=== PATIENT | female | born 1955 | race Caucasian/White ===

== ENCOUNTER 2016-03-10 02:53 | Emergency (ER) | payer MEDICARE, MEDICAID ==
[2016-03-10] MEDS ORDERED: Albuterol/Ipratropium NEB.SOL* Albuterol 2.5 MG/Ipratropium 0.5 MG 3 ML INH ONE (03:31)
[2016-03-10 04:52] LABS: Hematocrit 38 % (35-47); Hemoglobin 12.5 g/dl (12.0-16.0); Mean Corpuscular HGB Conc 33 g/dl (31-36); Mean Corpuscular Hemoglobin 31 pg (27-31); Mean Corpuscular Volume 94 fL (80-97); Mean Platelet Volume 8 um3 (7.4-10.4); Red Blood Count 4.02 10^6/ul (4.0-5.4); Red Cell Distribution Width 14 % (10.5-15); White Blood Count 8.3 10^3/ul (3.5-10.8)
[2016-03-10 04:53] LABS: Albumin 3.8 g/dL (3.2-5.2); BUN/Creatinine Ratio 17.1 (8-20); C Reactive Protein 15.17 mg/L (< 5.00); Calcium 9.8 mg/dL (8.6-10.3); EGFR African American 100.2 (>60); EGFR Non-African American 77.9 (>60); Globulin 3.3 g/dL (2-4); Magnesium 2.1 mg/dL (1.9-2.7); Potassium 3.9 mmol/L (3.5-5.0); Total Bilirubin 0.4 mg/dL (0.2-1.0); Total Protein 7.1 g/dL (6.4-8.9)
[2016-03-10 04:56] LABS: Troponin I 0.01 ng/mL (<0.04)
[2016-03-10 05:43] VITALS: BP 138/83
[2016-03-10] MEDS ORDERED: Azithromycin TAB* 250 MG PO ONE (05:44)
--- NOTE | 2016-03-10 05:49 | ED ---
Jim Brower Adam, scribed for Jefferson Avila MD on 03/10/16 at 0323 . Respiratory - HPI Summary HPI Summary: Pt is a 60 year old female brought in from [facility] with low o2 sat. She was given a breathing treatment prior to coming to the ED. She also presents with cough and congestion which have been present for 2 weeks. Negative Hx of COPD and she is not on home o2. PMHx of MS. Positive tobacco Hx. - History of Current Complaint Chief Complaint: EDUpperRespComplaint Stated Complaint: COUGH Hx Obtained From: Patient Onset/Duration: Gradual Onset, Lasting Weeks, Still Present Timing: Constant Initial Severity: Moderate Current Severity: Moderate Character: Cough (Productive), Dyspnea at Rest Sputum Amount: Moderate Aggravating Factor(s): Nothing Alleviating Factor(s): Nothing - Allergy/Home Medications Allergies/Adverse Reactions: Allergies Allergy/AdvReac Type Severity Reaction Status Date / Time Latex Allergy Unknown Verified 07/02/15 15:24 Reaction Details PMH/Surg Hx/FS Hx/Imm Hx Endocrine/Hematology History: Denies: Hx Anticoagulant Therapy, Hx Diabetes, Hx Thyroid Disease Cardiovascular History: Reports: Other Cardiovascular Problems/Disorders - PVD Denies: Hx Congestive Heart Failure, Hx Hypertension, Hx Pacemaker/ICD Respiratory History: Reports: Hx Chronic Obstructive Pulmonary Disease (COPD) Denies: Hx Asthma, Other Respiratory Problems/Disorders GI History: Reports: Hx Gastroesophageal Reflux Disease, Other GI Disorders - chronic constipation History: Reports: Other Problems/Disorders - frequent UTI Denies: Hx Dialysis, Hx Renal Disease Musculoskeletal History: Reports: Other Musculoskeletal History - chronic right leg pain, contractures d/t MS Comment Only: Hx Arthritis - OSTEO Sensory History: Reports: Hx Cataracts, Hx Contacts or Glasses Denies: Hx Hearing Aid Opthamlomology History: Reports: Hx Cataracts, Hx Contacts or Glasses Neurological History: Reports: Other Neuro Impairments/Disorders - ADVANCED MS, QUADRAPALEGIC Denies: Hx Dementia, Hx Seizures Psychiatric History: Reports: Hx Anxiety, Hx Depression, Hx Substance Abuse, Other Psychiatric Issues/Disorders - insomnia Denies: Hx Panic Disorder - Surgical History Surgery Procedure, Year, and Place: 3 skin grafts on right arm; URETERAL STENT, [facility] 2009, [facility], RIGHT ILIAC ARTERY; cataract repair Hx Anesthesia Reactions: No Infectious Disease History: No Infectious Disease History: Denies: Hx Hepatitis, Hx Human Immunodeficiency Virus (HIV), Traveled Outside the [place] in Last 30 Days - Family History Known Family History: Positive: Other - Negative malignant hyperthermia, negative anesthesia reaction - Social History Occupation: Disabled Lives: [employer] Alcohol Use: None Hx Substance Use: No Substance Use Type: Reports: None Hx Tobacco Use: Yes Smoking Status (MU): Former Smoker Review of Systems Positive: Other - Congestion Positive: Shortness Of Breath, Cough All Other Systems Reviewed And Are Negative: Yes Physical Exam Triage Information Reviewed: Yes Vital Signs On Initial Exam: Initial Vitals Temp Pulse Resp BP Pulse Ox 96.4 F 84 16 170/84 96 03/10/16 02:56 03/10/16 02:56 03/10/16 02:56 03/10/16 02:56 03/10/16 02:56 Vital Signs Reviewed: Yes Appearance: Positive: Well-Appearing, No Pain Distress Skin: Positive: Warm, Skin Color Reflects Adequate Perfusion, Dry Head/Face: Positive: Normal Head/Face Inspection Eyes: Positive: EOMI, EMILY ENT: Positive: Normal ENT inspection Neck: Positive: Supple, Nontender Respiratory/Lung Sounds: Positive: Rhonchi - Bilaterally Cardiovascular: Positive: RRR Abdomen Description: Positive: Nontender, Soft Bowel Sounds: Positive: Present Musculoskeletal: Positive: Other - Not moving upper or lower extremities. Neurological: Positive: Normal, Sensory/Motor Intact, Alert, Oriented to Person Place, Time Psychiatric: Positive: Affect/Mood Appropriate Diagnostics - Vital Signs Vital Signs Temp Pulse Resp BP Pulse Ox 03/10/16 02:56 96.4 F 84 16 170/84 96 - Laboratory Lab Results: Lab Results 03/10/16 03/10/16 03/10/16 Range/Units 04:00 04:00 04:00 WBC 8.3 (3.5-10.8) 10^3/ul RBC 4.02 (4.0-5.4) 10^6/ul Hgb 12.5 (12.0-16.0) g/dl Hct 38 (35-47) % MCV 94 (80-97) fL MCH 31 (27-31) pg MCHC 33 (31-36) g/dl RDW 14 (10.5-15) % Plt Count 309 (150-450) 10^3/ul MPV 8 (7.4-10.4) um3 Neut % (Auto) 78.3 (38-83) % Lymph % (Auto) 15.2 L (25-47) % Concho % (Auto) 3.9 (1-9) % Eos % (Auto) 1.5 (0-6) % Baso % (Auto) 1.1 (0-2) % Absolute Neuts (auto) 6.5 (1.5-7.7) 10^3/ul Absolute Lymphs (auto) 1.3 (1.0-4.8) 10^3/ul Absolute Monos (auto) 0.3 (0-0.8) 10^3/ul Absolute Eos (auto) 0.1 (0-0.6) 10^3/ul Absolute Basos (auto) 0.1 (0-0.2) 10^3/ul Absolute Nucleated RBC 0 10^3/ul Nucleated RBC % 0 INR (Anticoag Therapy) 0.92 (0.89-1.11) APTT 28.3 (26.0-36.3) seconds Sodium 137 (133-145) mmol/L Potassium 3.9 (3.5-5.0) mmol/L Chloride 100 L (101-111) mmol/L Carbon Dioxide 30 (22-32) mmol/L Anion Gap 7 (2-11) mmol/L BUN 13 (6-24) mg/dL Creatinine 0.76 (0.51-0.95) mg/dL Est GFR ( Amer) 100.2 (>60) Est GFR (Non-Af Amer) 77.9 (>60) BUN/Creatinine Ratio 17.1 (8-20) Glucose 116 H (70-100) mg/dL Lactic Acid (0.5-2.0) mmol/L Calcium 9.8 (8.6-10.3) mg/dL Magnesium 2.1 (1.9-2.7) mg/dL Total Bilirubin 0.40 (0.2-1.0) mg/dL AST 16 (13-39) U/L ALT 12 (7-52) U/L Alkaline Phosphatase 130 H (34-104) U/L Total Creatine Kinase 23 (10-223) U/L CK-MB (CK-2) 1.0 (0.6-6.3) ng/mL Troponin I 0.01 (<0.04) ng/mL C-Reactive Protein 15.17 H (< 5.00) mg/L B-Natriuretic Peptide ( - 100) pg/mL Total Protein 7.1 (6.4-8.9) g/dL Albumin 3.8 (3.2-5.2) g/dL Globulin 3.3 (2-4) g/dL Albumin/Globulin Ratio 1.2 (1-3) Lipase 50 (11.0-82.0) U/L 03/10/16 03/10/16 Range/Units 04:00 04:00 WBC (3.5-10.8) 10^3/ul RBC (4.0-5.4) 10^6/ul Hgb (12.0-16.0) g/dl Hct (35-47) % MCV (80-97) fL MCH (27-31) pg MCHC (31-36) g/dl RDW (10.5-15) % Plt Count (150-450) 10^3/ul MPV (7.4-10.4) um3 Neut % (Auto) (38-83) % Lymph % (Auto) (25-47) % Concho % (Auto) (1-9) % Eos % (Auto) (0-6) % Baso % (Auto) (0-2) % Absolute Neuts (auto) (1.5-7.7) 10^3/ul Absolute Lymphs (auto) (1.0-4.8) 10^3/ul Absolute Monos (auto) (0-0.8) 10^3/ul Absolute Eos (auto) (0-0.6) 10^3/ul Absolute Basos (auto) (0-0.2) 10^3/ul Absolute Nucleated RBC 10^3/ul Nucleated RBC % INR (Anticoag Therapy) (0.89-1.11) APTT (26.0-36.3) seconds Sodium (133-145) mmol/L Potassium (3.5-5.0) mmol/L Chloride (101-111) mmol/L Carbon Dioxide (22-32) mmol/L Anion Gap (2-11) mmol/L BUN (6-24) mg/dL Creatinine (0.51-0.95) mg/dL Est GFR ( Amer) (>60) Est GFR (Non-Af Amer) (>60) BUN/Creatinine Ratio (8-20) Glucose (70-100) mg/dL Lactic Acid 1.0 (0.5-2.0) mmol/L Calcium (8.6-10.3) mg/dL Magnesium (1.9-2.7) mg/dL Total Bilirubin (0.2-1.0) mg/dL AST (13-39) U/L ALT (7-52) U/L Alkaline Phosphatase (34-104) U/L Total Creatine Kinase (10-223) U/L CK-MB (CK-2) (0.6-6.3) ng/mL Troponin I (<0.04) ng/mL C-Reactive Protein (< 5.00) mg/L B-Natriuretic Peptide 39 ( - 100) pg/mL Total Protein (6.4-8.9) g/dL Albumin (3.2-5.2) g/dL Globulin (2-4) g/dL Albumin/Globulin Ratio (1-3) Lipase (11.0-82.0) U/L Result Diagrams: 03/10/16 04:00 03/10/16 04:00 Lab Statement: Any lab studies that have been ordered have been reviewed, and results considered in the medical decision making process. - Additional Comments Diagnostic Additional Comments: Troponin I - 0.01 Disposition - Course Assessment/Plan: PATIENT HAS RHONCHI. IMPROVED AFTER DUONEB. O2 SATS HAVE STAYED IN 90S ON RA IN ED. DISCHARGE HOME STABLE ON ZPAC AND DUONEBS Q 6 HOURS PRN. - Diagnoses Provider Diagnoses: Bronchitis Discharge - Discharge Plan Condition: Stable Disposition: HOME Patient Education Materials: Acute Bronchitis (ED) Referrals: Jael, [Primary Care Provider] - Additional Instructions: FOLLOW UP WITH YOUR DOCTOR. USE YOUR NEBULIZER EVERY 6 HOURS NEEDED. TAKE AZITHROMYCIN 250MG ONCE A DAY FOR 4 DAYS, STARTING IN THE AM OF 03/11/16. RETURN TO THE EMERGENCY DEPARTMENT FOR ANY WORSENING OF YOUR CONDITION OR QUESTIONS OR CONCERNS. The documentation as recorded by the Jim hung Adam accurately reflects the service I personally performed and the decisions made by me, Jefferson Avila MD.
--- NOTE | 2016-03-10 08:35 | RAD ---
INDICATION: Cough and shortness of breath. COMPARISON: Comparison is made with a prior study from June 26, 2015. TECHNIQUE: A portable view of the chest was obtained. FINDINGS: Cardiac and mediastinal contours appear to be within normal limits. The lungs are underinflated with more focal elevation of the right hemidiaphragm which is unchanged. There are small linear densities at the left lung base most consistent with subsegmental atelectasis. The lungs are otherwise clear. No pleural effusion is seen. IMPRESSION: EXPIRATORY EXAM, NO EVIDENCE FOR ACUTE FINDING.
== END 2016-03-10 06:15 | disposition home or self-care (01) ==
LOC: ED 02:53
DX: J40 Bronchitis, not specified as acute or chronic (principal); R06.02 Shortness of breath; R09.02 Hypoxemia; R05 Cough; Z87.891 Personal history of nicotine dependence
CPT/HCPCS: 36415; 71010; 80053; 82550; 82553; 83605; 83690; 83735; 83880; 84484; 85025; 85610; 85730; 86140; 87040; 99284; A9270-GY

== ENCOUNTER 2016-07-26 09:45 | Inpatient (IN) | payer MEDICARE, MEDICAID ==
[2016-07-26] MEDS ORDERED: NS 0.9% 1000 ML* 1,000 ML IV ONE (10:17)
--- NOTE | 2016-07-26 10:57 | RAD ---
INDICATION: Short of breath COMPARISON: March 10, 2016 TECHNIQUE: PA and lateral views were obtained. FINDINGS: Bones/Soft Tissues: There are no acute bony findings. Cardiomediastinal: The heart is normal in size. Lungs: There is interstitial and early alveolar edema with early alveolar change. Pleura: Small bilateral pleural effusions. There is fluid in the fissures. Other: None IMPRESSION: MODERATE VASCULAR CONGESTIVE FINDINGS. SUGGEST FOLLOW-UP.
[2016-07-26 11:37] LABS: Hematocrit 37 % (35-47); Hemoglobin 11.8 g/dl (12.0-16.0); Mean Corpuscular HGB Conc 32 g/dl (31-36); Mean Corpuscular Hemoglobin 29 pg (27-31); Mean Corpuscular Volume 90 fL (80-97); Mean Platelet Volume 8 um3 (7.4-10.4); Red Blood Count 4.14 10^6/ul (4.0-5.4); Red Cell Distribution Width 15 % (10.5-15)
[2016-07-26 11:58] LABS: Albumin 3.4 g/dL (3.2-5.2); C Reactive Protein 17.63 mg/L (< 5.00); Calcium 9.3 mg/dL (8.6-10.3); EGFR African American 183.4 (>60); EGFR Non-African American 142.6 (>60); Globulin 3.4 g/dL (2-4); Potassium 4.1 mmol/L (3.5-5.0); Total Bilirubin 0.4 mg/dL (0.2-1.0); Total Protein 6.8 g/dL (6.4-8.9)
[2016-07-26 11:59] LABS: Troponin I 0.01 ng/mL (<0.04)
[2016-07-26 13:06] LABS: FIO2 5
[2016-07-26 13:20] LABS: PCO2 Arterial 60 mmHg (35-45)
[2016-07-26] MEDS ORDERED: Furosemide IV* 10 MG/ML 2 ML VIAL (20 MG) IV SLOW PU ONE (13:35)
[2016-07-26] MEDS ORDERED: Nitroglycerin 2% OINT* 1 GM PAK ONE (13:37)
[2016-07-26] MEDS ORDERED: Furosemide IV* 10 MG/ML VIAL (40 MG) ONE (13:37)
--- NOTE | 2016-07-26 13:39 | ED ---
Denilson Brower SooYoung, scribed for Shree Jacobsen MD on 07/26/16 at 1012 . Shortness of Breath - HPI Summary HPI Summary: A 60 y/o F BIBA presents to ED with c/o worsening SOB onset [employer]. Pert PMHx: MS, dx: PNA three days ago. Pt states she was taking a shower, and when she turned back toward her caregiver, the caregiver stated that the pt's face was purple. Associated sx: chest tightness, cough. Denies fever and other sx. MS. Pt uses a wheelchair. - History of Current Complaint Chief Complaint: EDShortnessOfBreath Time Seen by Provider: 07/26/16 10:06 Hx Obtained From: Patient Onset/Duration: Sudden Onset, Still Present Timing: Constant Dyspnea At: Rest - Allergy/Home Medications Allergies/Adverse Reactions: Allergies Allergy/AdvReac Type Severity Reaction Status Date / Time Latex Allergy Unknown Verified 07/02/15 15:24 Reaction Details PMH/Surg Hx/FS Hx/Imm Hx Previously Healthy: No Endocrine/Hematology History: Denies: Hx Anticoagulant Therapy, Hx Diabetes, Hx Thyroid Disease Cardiovascular History: Reports: Other Cardiovascular Problems/Disorders - PVD Denies: Hx Congestive Heart Failure, Hx Hypertension, Hx Pacemaker/ICD Respiratory History: Reports: Hx Chronic Obstructive Pulmonary Disease (COPD) Denies: Hx Asthma, Other Respiratory Problems/Disorders GI History: Reports: Hx Gastroesophageal Reflux Disease, Other GI Disorders - chronic constipation History: Reports: Other Problems/Disorders - frequent UTI Denies: Hx Dialysis, Hx Renal Disease Musculoskeletal History: Reports: Other Musculoskeletal History - chronic right leg pain, contractures d/t MS Comment Only: Hx Arthritis - OSTEO Sensory History: Reports: Hx Cataracts, Hx Contacts or Glasses Denies: Hx Hearing Aid Opthamlomology History: Reports: Hx Cataracts, Hx Contacts or Glasses Neurological History: Reports: Other Neuro Impairments/Disorders - ADVANCED MS, QUADRAPALEGIC Denies: Hx Dementia, Hx Seizures Psychiatric History: Reports: Hx Anxiety, Hx Depression, Hx Substance Abuse, Other Psychiatric Issues/Disorders - insomnia Denies: Hx Panic Disorder - Surgical History Surgery Procedure, Year, and Place: 3 skin grafts on right arm; URETERAL STENT, [facility] 2009, [facility], RIGHT ILIAC ARTERY; cataract repair Hx Anesthesia Reactions: No - Immunization History Date of Tetanus Vaccine: unknown Date of Influenza Vaccine: UTD Infectious Disease History: No Infectious Disease History: Denies: Hx Hepatitis, Hx Human Immunodeficiency Virus (HIV), Traveled Outside the [place] in Last 30 Days - Family History Known Family History: Positive: Other - Negative malignant hyperthermia, negative anesthesia reaction - Social History Occupation: Disabled Lives: Assisted Living Alcohol Use: None Hx Substance Use: No Substance Use Type: Reports: None Hx Tobacco Use: Yes Smoking Status (MU): Former Smoker Review of Systems Negative: Fever Positive: Other - pos: chest tightness Positive: Shortness Of Breath, Cough All Other Systems Reviewed And Are Negative: Yes Physical Exam - Summary Physical Exam Summary: VITAL SIGNS: Reviewed. GENERAL: Patient is a well developed and nourished female who is lying comfortable in the stretcher. Patient is not in any acute respiratory distress. HEAD AND FACE: No signs of trauma. No ecchymosis, hematomas or skull depressions. EYES: PERRLA, EOMI x 2, No injected conjunctiva, no nystagmus. EARS: Hearing grossly intact. Ear canals and tympanic membranes are within normal limits. MOUTH: Oropharynx within normal limits. Patient is a face mask. NECK: Supple, trachea is midline, no adenopathy, no JVD, no carotid bruit, no c- spine tenderness, neck with full ROM. CHEST: Symmetric, no tenderness at palpation LUNGS: Positive crackles in both bases of the lungs. CVS: Regular rate and rhythm, S1 and S2 present, no murmurs or gallops appreciated. ABDOMEN: Soft, non-tender. No signs of distention. No rebound no guarding, and no masses palpated. Bowel sounds are normal. EXTREMITIES: Positive atrophy of upper and lower extremities. No edema noted. NEURO: Alert and oriented x 3. SKIN: Dry and warm Triage Information Reviewed: Yes Vital Signs On Initial Exam: Initial Vitals Temp Pulse Resp BP Pulse Ox 98.3 F 78 20 177/74 91 07/26/16 09:53 07/26/16 09:53 07/26/16 09:53 07/26/16 09:53 07/26/16 09:53 Vital Signs Reviewed: Yes - Randolph Coma Scale Coma Scale Total: 15 Diagnostics - Vital Signs Vital Signs Temp Pulse Resp BP Pulse Ox 07/26/16 09:53 98.3 F 78 20 177/74 91 - Laboratory Result Diagrams: 07/26/16 11:10 07/26/16 11:10 Lab Statement: Any lab studies that have been ordered have been reviewed, and results considered in the medical decision making process. - Radiology CXR Xray Interpretation: Positive (See Comments) - IMPRESSION: MODERATE VASCULAR CONGESTIVE FINDINGS. SUGGEST FOLLOW-UP. Radiology Interpretation Completed By: Radiologist - EKG 1 Cardiac Rate: NL - 77bpm EKG Rhythm: Sinus Rhythm ST Segment: Normal Re-Evaluation - Re-Evaluation 1 Re-Evaluation Time: 12:49 Change: Unchanged Comment: Pt is still having SOB, will consult with hospitalist. Course/Dx - Course Assessment/Plan: A 60 y/o F BIBA presents to ED with c/o worsening SOB onset [employer]. Pert PMHx: MS, dx: PNA three days ago. Pt states she was taking a shower, and when she turned back toward her caregiver, the caregiver stated that the pt' s face was purple. Associated sx: chest tightness, cough. Denies fever and other sx. MS. Pt uses a wheelchair. Blood work shows. EKG: NSR at 77 bpm. CXR : Positive for congestion. No infiltrates. In the ED course she is in O2 mask. CXR shows a lot of congestion and even though the BNP is not elevated I think she is in failure. She will be given Lasix. I this time I discussed the case with Dr. Wolfe who accepted the patient for admission. She is hemodynamically stable and A+O x 3. - Diagnoses Differential Diagnosis/HQI/PQRI: Positive: CHF, COPD Exacerbation, Pneumonia, Pulmonary Edema Provider Diagnoses: CHF (congestive heart failure), Hypoxia - Physician Notifications Discussed Care of Patient With: Mary Wolfe - hospitalist Time Discussed With Above Provider: 13:03 Instructed by Provider To: Admit As Inpatient Discharge - Discharge Plan Condition: Stable Disposition: ADMITTED TO [facility] Referrals: Jael, [Primary Care Provider] - The documentation as recorded by the Denilson hung SooYoung accurately reflects the service I personally performed and the decisions made by me, Shree Jacobsen MD.
[2016-07-26] MEDS: Nitroglycerin 2% OINT* 1 GM PAK TOPICAL SCH ×2 (13:40→22:12)
[2016-07-26] MEDS ORDERED: Acetaminophen TAB* 325 MG PO PRN (13:43)
[2016-07-26] MEDS ORDERED: Furosemide IV* 10 MG/ML VIAL (40 MG) IV SLOW PU ONE (13:43)
[2016-07-26 14:09] LABS: Urine Bacteria 3+ (Absent); Urine Bilirubin Negative (Negative); Urine Glucose Negative (Negative); Urine Nitrite Positive (Negative)
[2016-07-26 15:50] LABS: Urine Bacteria 1+ (Absent); Urine Bilirubin Negative (Negative); Urine Glucose Negative (Negative); Urine Nitrite Negative (Negative)
[2016-07-26] MEDS: Heparin VIAL(*) 5000 UNITS/ML VIAL (FIVE THOUSAND) SUBCUT SCH ×2 (16:05→22:12)
--- NOTE | 2016-07-26 16:33 | HP ---
ATTENDING PHYSICIAN ADDENDUM NOW INCLUDED ON THIS REPORT HISTORY AND PHYSICAL: DATE OF ADMISSION: 07/26/16 PRIMARY CARE PROVIDER: Kelly Dugan NP, [facility]. ATTENDING PHYSICIAN WHILE IN THE HOSPITAL: Mary Wolfe MD *( report dictated by Quan Moore NP). CHIEF COMPLAINT: 1. Shortness of breath. 2. Hypoxia. HISTORY OF PRESENT ILLNESS: Ms. Anglin is a 60-year-old female patient who comes in to the ER today stating that she has had progressive worsening shortness of breath over the last several days. She states she was recently diagnosed with pneumonia and put on antibiotics, but despite this, there is no improvement. She states she does like to eat potato chips on almost a daily basis. She has a history of peripheral vascular disease, GERD, MS, and history of sacral ulcers. She was sent in today because the [facility] staff apparently was turning the patient and it was noted that she became hypoxic, her face became blue and she immediately required oxygen which was new for her, so they brought her into the ER. The patient states that she has not had any fever to her knowledge. She has a weak cough, it has been nonproductive and she has a hard time with the cough and she states that she has noticed though that her pants are tighter. She has also noticed that when she takes the ARLEEN stockings off that she has what she calls a divot in her legs from the stockings and she has also noticed that when she lies flat she is more short of breath. She was requiring 5 L of oxygen to maintain her O2 saturations and she denied having any abdominal pain or any nausea, vomiting. No dysuria, frequency. There was no seizure, no loss of consciousness. The patient was brought into the hospital , she was evaluated and there was concern for possible CHF because chest x- ray did show a moderate amount of fluid on the lungs. In addition to this, it was noted that her blood pressures were significantly elevated and systolics near 200, so the hospitalist service was asked to evaluate for this. PAST MEDICAL HISTORY: Significant for: 1. PVD. 2. Sacral ulcer. 3. GERD. 4. MS. PAST SURGICAL HISTORY: 1. The patient has had skin grafting to the right upper extremity. 2. She has had a right lower extremity stenting for peripheral vascular disease. 3. She had tubal ligation. HOME MEDICATIONS: According to the list; 1. Zanaflex 2 mg p.o. daily as needed 2. Oxycodone 5 mg p.o. t.i.d. 3. Zanaflex 6 mg in the morning, 6 mg at bedtime. 4. Spiriva 1 capsule inhaled daily. 5. Flomax 0.4 mg p.o. daily. 6. Zocor 40 mg daily. 7. MiraLAX 17 g p.o. daily. 8. Multivitamin 1 tablet daily. 9. Methotrexate 5 mg weekly. 10. Folic acid 800 mcg p.o. daily. 11. Colace 200 mg at bedtime. 12. Baclofen 10 mg at 1 o'clock. 13. Baclofen 30 mg p.o. b.i.d. 14. Bupropion 300 mg daily. 15. Calcium and vitamin D 1 tablet p.o. b.i.d. 16. Artificial tears 1 to 2 drops p.o. both eyes 4 times a day as needed. 17. Tylenol 325 mg p.o. every 6 hours as needed. ALLERGIES: To medications include KETOCONAZOLE and LATEX. FAMILY HISTORY: Mother had lupus. Father's history is unknown. SOCIAL HISTORY: The patient is a former smoker. She is also a former alcoholic. She lives at [facility]. Surrogate decision maker is her daughter. REVIEW OF SYSTEMS: There is no documented fever. She is unaware of weight change, although she does think she is gaining weight because her pants are tighter. There has been no double vision. No ear discharge. Denies having any rhinorrhea. No sore throat. No thyroid enlargement. Denied having any chest pain. There was orthopnea. There is dyspnea on exertion. No abdominal pain. No nausea. No vomiting. No dysuria. No frequency. There is no loss of consciousness. No pruritus and no skin ulcerations. Review of 14 systems completed, all others negative. PHYSICAL EXAMINATION GENERAL: At this time, Ms. Anglin is a 60-year-old female patient. She is chronically ill appearing. She is sitting in the ER stretcher. She does not appear to be in any acute distress. VITAL SIGNS: Blood pressure 199/83, pulse 85, respirations 20, O2 sat 92% on 5 L, temperature 98.3. HEENT: Head is atraumatic and normocephalic. Eyes: EOMs are intact. Sclerae anicteric and not pale. Throat: Oral mucosa appears to be moist. No oropharyngeal erythema. NECK: Supple. LUNGS: She had crackles bilaterally. She had equal diaphragmatic expansion. HEART: Sounds S1, S2. Regular rate and rhythm. No murmurs, rubs or gallops. ABDOMEN: Soft, flat, nontender. Bowel sounds were present. EXTREMITIES: She has no range of motion of any extremities. She has no strength. There is significant weakness to all 4 extremities. She did have some +2 pitting edema bilaterally. NEUROLOGIC: She is awake, alert, oriented x3. She had no gross obvious focal deficits. SKIN: Intact except that she has a stage 3 pressure ulcer to her sacrum. LABORATORY DATA: Today revealed WBC 7.0, RBC of 4.14, hemoglobin 11.8, hematocrit 37, platelet count of 290,000. D-dimer less than 200. Blood gas showed a pH of 7.34, pCO2 of 60, pO2 of 60, bicarb of 28. Chemistry reveals sodium 137, potassium 4.1, chloride 101, bicarb of 30, BUN 9, creatinine 0.45, glucose 84, lactate 0.6, calcium 9.3, total bilirubin 0.4, AST 16, ALT 11, alk phos 149. CK-MB 1.6. Troponin 0.01. CRP 17. BNP 117. Albumin 3.4, procalcitonin 0.1. IMAGING: She had a chest x-ray, under my review today, to me it looks like she has a significant amount of pulmonary vascular congestion. Radiology read it as moderate vascular congestion. Suggest followup. She did have an EKG obtained today as well, which revealed a normal sinus rhythm with a rate of 77. No ST elevations or T-wave inversions. This was reviewed to the previous EKG , appears to be similar. Old medical records were reviewed. ASSESSMENT AND PLAN: Ms. Anglin is a 60-year-old female patient coming into the ER today with complaints of shortness of breath and hypoxia. On evaluation , there is concern for possible congestive heart failure. She will be admitted under inpatient status for: 1. Shortness of breath. I suspect the etiology of this is probably congestive heart failure. She has elevated blood pressure. Procalcitonin is normal. X- ray is concerning. It could be from uncontrolled high blood pressure. My plan is to go ahead and put a nitro patch on her chest 1 inch every 8 hours, daily weights, telemetry, cycle her troponins, get an echo, give her 40 of Lasix, and check her I's and O's and follow her and diurese her as needed and see if this helps her. I do not think she is actively infected. If she spikes a fever, then I would put her on antibiotics, and pulmonary embolism is less likely as her D-dimer is less than 200, so I think this is congestive heart failure. She certainly has a diet high in salts, states she does like potato chips which could all certainly lead to uncontrolled blood pressure, thus leading to some heart failure, so I think we will diurese her and continue to follow. 2. Peripheral vascular disease. Continue with her current medical regimen. 3. History of multiple sclerosis. Again, we will continue with her current meds. 4. Gastroesophageal reflux disease, continue PPI therapy. 5. Sacral ulcer, I did order Mepilex. 6. DVT prophylaxis, she is high risk and will be placed on heparin subcu. 7. Code status: She is DNR. TIME SPENT: Time spent on the admission was approximately 60 minutes; greater than half the time was spent [id number] with the patient obtaining my history and physical, the other half the time was spent going over the plan of care with the patient and implementing the plan of care. I discussed the plan of care with my attending, Dr. Wolfe, she is in agreement. QUAN MOORE NP ADDENDUM: DATE OF ADMISSION: 07/26/16 Ms. Anglin is a 60-year-old female who has a history of multiple sclerosis and is a [facility] patient. The patient had been treated for pneumonia as outpatient. She presents with worsening of shortness of breath. Her chest x- ray shows vascular congestion. Her systolic blood pressures are in the 180s. She is going to be admitted with a working diagnosis of acute diastolic CHF. For further details of the patient's presentation and plan, please see history and physical dictated by Quan Moore NP, on 07/26/16 with which I agree. MARY WOLFE MD CC: Kelly Dugan NP, [facility]* [id number]/CPS #: [id number] #: [id number] [facility]
--- NOTE | 2016-07-26 16:59 | HP ---
HISTORY AND PHYSICAL:* ADDENDUM: DATE OF ADMISSION: 07/26/16 Ms. Anglin is a 60-year-old female who has a history of multiple sclerosis and is a residential patient. The patient had been treated for pneumonia as outpatient. She presents with worsening of shortness of breath. Her chest x- ray shows vascular congestion. Her systolic blood pressures are in the 180s. She is going to be admitted with a working diagnosis of acute diastolic CHF. For further details of the patient's presentation and plan, please see history and physical dictated by Quan Moore NP, on 07/26/16 with which I agree. [id number]/CPS #: [id number] MTDD
[2016-07-26] MEDS ORDERED: Docusate CAP* 100 MG PO SCH (21:00)
[2016-07-26] MEDS: Potassium Chlor TAB* 20 MEQ TAB.ER PO SCH (22:11)
[2016-07-26] MEDS: Mirtazapine TAB* 15 MG PO SCH (22:11)
[2016-07-26] MEDS: Baclofen TAB* 20 MG PO SCH (22:11)
[2016-07-26] MEDS: Senna TAB PO SCH (22:11)
[2016-07-26] MEDS: Tamsulosin CAP* 0.4 MG PO SCH (22:12)
[2016-07-27] MEDS: Heparin VIAL(*) 5000 UNITS/ML VIAL (FIVE THOUSAND) SUBCUT SCH ×2 (05:35→13:03)
[2016-07-27] MEDS: Nitroglycerin 2% OINT* 1 GM PAK TOPICAL SCH ×2 (05:36→13:04)
[2016-07-27 06:06] LABS: Hematocrit 34 % (35-47); Mean Corpuscular HGB Conc 32 g/dl (31-36); Mean Corpuscular Hemoglobin 29 pg (27-31); Mean Corpuscular Volume 89 fL (80-97); Mean Platelet Volume 8 um3 (7.4-10.4); Red Blood Count 3.85 10^6/ul (4.0-5.4); Red Cell Distribution Width 15 % (10.5-15); White Blood Count 5.2 10^3/ul (3.5-10.8)
[2016-07-27 06:21] LABS: BUN/Creatinine Ratio 23.9 (8-20); Calcium 8.8 mg/dL (8.6-10.3); EGFR African American 178.8 (>60); Potassium 3.8 mmol/L (3.5-5.0)
--- NOTE | 2016-07-27 08:26 | ECHO ---
Patient: TIMOTHY AVINA [facility] Rec#: [id number] : 1955 Date: 07/26/2016 Age: 60y Height: 157.48 cm / 62.0 in Weight: 58.97 kg / 130.0 lbs Sex: F BSA: 1.59 Room#: 446 Admit Date#: 07/26/2016 Type: Inpatient Referring: Quan Moore NP Reading: Joshua Cooper MD Emergency Room Specialist: Nikki Smyth RDCS,RDMS Transthoracic Echocardiogram Indication: CHF BP: 199/83 HR: 71 Rhythm: NSR Findings History: MS, PVD, former smoker and ETOH. Technical Comments: The study quality is fair. Completed 1610 Left Ventricle: The left ventricular chamber size is normal. Mild to moderate concentric left ventricular hypertrophy is observed. Global left ventricular wall motion and contractility are within normal limits. Left ventricular systolic function is at the lower limits of normal. The estimated ejection fraction is 50-55%. Abnormal left ventricular diastolic filling is observed, consistent with impaired relaxation. Left Atrium: The left atrial chamber size is normal. Right Ventricle: The right ventricular chamber size and systolic function are within normal limits. The right ventricle wall thickness is mildly increased. Right Atrium: The right atrial cavity size is normal. Aortic Valve: The aortic valve is trileaflet. There is aortic annular calcification. There is a trace of aortic regurgitation. There is no evidence of aortic stenosis. Mitral Valve: The mitral valve leaflets are mildly thickened. There is a trace of mitral regurgitation. There is no evidence of mitral stenosis. Tricuspid Valve: The tricuspid valve leaflets are normal. There is mild tricuspid regurgitation. There is evidence of mild to moderate pulmonary hypertension. Pulmonic Valve: The pulmonic valve appears normal. There is a trace pulmonic regurgitation. Pericardium: There is no significant pericardial effusion. A left pleural effusion is present. Aorta: The aortic root appears normal. There is no dilatation of the aortic arch. There is plaque visualized in the transverse aorta. Pulmonary Artery: The main pulmonary artery appears normal. Venous: The inferior vena cava appears normal in size. There is a greater than 50% respiratory change in the inferior vena cava dimension. Summary: There are no significant changes when compared to the previous study done on 11/12/2008 Conclusions Mild to moderate concentric left ventricular hypertrophy is observed. Left ventricular systolic function is at the lower limits of normal. The estimated ejection fraction is 50-55%. The right ventricular chamber size and systolic function are within normal limits. There is a trace of aortic regurgitation. There is no evidence of aortic stenosis. There is a trace of mitral regurgitation. There is mild tricuspid regurgitation. There is evidence of mild to moderate pulmonary hypertension. There is no significant pericardial effusion. Measurements Name Value Normal Range RVIDd (AP) 2D 2.4 cm (0.9 - 2.6) RVDdMajor (2D) 3.3 cm (2.2 - 4.4) RAd ISD 4CH 4.1 cm (3.4 - 4.9) RA (A4C)W 3.1 cm (2.9 - 4.6) IVSd (2D) 1.3 cm (0.6 - 1) LVPWd (2D) 1.4 cm (0.6 - 1) LVIDd (2D) 4.1 cm (3.6 - 5.4) LVIDs (2D) 3.1 cm - LV FS (2D) 24 % (25 - 45) Aortic Annulus 2.2 cm (1.4 - 2.6) Ao root diameter (2D) 3.1 cm (2.1 - 3.5) Ascending Ao 3.3 cm (2.1 - 3.4) Aortic arch 3.1 cm (1.8 - 3.4) LA dimension (AP) 2D 3.3 cm (2.3 - 3.8) LAd ISD 4CH 4.9 cm (2.9 - 5.3) LA ISD 4CH W 4.1 cm (2.5 - 4.5) Name Value Normal Range LA ESV SP 4CH (A/L) 47.27 ml - LA ESV SP 2CH (A/L) 34.52 ml - LA ESV BP (A/L) 42.52 ml - LA ESV BP (A/L) index 27 ml/m2 - LA ESV SP 4CH (MOD) 44.22 ml - LA ESV SP 2CH (MOD) 31.3 ml - Name Value Normal Range MV E-wave Vmax 0.5 m/sec - MV deceleration time 191 msec - MV A-wave Vmax 0.6 m/sec - MV E:A ratio 0.7 ratio - LV septal e' Vmax 0.05 m/sec - LV lateral e' Vmax 0.05 m/sec - LV E:e' septal ratio 10 ratio - LV E:e' lateral ratio 10 ratio - Name Value Normal Range AV Vmax 1.2 m/sec - AV VTI 21.7 cm - AV peak gradient 6 mmHg - AV mean gradient 2.9 mmHg - LVOT Vmax 0.9 m/sec - LVOT VTI 17.5 cm - LVOT peak gradient 3.2 mmHg - LVOT mean gradient 1.8 mmHg - LEONIDES Vmax 0.7 m/sec - Name Value Normal Range TR Vmax 3.1 m/sec - TR peak gradient 38 mmHg - RAP 3 mmHg - RVSP 42 mmHg - IVC diameter 1.4 cm - Name Value Normal Range PV Vmax 0.8 m/sec - PV peak gradient 2.8 mmHg -
[2016-07-27] MEDS ORDERED: Saline NASAL SPRAY 0.65%* BTL BOTH NARES PRN (09:53)
[2016-07-27] MEDS: Polyethylene Glycol 3350* 17 GM PACKET PO SCH (10:01)
[2016-07-27] MEDS: Potassium Chlor TAB* 20 MEQ TAB.ER PO SCH ×2 (10:02→21:48)
[2016-07-27] MEDS: Docusate CAP* 100 MG PO SCH ×2 (10:02→21:48)
[2016-07-27] MEDS: Cetirizine* 10 MG TAB PO SCH (10:02)
[2016-07-27] MEDS: Furosemide TAB* 40 MG PO SCH (10:02)
[2016-07-27] MEDS: Senna TAB PO SCH ×2 (10:02→21:48)
[2016-07-27] MEDS: Baclofen TAB* 20 MG PO SCH ×2 (10:02→21:48)
[2016-07-27] MEDS: BuPROPion XL* 150 MG TAB.XL PO SCH (10:02)
[2016-07-27] MEDS ORDERED: ceFAZolin VIAL(*) 1 GM in NS 0.9% 50 ML* 50 ML IVPB SCH (12:00)
[2016-07-27] MEDS: Folic Acid TAB* 1 MG PO SCH (13:03)
[2016-07-27] MEDS ORDERED: Furosemide IV* 10 MG/ML VIAL (40 MG) IV SLOW PU ONE (13:55)
--- NOTE | 2016-07-27 14:02 | PN ---
Subjective Date of Service: 07/27/16 Interval History: This is a 60 yo female with MS, GERD, PVD who presented with acute SOB. Patient had increasing dyspnea over the last week or so. She was treated for a PNA with Levaquin without improvement. She noted LE edema and increased tightness in her pants with a non-productive cough. She was severely hypertensive when she reached the ER and diuressed with IV Lasix with nitro ointment placed for BP control. This am she reports persistent CP that is midsternal and still having some dyspnea. She had significant output yesterday that has since slowed. Still has a slight cough. Objective Active Medications: Acetaminophen (Tylenol Tab*) 650 mg PO Q4H PRN PRN Reason: FEVER/PAIN Hydrocodone Bitart/Acetaminophen ([place] 5-325 Tab*) 1 tab PO Q4H PRN PRN Reason: PAIN - UNRELIEVED Amlodipine Besylate (Norvasc Tab*) 10 mg PO DAILY [facility] Baclofen (Lioresal Tab*) 20 mg PO BID [facility] Last Admin: 07/27/16 10:02 Dose: 20 mg Bupropion HCl (Wellbutrin Xl *) 150 mg PO QAM [facility] PRN Reason: Protocol Last Admin: 07/27/16 10:02 Dose: 150 mg Cetirizine HCl (Zyrtec*) 10 mg PO DAILY [facility] Last Admin: 07/27/16 10:02 Dose: 10 mg Docusate Sodium (Colace Cap*) 100 mg PO BID [facility] Last Admin: 07/27/16 10:02 Dose: 100 mg Folic Acid (Folvite Tab*) 1 mg PO WEFR [facility] Folic Acid (Folvite Tab*) 1 mg PO SUTUTHSA [facility] Last Admin: 07/27/16 13:03 Dose: 1 mg Furosemide (Lasix Tab*) 40 mg PO DAILY [facility] Last Admin: 07/27/16 10:02 Dose: 40 mg Furosemide (Lasix Iv*) 40 mg IV SLOW PU ONCE ONE Stop: 07/27/16 13:56 Heparin Sodium (Porcine) (Heparin Vial(*)) 5,000 units SUBCUT Q8HR [facility] Last Admin: 07/27/16 13:03 Dose: 5,000 units Cefazolin Sodium 1 gm/ Sodium (Chloride) 50 mls @ 200 mls/hr IVPB Q8H [facility] Last Admin: 07/27/16 13:03 Dose: 200 mls/hr Lisinopril (Prinivil Tab*) 5 mg PO DAILY [facility] Mirtazapine (Remeron Tab*) 15 mg PO BEDTIME [facility] Last Admin: 07/26/16 22:11 Dose: 15 mg Ondansetron HCl (Zofran Inj*) 4 mg IV Q6H PRN PRN Reason: NAUSEA Polyethylene Glycol/Electrolytes (Miralax*) 17 gm PO DAILY [facility] Last Admin: 07/27/16 10:01 Dose: 17 gm Potassium Chloride (Klor Con Er Tab*) 20 meq PO BID [facility] Last Admin: 07/27/16 10:02 Dose: 20 meq Senna (Senokot Tab*) 2 tab PO BID [facility] Last Admin: 07/27/16 10:02 Dose: 2 tab Sodium Chloride (Sodium Chloride 0.65% Nasal [place]*) 1 spray BOTH NARES Q2H PRN PRN Reason: CONGESTION Tamsulosin HCl (Flomax Cap*) 0.4 mg PO BEDTIME [facility] Last Admin: 07/26/16 22:12 Dose: 0.4 mg Vital Signs: Temp Pulse Resp BP Pulse Ox 97.5 F 78 16 145/71 87 07/27/16 11:18 07/27/16 11:18 07/27/16 11:18 07/27/16 11:18 07/27/16 11:18 Oxygen Devices in Use Now: Simple Face Mask Appearance: Middle aged female that appears older than stated age. Accompanied by her son and daughter. In NAD Respiratory: Symmetrical Chest Expansion and Respiratory Effort, - - few rhonchi /crackles at lung bases Cardiovascular: NL Sounds; No Murmurs; No JVD, RRR Extremities: No Edema Skin: No Rash or Ulcers Neurological: Alert and Oriented x 3, - - contracted extremities Result Diagrams: 07/27/16 05:35 07/27/16 05:35 Microbiology and Other Data: Microbiology 07/26/16 15:20 Nasal Screen MRSA (PCR)(JAGUAR) - Final Nasal Mrsa Negative Diagnostic Imaging: Echo - LVEF 50-55%, nl RV, no sig valvular dz, mild-mod LVH CXR - moderate vascular congestion Assess/Plan/Problems-Billing Assessment: This is a 60 yo female with MS, restricted to motorized wheelchair who presented with c/o SOB. Admitted with suspected CHF exacerbation. - Patient Problems (1) CHF exacerbation Comment: More likely to be diastolic with LVH noted on echo and near normal LVEF Cont diuresis Start lisinopril/amlodipine for BP control (2) Bacteremia Comment: 02/24 blood culture bottles growing gram + cocci, neg for MSSA/MRSA Started cefazolin empirically ? source, perhaps contaminant UA was abnl, cx pending ? PNA Plan to repeat CXR tomorrow (3) HTN (hypertension) Comment: Improved control Start lisinopril/amlodipine (4) Multiple sclerosis (5) PVD (peripheral vascular disease) (6) GERD (gastroesophageal reflux disease) (7) Sacral ulcer (8) Full code status (9) DVT prophylaxis Status and Disposition: Inpatient. Anticipate dc in ~ 2 days
--- NOTE | 2016-07-27 14:51 | RAD ---
HISTORY: CHF COMPARISONS: July 26, 2016 VIEWS:1: Single frontal portable view of the chest at 2:30 PM. The patient is obliqued to the right FINDINGS: LINES AND TUBES: None. CARDIOMEDIASTINAL SILHOUETTE: The cardiomediastinal silhouette is obscured. PLEURA: There is a large left pleural effusion, increased from the previous examination. LUNG PARENCHYMA: There is confluent alveolar opacification of the left bending lower lung cobos ABDOMEN: The upper abdomen is clear. There is no subphrenic gas. BONES AND SOFT TISSUES: No bone or soft tissue abnormalities are noted. IMPRESSION: LARGE LEFT PLEURAL EFFUSION WITH LEFT LUNG ATELECTASIS VERSUS CONSOLIDATION.
[2016-07-27] MEDS: amLODIPine TAB* 5 MG PO SCH (15:02)
[2016-07-27] MEDS: Lisinopril TAB* 5 MG PO SCH (15:03)
--- NOTE | 2016-07-27 17:18 | PN ---
Hospitalist Progress Note Repeat CXR demonstrated white out of L lung, appears to be large effusion. Patient is tolerating well. Discussed thoracentesis with IR who requested US of the chest to confirm that it is effusion and not consolidation. US pending. Plan for thoracentesis tomorrow, hold Heparin
--- NOTE | 2016-07-27 18:10 | RAD ---
INDICATION: Evaluate for pleural effusion. COMPARISON: Correlation is made with a prior chest x-ray study of the same date. TECHNIQUE: Multiple real-time images of the chest were obtained on the left side FINDINGS: There is increased echogenicity within the left lung most consistent with constellation. There appears to be a trace left pleural effusion. IMPRESSION: LEFT LUNG CONSOLIDATION AND TRACE LEFT PLEURAL EFFUSION.
[2016-07-27] MEDS: Azithromycin IV(*) 250 MG in NS 0.9% 250 ML* 250 ML IVPB SCH (18:21)
[2016-07-27] MEDS ORDERED: cefTRIAXone VIAL(*) 1,000 MG in NS 0.9% 50 ML* 50 ML IVPB SCH (19:00)
[2016-07-27] MEDS: Ondansetron INJ* 2 MG/ML VIAL IV PRN (19:20)
[2016-07-27] MEDS: Mirtazapine TAB* 15 MG PO SCH (21:48)
[2016-07-27] MEDS: Tamsulosin CAP* 0.4 MG PO SCH (21:48)
[2016-07-28 06:08] LABS: C Reactive Protein 15.88 mg/L (< 5.00); Calcium 9.3 mg/dL (8.6-10.3); EGFR African American 84.6 (>60); EGFR Non-African American 65.8 (>60); Potassium 4.7 mmol/L (3.5-5.0)
--- NOTE | 2016-07-28 08:36 | RAD ---
HISTORY: New left lung consolidation COMPARISONS: November 07, 2009 TECHNIQUE: Multiple contiguous axial CT scans of the chest were obtained without intravenous contrast. Coronal and sagittal multiplanar reformations are also submitted for review. FINDINGS: The study is limited by the lack of intravenous contrast. This limits evaluation of the solid organs and vasculature. NECK AND THYROID: The lower neck and thyroid are unremarkable. CHEST WALL: There is no lower cervical, axillary, or supraclavicular lymphadenopathy by size criteria. HEART AND PERICARDIUM: Coronary and valvular cardiac calcifications are noted. AORTA AND PULMONARY VASCULATURE: The aorta and pulmonary vasculature are normal. MEDIASTINUM: There is no mediastinal lymphadenopathy by size criteria. The mediastinum is shifted to the left. ANGELA: There is no hilar lymphadenopathy by size criteria. AIRWAY AND ESOPHAGUS: The airway is unremarkable, without endobronchial filling defect. The esophagus is grossly normal. LUNG PARENCHYMA: There is atelectasis and consolidation of the left lower lobe and segments of the left upper lobe. There is segmental consolidation of the medial basal segment of the right lower lobe. PLEURA: There are small bilateral pleural effusions. There is elevation of the right hemidiaphragm UPPER ABDOMEN: The upper abdomen is unremarkable. BONES AND SOFT TISSUES: There is a scoliotic curvature of the spine. Degenerative changes are noted. OTHER: None. IMPRESSION: 1. MIXED ATELECTASIS AND CONSOLIDATION OF THE LEFT UPPER AND LOWER LOBES. 2. SEGMENTAL CONSOLIDATION OF THE RIGHT LUNG BASE. 3. SMALL BILATERAL PLEURAL EFFUSIONS. 4. ELEVATION OF THE RIGHT HEMIDIAPHRAGM
[2016-07-28] MEDS: Potassium Chlor TAB* 20 MEQ TAB.ER PO SCH ×2 (08:48→21:13)
[2016-07-28] MEDS: Polyethylene Glycol 3350* 17 GM PACKET PO SCH (08:48)
[2016-07-28] MEDS: Baclofen TAB* 20 MG PO SCH ×2 (08:48→21:13)
[2016-07-28] MEDS: Senna TAB PO SCH ×2 (08:48→21:13)
[2016-07-28] MEDS: Cetirizine* 10 MG TAB PO SCH (08:48)
[2016-07-28] MEDS: Lisinopril TAB* 5 MG PO SCH (08:48)
[2016-07-28] MEDS: BuPROPion XL* 150 MG TAB.XL PO SCH (08:48)
[2016-07-28] MEDS: Docusate CAP* 100 MG PO SCH ×2 (08:48→21:13)
[2016-07-28] MEDS: Furosemide TAB* 40 MG PO SCH (08:48)
[2016-07-28] MEDS: amLODIPine TAB* 5 MG PO SCH (08:49)
--- NOTE | 2016-07-28 10:57 | PN ---
Subjective Date of Service: 07/28/16 Interval History: Patient reports no change in her respiratory complaints. Still some CP and dyspnea, but not worse than yesterday. US from last night demonstrated consolidation rather than effusion. No abd pain, n/v. Objective Active Medications: Acetaminophen (Tylenol Tab*) 650 mg PO Q4H PRN PRN Reason: FEVER/PAIN Hydrocodone Bitart/Acetaminophen (Roy 5-325 Tab*) 1 tab PO Q4H PRN PRN Reason: PAIN - UNRELIEVED Amlodipine Besylate (Norvasc Tab*) [address] [facility] Last Admin: 07/28/16 08:49 Dose: 10 mg Baclofen (Lioresal Tab*) [address] [facility] Last Admin: 07/28/16 08:48 Dose: 20 mg Bupropion HCl (Wellbutrin Xl *) [address] [facility] PRN Reason: Protocol Last Admin: 07/28/16 08:48 Dose: 150 mg Cetirizine HCl (Zyrtec*) [address] [facility] Last Admin: 07/28/16 08:48 Dose: 10 mg Docusate Sodium (Colace Cap*) [address] [facility] Last Admin: 07/28/16 08:48 Dose: 100 mg Folic Acid (Folvite Tab*) [address] [facility] Folic Acid (Folvite Tab*) [address] [facility] Last Admin: 07/27/16 13:03 Dose: 1 mg Furosemide (Lasix Tab*) [address] [facility] Last Admin: 07/28/16 08:48 Dose: 40 mg Heparin Sodium (Porcine) (Heparin Vial(*)) 5,[address] [facility] Ceftriaxone Sodium 1,000 mg/ (Sodium Chloride) 50 mls @ 200 mls/hr IVPB Q24H [facility] Last Admin: 07/27/16 21:44 Dose: 200 mls/hr Azithromycin 250 mg/ Sodium (Chloride) 250 mls @ 250 mls/hr IVPB Q24H [facility] Last Admin: 07/27/16 18:21 Dose: 250 mls/hr Lisinopril (Prinivil Tab*) [address] [facility] Last Admin: 07/28/16 08:48 Dose: 5 mg Mirtazapine (Remeron Tab*) [address] [facility] Last Admin: 07/27/16 21:48 Dose: 15 mg Ondansetron HCl (Zofran Inj*) 4 mg IV Q6H PRN PRN Reason: NAUSEA Last Admin: 07/27/16 19:20 Dose: 4 mg Polyethylene Glycol/Electrolytes (Miralax*) [address] [facility] Last Admin: 07/28/16 08:48 Dose: 17 gm Potassium Chloride (Klor Con Er Tab*) [address] [facility] Last Admin: 07/28/16 08:48 Dose: 20 meq Senna (Senokot Tab*) [address] [facility] Last Admin: 07/28/16 08:48 Dose: 2 tab Sodium Chloride (Sodium Chloride 0.65% Nasal [place]*) 1 spray BOTH NARES Q2H PRN PRN Reason: CONGESTION Tamsulosin HCl (Flomax Cap*) 0.[address] [facility] Last Admin: 07/27/16 21:48 Dose: 0.4 mg Vital Signs: Temp Pulse Resp BP Pulse Ox 98.1 F 77 18 104/47 94 07/28/16 04:16 07/28/16 07:49 07/28/16 04:16 07/28/16 07:49 07/28/16 07:49 Oxygen Devices in Use Now: Nasal Cannula Appearance: Middle aged female, sleeping upon entering the room. Respiratory: Symmetrical Chest Expansion and Respiratory Effort, - - poor cough effort, nl WOB, little lung sounds in LLL, faint crackles, few crackles but better air exchange than the L side Extremities: No Edema Neurological: Alert and Oriented x 3 Result Diagrams: 07/27/16 05:35 07/28/16 05:25 Microbiology and Other Data: Microbiology 07/26/16 15:20 Nasal Screen MRSA (PCR)(JAGUAR) - Final Nasal Mrsa Negative Microbiology 07/26/16 11:22 Aerobic Blood Culture - Preliminary Blood Venous No Growth Day 1 Anaerobic Blood Culture - Preliminary Staphylococcus Epidermidis Blood Culture - Final Blood MRSA/MSSA (PCR) - Final Mrsa Negative S.aureus Negative 07/26/16 11:10 Aerobic Blood Culture - Preliminary Blood Venous Staphylococcus Epidermidis Anaerobic Blood Culture - Preliminary No Growth Day 1 Blood MRSA/MSSA (PCR) - Final Mrsa Negative S.aureus Negative 07/26/16 13:59 Urine Culture - Final Urine Esbl Escherichia Coli Normal [facility]: Echo - LVEF 50-55%, nl RV, no sig valvular dz, mild-mod LVH CXR - moderate vascular congestion Chest US - L sided consolidation, slight effusion CT Chest - Severe L lung consolidation with small bilateral effusions Assess/Plan/Problems-Billing Assessment: This is a 60 yo female with MS, restricted to motorized wheelchair who presented with c/o SOB. Admitted with suspected CHF exacerbation. - Patient Problems (1) PNA (pneumonia) Comment: Dense consolidation in the L lung Limited cough mechanism related to her MS Ordered flutter valve, may be a good candidate for chest percussion Requested pulmonology consultation Treating with Ceftriaxone/Azithromycin (2) CHF exacerbation Comment: More likely to be diastolic with LVH noted on echo and near normal LVEF Complicated by PNA Cont diuresis now with oral Lasix Start lisinopril/amlodipine for BP control (3) Bacteremia Comment: No signs of sepsis 2/4 blood culture bottles now growing Staph epi Evidence of dense PNA on chest CT Treating for PNA with Ceftriaxone and azithro Repeating blood cultures today (4) HTN (hypertension) Comment: Improved control Cont lisinopril/amlodipine (5) Multiple sclerosis Comment: Functional quadriplegia, limited to motorized wheelchair (6) PVD (peripheral vascular disease) (7) GERD (gastroesophageal reflux disease) (8) Sacral ulcer (9) Full code status (10) DVT prophylaxis Status and Disposition: Inpatient. Unsure of discharge timing at this time
[2016-07-28] MEDS: Folic Acid TAB* 1 MG PO SCH (13:30)
[2016-07-28] MEDS ORDERED: Zosyn per Pharmacy* NOTE FOLLOW UP SCH (14:00)
[2016-07-28] MEDS: Albuterol/Ipratropium NEB.SOL* Albuterol 2.5 MG/Ipratropium 0.5 MG 3 ML INH SCH ×2 (14:47→19:31)
--- NOTE | 2016-07-28 14:47 | CONS ---
PULMONARY CONSULTATION REPORT: DATE OF CONSULTATION: 07/28/16 CONSULTATION REQUESTED BY: FARA Wagoner. HISTORY OF PRESENT ILLNESS: The patient is a 60-year-old unfortunate female with a history of multiple sclerosis, kyphoscoliosis, bedbound, who resides in a facility, brought into emergency room for evaluation of progressively worsening shortness of breath to a point that she became hypoxemic while in the facility. The patient was recently diagnosed with pneumonia and was being treated with outpatient antibiotics. The patient was found to be hypoxemic and cyanotic by [facility] staff when she was being moved in her bed, and was brought into the ER. The patient denied having fevers, headaches, chills. She has weak cough due to multiple sclerosis and weakness of her muscles. The patient reports inability to expectorate secretions. The patient was noted to be hypoxemic in the emergency room and was started on O2 supplementation. She is requiring O2 supplementation at 5 L to maintain her O2 sats on admission, currently needing 3 L. She is being treated for possible aspiration pneumonia with antibiotics. The patient also has a history of CHF. I have personally reviewed chest x-ray and CT scan of the chest and chest ultrasound. The patient 's CT chest revealed evidence of dense consolidation in the left lower lobe and part of left upper lobe. The patient also noted to have consolidation medially in the right lung base. The patient also with small bilateral pleural effusions and elevated right hemidiaphragm. I have also personally reviewed her current CT chest in comparison with her CT that was performed in 2009. The patient did have evidence of aspiration at that time and was treated for aspiration pneumonia. The patient denied episodes of choking or cough prior to the episode. The patient was eating at the time of my evaluation and she did not choke during that time. The patient might have had pooling of secretions and mucus plugging as a possibility for the dense consolidation in the left lung. The patient is currently being treated with Rocephin and Zithromax. She is also on diuretics for possible fluid overload. Her O2 saturations are improving slowly. She did not have a white count on admission or a left shift. Her blood gas analysis on admission did show evidence of respiratory acidosis. She is hemodynamically stable at this time. PAST MEDICAL HISTORY: 1. Multiple sclerosis with permanent disability and weakness of upper extremities and lower extremities. 2. Peripheral vascular disease. 3. Sacral ulcer from being bed bound. 4. GERD. PAST SURGICAL HISTORY: Skin graft in the right upper extremity, right lower extremity stenting for the peripheral vascular disease, tubal ligation. MEDICATIONS: 1. Zanaflex. 2. Oxycodone. 3. Spiriva. 4. Flomax. 5. Zocor. 6. MiraLAX. 7. Multivitamin. 8. Methotrexate. 9. Folic acid. 10. Colace. 11. Baclofen. 12. Bupropion. 13. Calcium. 14. Tylenol. ALLERGIES: KETOCONAZOLE and LATEX. FAMILY HISTORY: Mother has lupus. SOCIAL HISTORY: Former smoker and alcoholic. She lives at [facility] currently. REVIEW OF SYSTEMS: All 14 systems were reviewed and as per HPI. PHYSICAL EXAMINATION: The patient lying in bed, in no apparent distress. Vital Signs: Temperature 98.1, heart rate 84 beats per minute, respiratory rate 18 per minute, O2 sat 94% on 3 L, blood pressure 95/46. HEENT: Pupils are equal and reactive to light. Mucous membranes are moist. Neck: Supple. No JVD. Lungs: Crackles bilaterally. Good air entry bilaterally. Diminished breath sounds at bases. Cardiovascular: S1, S2 present, regular. No murmurs or rubs. Abdomen: Obese. Bowel sounds are present. Extremities: Normal range of motion, 2+ edema bilaterally. Neurologic: Alert, awake, oriented x3. No focal deficits. The patient with significant deformities of upper extremities and muscle wasting. Skin: Stage 3 ulcer in the sacrum. DIAGNOSTIC STUDIES/LAB DATA: WBC count 5.2, hemoglobin 11, hematocrit 34, platelet count 279. ABG showed pH of 7.34, pCO2 of 60 and pO2 of 60, with O2 sat 93% on 5 L. Sodium 139, potassium 4.7, chloride 99, bicarb 36, BUN 22, creatinine of 0.8. CRP 15.88. Troponins within normal limits. Chest x-ray and CT scan as described above in HPI. IMPRESSION AND RECOMMENDATIONS: 60-year-old female with multiple sclerosis, bedbound, weak cough reflex due to neuromuscular weakness, admitted with worsening shortness of breath, with CT scan evidence of left lower lung collapse likely secondary to mucus plug or aspiration pneumonia. Given her condition, would recommend conservative management. Would recommend chest physical therapy, bronchodilators, Mucomyst. She would benefit from chest percussion therapy, aspiration precautions. If she does not improve with conservative measures, will schedule her for a bronchoscopy on Tuesday for airway clearance. Thank you for allowing me to participate in care of your patient. Will follow up with you. [id number]/[facility] #: [id number] JOSE LUIS
[2016-07-28] MEDS: Azithromycin IV(*) 250 MG in NS 0.9% 250 ML* 250 ML IVPB SCH (17:42)
[2016-07-28] MEDS: Heparin VIAL(*) 5000 UNITS/ML VIAL (FIVE THOUSAND) SUBCUT SCH ×2 (17:50→21:19)
[2016-07-28] MEDS: Acetylcysteine INHALATION SOL* 200 MG/ML NEB.SOLN 10 ML INH PRN (19:31)
[2016-07-28] MEDS: Tamsulosin CAP* 0.4 MG PO SCH (21:13)
[2016-07-28] MEDS: Mirtazapine TAB* 15 MG PO SCH (21:13)
[2016-07-29] MEDS: Albuterol/Ipratropium NEB.SOL* Albuterol 2.5 MG/Ipratropium 0.5 MG 3 ML INH SCH ×5 (01:00→23:37)
[2016-07-29] MEDS: Heparin VIAL(*) 5000 UNITS/ML VIAL (FIVE THOUSAND) SUBCUT SCH ×3 (06:39→22:14)
[2016-07-29] MEDS: Acetylcysteine INHALATION SOL* 200 MG/ML NEB.SOLN 10 ML INH PRN (07:51)
[2016-07-29] MEDS: Polyethylene Glycol 3350* 17 GM PACKET PO SCH (09:19)
[2016-07-29] MEDS: Baclofen TAB* 20 MG PO SCH ×2 (09:20→22:14)
[2016-07-29] MEDS: BuPROPion XL* 150 MG TAB.XL PO SCH (09:20)
[2016-07-29] MEDS: Lisinopril TAB* 5 MG PO SCH (09:20)
[2016-07-29] MEDS: Senna TAB PO SCH ×2 (09:20→22:03)
[2016-07-29] MEDS: Potassium Chlor TAB* 20 MEQ TAB.ER PO SCH ×2 (09:21→22:03)
[2016-07-29] MEDS: Docusate CAP* 100 MG PO SCH ×2 (09:21→22:03)
[2016-07-29] MEDS: amLODIPine TAB* 5 MG PO SCH (09:21)
[2016-07-29] MEDS: Furosemide TAB* 40 MG PO SCH (09:21)
[2016-07-29] MEDS: Cetirizine* 10 MG TAB PO SCH (09:21)
[2016-07-29 09:35] LABS: Hematocrit 37 % (35-47); Hemoglobin 11.5 g/dl (12.0-16.0); Mean Corpuscular HGB Conc 31 g/dl (31-36); Mean Corpuscular Hemoglobin 28 pg (27-31); Mean Corpuscular Volume 90 fL (80-97); Mean Platelet Volume 8 um3 (7.4-10.4); Red Blood Count 4.08 10^6/ul (4.0-5.4); Red Cell Distribution Width 15 % (10.5-15); White Blood Count 9.5 10^3/ul (3.5-10.8)
[2016-07-29 09:38] LABS: PCO2 Arterial 69 mmHg (35-45)
--- NOTE | 2016-07-29 09:59 | PN ---
Subjective Date of Service: 07/29/16 Interval History: Patient had struggled with a mucus plug yesterday evening, she was placed on an oxymask at 15L which was maintained overnight and moved closer to the nurses station. Patient reports that she is feeling a little confused this morning. She is having some trouble with time orientation. Denies CP or SOB. No abd pain, n/v. Objective Active Medications: Acetaminophen (Tylenol Tab*) 650 mg PO Q4H PRN PRN Reason: FEVER/PAIN Hydrocodone Bitart/Acetaminophen ([place] 5-325 Tab*) 1 tab PO Q4H PRN PRN Reason: PAIN - UNRELIEVED Acetylcysteine (Mucomyst Inhalation [place]*) 400 mg INH [id number] AWAKE [facility] Albuterol/Ipratropium (Duoneb (Albuterol 2.5 Mg/Ipratropium 0.5 Mg)) 1 neb INH [id number] AWAKE [facility] Last Admin: 07/29/16 07:51 Dose: 1 neb Amlodipine Besylate (Norvasc Tab*) 5 mg PO DAILY [facility] Last Admin: 07/29/16 09:21 Dose: 5 mg Baclofen (Lioresal Tab*) 20 mg PO BID [facility] Last Admin: 07/29/16 09:20 Dose: 20 mg Bupropion HCl (Wellbutrin Xl *) 150 mg PO QAM [facility] PRN Reason: Protocol Last Admin: 07/29/16 09:20 Dose: 150 mg Cetirizine HCl (Zyrtec*) 10 mg PO DAILY [facility] Last Admin: 07/29/16 09:21 Dose: 10 mg Docusate Sodium (Colace Cap*) 100 mg PO BID [facility] Last Admin: 07/29/16 09:21 Dose: 100 mg Folic Acid (Folvite Tab*) 1 mg PO WEFR [facility] Last Admin: 07/28/16 13:30 Dose: 1 mg Folic Acid (Folvite Tab*) 1 mg PO SUTUTHSA [facility] Last Admin: 07/27/16 13:03 Dose: 1 mg Furosemide (Lasix Tab*) 20 mg PO DAILY [facility] Last Admin: 07/29/16 09:21 Dose: 20 mg Heparin Sodium (Porcine) (Heparin Vial(*)) 5,000 units SUBCUT Q8HR [facility] Last Admin: 07/29/16 06:39 Dose: 5,000 units Azithromycin 250 mg/ Sodium (Chloride) 250 mls @ 250 mls/hr IVPB Q24H [facility] Last Admin: 07/28/16 17:42 Dose: 250 mls/hr Lisinopril (Prinivil Tab*) 5 mg PO DAILY [facility] Last Admin: 07/29/16 09:20 Dose: 5 mg Mirtazapine (Remeron Tab*) 15 mg PO BEDTIME [facility] Last Admin: 07/28/16 21:13 Dose: 15 mg Ondansetron HCl (Zofran Inj*) 4 mg IV Q6H PRN PRN Reason: NAUSEA Last Admin: 07/27/16 19:20 Dose: 4 mg Pharmacy Consult (Zosyn Per Pharmacy*) 1 note FOLLOW UP .ZOSYN PER PHARMACY [facility] Polyethylene Glycol/Electrolytes (Miralax*) 17 gm PO DAILY [facility] Last Admin: 07/29/16 09:19 Dose: 17 gm Potassium Chloride (Klor Con Er Tab*) 20 meq PO BID [facility] Last Admin: 07/29/16 09:21 Dose: 20 meq Senna (Senokot Tab*) 2 tab PO BID [facility] Last Admin: 07/29/16 09:20 Dose: 2 tab Sodium Chloride (Sodium Chloride 0.65% Nasal [place]*) 1 spray BOTH NARES Q2H PRN PRN Reason: CONGESTION Tamsulosin HCl (Flomax Cap*) 0.4 mg PO BEDTIME [facility] Last Admin: 07/28/16 21:13 Dose: 0.4 mg Vital Signs: Temp Pulse Resp BP Pulse Ox 98.6 F 81 22 134/64 95 07/29/16 04:46 07/29/16 08:04 07/29/16 08:04 07/29/16 08:04 07/29/16 08:04 Oxygen Devices in Use Now: Nasal Cannula Appearance: Middle aged female who appears fatigued but alert and conversant. NAD Respiratory: Symmetrical Chest Expansion and Respiratory Effort, - - diminished lung sounds in L lung field but no crackles, R lung cobos sound clear Cardiovascular: RRR Extremities: No Edema Neurological: - - alert, appropriate in conversation, some confusion with orientation to time Result Diagrams: 07/29/16 09:18 07/28/16 05:25 Additional Lab and Data: Laboratory Tests 07/29/16 09:30 ABG pH 7.34 L ABG pCO2 69 H ABG pO2 104 H ABG HCO3 32.1 H Microbiology and Other Data: Microbiology 07/26/16 15:20 Nasal Screen MRSA (PCR)(JAGUAR) - Final Nasal Mrsa Negative Microbiology 07/26/16 11:22 Aerobic Blood Culture - Preliminary Blood Venous No Growth Day 1 Anaerobic Blood Culture - Preliminary Staphylococcus Epidermidis Blood Culture - Final Blood MRSA/MSSA (PCR) - Final Mrsa Negative S.aureus Negative 07/26/16 11:10 Aerobic Blood Culture - Preliminary Blood Venous Staphylococcus Epidermidis Anaerobic Blood Culture - Preliminary No Growth Day 1 Blood MRSA/MSSA (PCR) - Final Mrsa Negative S.aureus Negative 07/26/16 13:59 Urine Culture - Final Urine Esbl Escherichia Coli Normal [facility]: Echo - LVEF 50-55%, nl RV, no sig valvular dz, mild-mod LVH CXR - moderate vascular congestion Chest US - L sided consolidation, slight effusion CT Chest - Severe L lung consolidation with small bilateral effusions Assess/Plan/Problems-Billing Assessment: This is a 60 yo female with MS, restricted to motorized wheelchair who presented with c/o SOB. Admitted with suspected CHF exacerbation now with what appears to be an aspiration PNA - Patient Problems (1) PNA (pneumonia) Comment: Dense consolidation in the L lung Limited cough mechanism related to her MS Appreciate pulmonology consult Started chest percussion with scheduled DuoNebs an Mucomyst Acute event with mucus plugging last night which as since resolved Improved breath sounds on exam today Confused this am with noted hypercarbia on ABG Will titrate down her supp O2 and repeat ABG this afternoon, may require transfer to ICU for BiPAP therapy Repeat CXR pending for this afternoon, possible bronchoscopy for tomorrow with Dr Conroy if no improvement (2) CHF exacerbation Comment: More likely to be diastolic with LVH noted on echo and near normal LVEF Complicated by PNA Cont diuresis now with oral Lasix Cont lisinopril/amlodipine for BP control (3) Bacteremia Comment: No signs of sepsis 2/4 blood culture bottles growing Staph epi Evidence of dense PNA on chest CT Treating for PNA with Zosyn and azithro Repeated blood cultures yesterday, pending at this time (4) HTN (hypertension) Comment: Improved control Cont lisinopril/amlodipine (5) Multiple sclerosis Comment: Functionally quadriplegic, limited to motorized wheelchair (6) PVD (peripheral vascular disease) (7) GERD (gastroesophageal reflux disease) (8) Sacral ulcer (9) Full code status (10) DVT prophylaxis Comment: SQ heparin Status and Disposition: Inpatient. Unsure of discharge timing at this time
[2016-07-29 10:20] LABS: BUN/Creatinine Ratio 29.4 (8-20); Calcium 9.1 mg/dL (8.6-10.3); EGFR African American 113.9 (>60); EGFR Non-African American 88.6 (>60); Potassium 4.6 mmol/L (3.5-5.0)
[2016-07-29] MEDS ORDERED: Acetylcysteine INHALATION SOL* 200 MG/ML NEB.SOLN 10 ML INH SCH (12:00)
[2016-07-29 13:39] LABS: FIO2 7
[2016-07-29 13:43] LABS: PCO2 Arterial 67 mmHg (35-45)
[2016-07-29] MEDS ORDERED: Furosemide IV* 10 MG/ML VIAL (40 MG) IV SLOW PU ONE (14:05)
[2016-07-29] MEDS ORDERED: Morphine INJ* 4 MG/ML 1 ML SYRINGE IV ONE (14:15)
--- NOTE | 2016-07-29 14:20 | PN ---
Hospitalist Progress Note Patient developed hypoxia and increased confusion this afternoon. Initial O2 sat measured in the 70s while on 7L via NC. Unable to get saturation about 80% with mask in place. DuoNeb administered without significant improvement. Patient remained alert and conversant with some tachypnea. Repeat CXR obtained that demonstrated improved aeration of the previously atelectatic L lung but what appears to be a new R sided effusion. Patient tranferred to ICU for Vapotherm. Orders given for Lasix and morphine. Mildly hypotensive so nitro avoided. Supervising physician, Dr Silvio Sharpe, notified of patient's status change and requested wine maker consult from Dr Mckeon. Patient's son and daughter notified of her status change and they will be coming to the hospital shortly. She is tentatively a DNI, but will confirm after family discussion following arrival.
--- NOTE | 2016-07-29 14:35 | RAD ---
HISTORY: Follow-up left lung consolidation. COMPARISONS: July 27, 2016 VIEWS:1: Single frontal portable view of the chest at 1:54 PM. The patient is obliqued to the left FINDINGS: LINES AND TUBES: None. CARDIOMEDIASTINAL SILHOUETTE: The cardiomediastinal silhouette is normal for portable technique. PLEURA: There are bilateral small pleural effusions. There is elevation of the right hemidiaphragm LUNG PARENCHYMA: There is improved aeration of left lung. There is persistent alveolar opacification of the lung bases bilaterally, somewhat progressed on the right.. ABDOMEN: The upper abdomen is clear. There is no subphrenic gas. BONES AND SOFT TISSUES: No bone or soft tissue abnormalities are noted. IMPRESSION: 1. IMPROVED AERATION OF THE LEFT LUNG. 2. BIBASILAR CONSOLIDATION, PROGRESSED ON THE RIGHT. 3. SMALL BILATERAL PLEURAL EFFUSIONS
--- NOTE | 2016-07-29 15:40 | PN ---
Progress Note - Progress Note Note: CRITICAL CARE MEDICINE DATE: 07/29/16 TIME: 1500 REFERRING PROVIDER: Annemarie REASON/CHIEF COMPLAINT: acute hypoxic resp failure HISTORY OF PRESENT ILLNESS: 60 F with multiple chronic co-morbidites presenting to ICU with acute hypoxic res failure with RLL atelectasis and aspiration - acute on chronic events. Rescued with HFO2 and metaneb. Daughter present. REVIEW OF SYSTEMS: Reviewed with pt. feels the sob and weakness but no fever, chills. PAST MEDICAL HISTORY: As per HPI. MS, scoliosis, PVD. MEDICATIONS: Reviewed. ALLERGIES: Reviewed. SOCIAL HISTORY: Reviewed. bedbound. daugter proxy FAMILY HISTORY: Noncontributory at present. PHYSICAL EXAM: appears older then age. disabled. Vital Signs: Reviewed. Neurologic: communicating HEENT: anciteric. Cardiovascular: mild inc HR, distant Respiratory: dec bs bl with audible tracheal and upper rhonchi Abdomen: soft Extremities: deconditioned LABS: Reviewed. IMAGING: Reviewed. CT, cxrs reviewed. MEDICATIONS: Reviewed. ASSESSMENT: 60 F with multiple chronic co-morbidites with acute hypoxic resp failure with RLL atelectasis and aspiration. PLAN: rescuing with HFO2 and metaneb. Explained the dynamics to the pt and her daughter and they expressed understanding. HFO2 for rescue and then wean O2. Wean flow after. [id number] while awake today. Advance to flutter and avoid aspirations tomorrow. Fluid status ok and not main ailment. ventilation is, and is now improved. Would try to treat ESBL uti more aggressive with meropenum course given her overall weakness and acute state (orders adjusted). Supportive and preventative care as ordered. Care per hospitalists. Disposition: ICU today, likely floor tomorrow Code Status: d/w pt and her daughter. DNR/DNI, trial niv if provider agrees (as is the present). molst reflective. Critical Care Time: 35min Stuart Mckeon DO
[2016-07-29] MEDS: Folic Acid TAB* 1 MG PO SCH (16:37)
[2016-07-29] MEDS: Meropenem 1 GM PREMIX(*) 1 GM/50 ML BAG IV SCH (16:51)
[2016-07-29 18:08] LABS: FIO2 100
[2016-07-29 18:11] LABS: PCO2 Arterial 64 mmHg (35-45)
[2016-07-29] MEDS: Acetylcysteine INHALATION SOL* 200 MG/ML NEB.SOLN 10 ML INH SCH ×2 (19:39→23:38)
[2016-07-29] MEDS: Tamsulosin CAP* 0.4 MG PO SCH (22:03)
[2016-07-29] MEDS: Mirtazapine TAB* 15 MG PO SCH (22:03)
[2016-07-30] MEDS: Meropenem 1 GM PREMIX(*) 1 GM/50 ML BAG IV SCH ×4 (00:38→23:31)
[2016-07-30] MEDS: Acetylcysteine INHALATION SOL* 200 MG/ML NEB.SOLN 10 ML INH SCH ×6 (02:53→23:14)
[2016-07-30] MEDS: Albuterol/Ipratropium NEB.SOL* Albuterol 2.5 MG/Ipratropium 0.5 MG 3 ML INH SCH ×6 (02:54→23:15)
[2016-07-30] MEDS: Heparin VIAL(*) 5000 UNITS/ML VIAL (FIVE THOUSAND) SUBCUT SCH ×3 (05:49→20:56)
[2016-07-30 06:23] LABS: Hematocrit 32 % (35-47); Hemoglobin 10.1 g/dl (12.0-16.0); Mean Corpuscular HGB Conc 31 g/dl (31-36); Mean Corpuscular Hemoglobin 28 pg (27-31); Mean Corpuscular Volume 90 fL (80-97); Mean Platelet Volume 8 um3 (7.4-10.4); Red Cell Distribution Width 15 % (10.5-15); White Blood Count 6.8 10^3/ul (3.5-10.8)
[2016-07-30 06:37] LABS: BUN/Creatinine Ratio 27.5 (8-20); Calcium 8.9 mg/dL (8.6-10.3); EGFR African American 94.4 (>60); EGFR Non-African American 73.4 (>60); Potassium 4.7 mmol/L (3.5-5.0)
--- NOTE | 2016-07-30 07:58 | RAD ---
HISTORY: CHF COMPARISONS: July 29, 2016 VIEWS:1: Single frontal portable view of the chest at 7:20 AM FINDINGS: LINES AND TUBES: None. CARDIOMEDIASTINAL SILHOUETTE: The cardiomediastinal silhouette is normal for portable technique. PLEURA: The costophrenic angles are sharp. No pleural abnormalities are noted. LUNG PARENCHYMA: The lung volumes are low. There is improved aeration of the lung bases bilaterally with minimal linear opacification lung bases bilaterally. ABDOMEN: The upper abdomen is clear. There is no subphrenic gas. BONES AND SOFT TISSUES: No bone or soft tissue abnormalities are noted. IMPRESSION: 1. LOW LUNG VOLUMES. 2. IMPROVED AERATION OF THE LUNG BASES BILATERALLY WITH MINIMAL LINEAR ATELECTASIS OF THE LUNG BASES BILATERALLY.
--- NOTE | 2016-07-30 08:27 | PN ---
Subjective Date of Service: 07/30/16 Interval History: Patient transferred to ICU yesterday afternoon. Treated with Vapotherm and Metanebs. Some confusion yesterday evening that seems to have resolved this am. Patient denies CP or SOB. Swallow eval pending for today. Objective Active Medications: Acetaminophen (Tylenol Tab*) 650 mg PO Q4H PRN PRN Reason: FEVER/PAIN Last Admin: 07/29/16 18:08 Dose: 650 mg Hydrocodone Bitart/Acetaminophen ([place] 5-325 Tab*) 1 tab PO Q4H PRN PRN Reason: PAIN - UNRELIEVED Acetylcysteine (Mucomyst Inhalation [place]*) 400 mg INH [id number] AWAKE [facility] Last Admin: 07/30/16 07:48 Dose: 400 mg Albuterol/Ipratropium (Duoneb (Albuterol 2.5 Mg/Ipratropium 0.5 Mg)) 1 neb INH [id number] AWAKE [facility] Last Admin: 07/30/16 07:48 Dose: 1 neb Amlodipine Besylate (Norvasc Tab*) 5 mg PO DAILY [facility] Last Admin: 07/29/16 09:21 Dose: 5 mg Baclofen (Lioresal Tab*) 20 mg PO BID [facility] Last Admin: 07/29/16 22:14 Dose: 20 mg Bupropion HCl (Wellbutrin Xl *) 150 mg PO QAM [facility] PRN Reason: Protocol Last Admin: 07/29/16 09:20 Dose: 150 mg Cetirizine HCl (Zyrtec*) 10 mg PO DAILY [facility] Last Admin: 07/29/16 09:21 Dose: 10 mg Docusate Sodium (Colace Cap*) 100 mg PO BID [facility] Last Admin: 07/29/16 22:03 Dose: 100 mg Folic Acid (Folvite Tab*) 1 mg PO WEFR [facility] Last Admin: 07/28/16 13:30 Dose: 1 mg Folic Acid (Folvite Tab*) 1 mg PO SUTUTHSA [facility] Last Admin: 07/29/16 16:37 Dose: Not Given Furosemide (Lasix Tab*) 20 mg PO DAILY [facility] Last Admin: 07/29/16 09:21 Dose: 20 mg Heparin Sodium (Porcine) (Heparin Vial(*)) 5,000 units SUBCUT Q8HR [facility] Last Admin: 07/30/16 05:49 Dose: 5,000 units Meropenem (Merrem 1 Gm Premix(*)) 1 gm in 50 mls @ 100 mls/hr IV Q8H [facility] Stop: 08/05/16 14:59 Last Admin: 07/30/16 07:39 Dose: 100 mls/hr Lisinopril (Prinivil Tab*) 5 mg PO DAILY [facility] Last Admin: 07/29/16 09:20 Dose: 5 mg Mirtazapine (Remeron Tab*) 15 mg PO BEDTIME [facility] Last Admin: 07/29/16 22:03 Dose: 15 mg Ondansetron HCl (Zofran Inj*) 4 mg IV Q6H PRN PRN Reason: NAUSEA Last Admin: 07/27/16 19:20 Dose: 4 mg Polyethylene Glycol/Electrolytes (Miralax*) 17 gm PO DAILY [facility] Last Admin: 07/29/16 09:19 Dose: 17 gm Potassium Chloride (Klor Con Er Tab*) 20 meq PO BID [facility] Last Admin: 07/29/16 22:03 Dose: 20 meq Senna (Senokot Tab*) 2 tab PO BID [facility] Last Admin: 07/29/16 22:03 Dose: 2 tab Sodium Chloride (Sodium Chloride 0.65% Nasal [place]*) 1 spray BOTH NARES Q2H PRN PRN Reason: CONGESTION Tamsulosin HCl (Flomax Cap*) 0.4 mg PO BEDTIME [facility] Last Admin: 07/29/16 22:03 Dose: 0.4 mg Vital Signs: Temp Pulse Resp BP Pulse Ox 97.3 F 72 22 114/59 100 07/30/16 07:41 07/30/16 07:50 07/30/16 07:50 07/30/16 07:04 07/30/16 07:50 Oxygen Devices in Use Now: High Flow Nasal Cannula Appearance: Alert, interactive, well appearing in NAD Respiratory: Symmetrical Chest Expansion and Respiratory Effort, - - improved aeration, few rhonchi with crackles R lung base, overall improved Cardiovascular: RRR Skin: No Rash or Ulcers Neurological: Alert and Oriented x 3 Result Diagrams: 07/30/16 05:45 07/30/16 05:45 Additional Lab and Data: Laboratory Tests 07/29/16 09:30 ABG pH 7.34 L ABG pCO2 69 H ABG pO2 104 H ABG HCO3 32.1 H Microbiology and Other Data: Microbiology 07/26/16 15:20 Nasal Screen MRSA (PCR)(JAGUAR) - Final Nasal Mrsa Negative Microbiology 07/26/16 11:22 Aerobic Blood Culture - Preliminary Blood Venous No Growth Day 1 Anaerobic Blood Culture - Preliminary Staphylococcus Epidermidis Blood Culture - Final Blood MRSA/MSSA (PCR) - Final Mrsa Negative S.aureus Negative 07/26/16 11:10 Aerobic Blood Culture - Preliminary Blood Venous Staphylococcus Epidermidis Anaerobic Blood Culture - Preliminary No Growth Day 1 Blood MRSA/MSSA (PCR) - Final Mrsa Negative S.aureus Negative 07/26/16 13:59 Urine Culture - Final Urine Esbl Escherichia Coli Normal [facility]: Echo - LVEF 50-55%, nl RV, no sig valvular dz, mild-mod LVH CXR - moderate vascular congestion Chest US - L sided consolidation, slight effusion CT Chest - Severe L lung consolidation with small bilateral effusions CXR 07/29 - L sided consolidation resolved, new R consolidation with bilateral effusions CXR 07/30 - Improved aeration bilaterally, near complete resolution of R sided consolidation Assess/Plan/Problems-Billing Assessment: This is a 60 yo female with MS, restricted to motorized wheelchair who presented with c/o SOB. Admitted with suspected CHF exacerbation now with what appears to be an aspiration PNA - Patient Problems (1) PNA (pneumonia) Comment: Dense consolidation in the L lung with mucus plugging, now resolved with R sided consolidation that evolved yesterday which appears mostly resolved on repeat CXR today Limited cough mechanism related to her MS Appreciate pulmonology and blueprint machine operator consult Now improving with Vapotherm, metanebs with DuoNeb/mucomyst Plan to cont metanebs, titrate down Vapotherm Swallow eval pending, maintain aspiration precautions Cont Meropenem (2) CHF exacerbation Comment: More likely to be diastolic with LVH noted on echo and near normal LVEF Complicated by PNA Cont diuresis now with oral Lasix Cont lisinopril/amlodipine for BP control (3) UTI (urinary tract infection) Comment: 50-75K ESBL positive EColi Unsure how much this is contributing to acute picture Treating with Meropenem to cover respiratory and urinary pathogens (4) Bacteremia Comment: No signs of sepsis 2/4 blood culture bottles grew Staph epi, ESBL Ecoli growing from urine Repeat blood cultures negative at 24 hours ?contaminant (5) HTN (hypertension) Comment: Improved control Cont lisinopril/amlodipine (6) Multiple sclerosis Comment: Functionally quadriplegic, limited to motorized wheelchair (7) PVD (peripheral vascular disease) (8) GERD (gastroesophageal reflux disease) (9) Sacral ulcer (10) Full code status (11) DVT prophylaxis Comment: SQ heparin Status and Disposition: Inpatient. Cont ICU level care, possible transfer back to medical floor tomorrow
[2016-07-30] MEDS: Furosemide TAB* 40 MG PO SCH (09:38)
[2016-07-30] MEDS: Cetirizine* 10 MG TAB PO SCH (09:38)
[2016-07-30] MEDS: Senna TAB PO SCH ×2 (09:38→20:56)
[2016-07-30] MEDS: amLODIPine TAB* 5 MG PO SCH (09:38)
[2016-07-30] MEDS: BuPROPion XL* 150 MG TAB.XL PO SCH (09:38)
[2016-07-30] MEDS: Lisinopril TAB* 5 MG PO SCH (09:38)
[2016-07-30] MEDS: Polyethylene Glycol 3350* 17 GM PACKET PO SCH (09:38)
[2016-07-30] MEDS: Potassium Chlor TAB* 20 MEQ TAB.ER PO SCH ×2 (09:39→20:56)
[2016-07-30] MEDS: Baclofen TAB* 20 MG PO SCH ×2 (09:40→20:56)
[2016-07-30] MEDS: Docusate CAP* 100 MG PO SCH ×2 (09:40→20:55)
--- NOTE | 2016-07-30 10:46 | PN ---
Progress Note - Progress Note Note: CRITICAL CARE MEDICINE DATE: 07/30/16 TIME: 900 SUBJECTIVE: Pt seen and examined. feels better. PHYSICAL EXAM: Vital Signs: Reviewed. Neurologic: communicating HEENT: anciteric. Cardiovascular: Reg Respiratory: dec bs bl with audibl upper rhonchi but clears better with stronger cough Abdomen: soft Extremities: chronic deconditioned LABS: Reviewed. IMAGING: Reviewed. MEDICATIONS: Reviewed. ASSESSMENT: 60 F with multiple chronic co-morbidites with acute hypoxic resp failure with RLL atelectasis and aspiration. PLAN: better post rescue. wean off HFO2, but continued metaneb today until able to transition securely to flutter use. mobilize. advance care. may need ICU today and then push care forward from there later today or tomorrow oou. Supportive and preventative care as ordered. Care per hospitalists. Disposition: ICU will sign off. Code Status: DNR/DNI Critical Care Time: 20min Stuart Mckeon DO
--- NOTE | 2016-07-30 15:14 | PN ---
Progress Note - Progress Note Note: Pulm consult f/u note 07/30/16 Pt seen and examined at bedside. Pt was transferred to ICU yesterday for worsening resp failure and AMS. Seems better this am, communicative, O2 requirements improving Active Medications Generic Name Dose Route Start Last Admin Trade Name Freq PRN Reason Stop Dose Admin Acetaminophen 650 mg 07/26/16 13:43 07/29/16 18:08 Tylenol Tab* PO 650 mg Q4H PRN Administration FEVER/PAIN Hydrocodone Bitart/Acetaminophen 1 tab 07/26/16 13:56 [place] 5-325 Tab* PO Q4H PRN PAIN - UNRELIEVED Acetylcysteine 400 mg 07/29/16 19:00 07/30/16 11:42 Mucomyst Inhalation Hawa* INH 400 mg [id number] AWAKE [facility] Administration Albuterol/Ipratropium 1 neb 07/29/16 19:00 07/30/16 11:41 Duoneb (Albuterol 2.5 Mg/Ipratropium 0.5 Mg) INH 1 neb [id number] AWAKE [facility] Administration Amlodipine Besylate 5 mg 07/29/16 09:00 07/30/16 09:38 Norvasc Tab* PO 5 mg DAILY [facility] Administration Baclofen 20 mg 07/26/16 21:00 07/30/16 09:40 Lioresal Tab* PO 20 mg BID [facility] Administration Bupropion HCl 150 mg 07/27/16 09:00 07/30/16 09:38 Wellbutrin Xl * PO 150 mg QAM [facility] Administration Protocol Cetirizine HCl 10 mg 07/27/16 09:00 07/30/16 09:38 Zyrtec* PO 10 mg DAILY [facility] Administration Docusate Sodium 100 mg 07/26/16 21:29 07/30/16 09:40 Colace Cap* PO 100 mg BID [facility] Administration Folic Acid 1 mg 07/28/16 13:56 07/28/16 13:30 Folvite Tab* PO 1 mg WEFR [facility] Administration Folic Acid 1 mg 07/27/16 13:56 07/29/16 16:37 Folvite Tab* PO Not Given SUTUTHSA [facility] Furosemide 20 mg 07/29/16 09:00 07/30/16 09:38 Lasix Tab* PO 20 mg DAILY [facility] Administration Heparin Sodium (Porcine) 5,000 units 07/28/16 18:00 07/30/16 13:51 Heparin Vial(*) SUBCUT 5,000 units Q8HR [facility] Administration Meropenem 1 gm in 50 mls @ 100 mls/hr 07/29/16 15:00 07/30/16 07:39 Merrem 1 Gm Premix(*) IV 08/05/16 14:59 100 mls/hr Q8H [facility] Administration Lisinopril 5 mg 07/27/16 14:00 07/30/16 09:38 Prinivil Tab* PO 5 mg DAILY [facility] Administration Mirtazapine 15 mg 07/26/16 21:00 07/29/16 22:03 Remeron Tab* PO 15 mg BEDTIME [facility] Administration Ondansetron HCl 4 mg 07/26/16 13:43 07/27/16 19:20 Zofran Inj* IV 4 mg Q6H PRN Administration NAUSEA Polyethylene Glycol/Electrolytes 17 gm 07/27/16 09:00 07/30/16 09:38 Miralax* PO 17 gm DAILY [facility] Administration Potassium Chloride 20 meq 07/26/16 21:00 07/30/16 09:39 Klor Con Er Tab* PO 20 meq BID [facility] Administration Senna 2 tab 07/26/16 21:00 07/30/16 09:38 Senokot Tab* PO 2 tab BID [facility] Administration Sodium Chloride 1 spray 07/27/16 09:53 Sodium Chloride 0.65% Nasal [place]* BOTH NARES Q2H PRN CONGESTION Tamsulosin HCl 0.4 mg 07/26/16 21:00 07/29/16 22:03 Flomax Cap* PO 0.4 mg BEDTIME [facility] Administration Vital Signs Temp Pulse Resp BP Pulse Ox 97.3 F 83 25 112/68 100 07/30/16 11:31 07/30/16 14:00 07/30/16 14:00 07/30/16 14:00 07/30/16 14:00 Gen: Alert, interactive in NAD HEENT: Mucus membranes moist, neck supple Respiratory: Symmetrical Chest Expansion and Respiratory Effort,few rhonchi with crackles R lung base Cardiovascular: RRR, S1, S2+ Abd: Soft, BS+ Skin: No Rash or Ulcers Neurological: Alert and Oriented x 3 Laboratory Results - last 24 hr 07/29/16 07/30/16 07/30/16 18:02 05:45 05:45 WBC 6.8 RBC 3.60 L Hgb 10.1 L Hct 32 L MCV 90 MCH 28 MCHC 31 RDW 15 Plt Count 241 MPV 8 Neut % (Auto) 76.4 Lymph % (Auto) 12.3 L [place] % (Auto) 9.0 Eos % (Auto) 1.6 Baso % (Auto) 0.7 Absolute Neuts (auto) 5.2 Absolute Lymphs (auto) 0.8 L Absolute Monos (auto) 0.6 Absolute Eos (auto) 0.1 Absolute Basos (auto) 0.1 Absolute Nucleated RBC 0.01 Nucleated RBC % 0.1 Patient Temperature Not Reportable ABG pH 7.38 ABG pCO2 64 H ABG pO2 201 H ABG HCO3 33.3 H ABG O2 Saturation 99.2 H ABG Base Excess 10.7 H Respiration Rate Not Reportable O2 Delivery Device vapotherm Ventilator Type Not Reportable Vent Mode Not Reportable FiO2 100 Inspiratory Time Not Reportable PEEP Not Reportable Pressure Support Not Reportable Pressure Control Not Reportable EPAP Not Reportable IPAP Not Reportable BiPAP Not Reportable Sodium 133 Potassium 4.7 Chloride 95 L Carbon Dioxide 34 H Anion Gap 4 BUN 22 Creatinine 0.80 Est GFR ( Amer) 94.4 Est GFR (Non-Af Amer) 73.4 BUN/Creatinine Ratio 27.5 H Glucose 92 Calcium 8.9 Additional Lab and Data: Laboratory Tests 07/29/16 09:30 ABG pH 7.34 L ABG pCO2 69 H ABG pO2 104 H ABG HCO3 32.1 H Microbiology and Other Data: Microbiology 07/26/16 15:20 Nasal Screen MRSA (PCR)(JAGUAR) - Final Nasal Mrsa Negative Microbiology 07/26/16 11:22 Aerobic Blood Culture - Preliminary Blood Venous No Growth Day 1 Anaerobic Blood Culture - Preliminary Staphylococcus Epidermidis Blood Culture - Final Blood MRSA/MSSA (PCR) - Final Mrsa Negative S.aureus Negative 07/26/16 11:10 Aerobic Blood Culture - Preliminary Blood Venous Staphylococcus Epidermidis Anaerobic Blood Culture - Preliminary No Growth Day 1 Blood MRSA/MSSA (PCR) - Final Mrsa Negative S.aureus Negative 07/26/16 13:59 Urine Culture - Final Urine Esbl Escherichia Coli Normal [facility]: CT Chest - Left lower lobe consolidation with small bilateral effusions CXR 6/9 - Improved aeration bilaterally, near complete resolution of R sided consolidation I/R: 60 yo female with MS, wheelchair bound with hypoxia, SOB CT chest with evidence of aspiration PNA Pt has difficulty expectorating secretions due to underlying muscular weakness due to MS Poor cough reflex related to her MS Improved with metanebs and high flow c/w DuoNeb/mucomyst Plan to cont metanebs, titrate down Vapotherm today Swallow eval pending, maintain aspiration precautions Cont Meropenem Pt will need cough assist upon d/c D/w Heath Mercado NP
[2016-07-30] MEDS: Folic Acid TAB* 1 MG PO SCH (15:25)
[2016-07-30] MEDS: Tamsulosin CAP* 0.4 MG PO SCH (20:55)
[2016-07-30] MEDS: Mirtazapine TAB* 15 MG PO SCH (20:56)
[2016-07-31] MEDS: Acetylcysteine INHALATION SOL* 200 MG/ML NEB.SOLN 10 ML INH SCH ×4 (03:26→17:44)
[2016-07-31] MEDS: Albuterol/Ipratropium NEB.SOL* Albuterol 2.5 MG/Ipratropium 0.5 MG 3 ML INH SCH ×4 (03:26→17:44)
[2016-07-31 06:12] LABS: Hematocrit 34 % (35-47); Hemoglobin 10.9 g/dl (12.0-16.0); Mean Corpuscular HGB Conc 32 g/dl (31-36); Mean Corpuscular Hemoglobin 29 pg (27-31); Mean Corpuscular Volume 90 fL (80-97); Mean Platelet Volume 8 um3 (7.4-10.4); Red Blood Count 3.78 10^6/ul (4.0-5.4); Red Cell Distribution Width 15 % (10.5-15); White Blood Count 6.8 10^3/ul (3.5-10.8)
[2016-07-31] MEDS: Meropenem 1 GM PREMIX(*) 1 GM/50 ML BAG IV SCH ×3 (06:22→23:26)
[2016-07-31] MEDS: Heparin VIAL(*) 5000 UNITS/ML VIAL (FIVE THOUSAND) SUBCUT SCH ×3 (06:22→21:05)
[2016-07-31 06:26] LABS: BUN/Creatinine Ratio 33.8 (8-20); C Reactive Protein 47.54 mg/L (< 5.00); Calcium 9.1 mg/dL (8.6-10.3); EGFR Non-African American 93.3 (>60); Potassium 5.1 mmol/L (3.5-5.0)
--- NOTE | 2016-07-31 08:03 | RAD ---
HISTORY: CHF, reevaluation COMPARISONS: July 30, 2016 VIEWS:1: Single frontal portable view of the chest at 6:40 AM. The patient is obliqued to the left FINDINGS: LINES AND TUBES: None. CARDIOMEDIASTINAL SILHOUETTE: The cardiomediastinal silhouette is normal for portable technique. PLEURA: The costophrenic angles are sharp. No pleural abnormalities are noted. LUNG PARENCHYMA: The lung volumes are low. There is patchy alveolar opacification of the left lung base. ABDOMEN: The upper abdomen is clear. There is no subphrenic gas. BONES AND SOFT TISSUES: No bone or soft tissue abnormalities are noted. IMPRESSION: LOW LUNG VOLUMES WITH PATCHY ATELECTASIS VERSUS CONSOLIDATION OF LEFT LUNG BASE
--- NOTE | 2016-07-31 08:33 | PN ---
Subjective Date of Service: 07/31/16 Interval History: Patient seen and examined at bedside. She does not endorse any complaints, denying SOB and CP, nods when asked if her breathing feels better. No acute nursing concerns at this time. Patient has been weaned off Vapotherm. Family History: Unchanged from Admission Social History: Unchanged from Admission Past Medical History: Unchanged from Admission Objective Active Medications: Acetaminophen (Tylenol Tab*) 650 mg PO Q4H PRN PRN Reason: FEVER/PAIN Last Admin: 07/29/16 18:08 Dose: 650 mg Hydrocodone Bitart/Acetaminophen ([place] 5-325 Tab*) 1 tab PO Q4H PRN PRN Reason: PAIN - UNRELIEVED Acetylcysteine (Mucomyst Inhalation Hawa*) 400 mg INH [id number] AWAKE [facility] Last Admin: 07/31/16 03:26 Dose: 400 mg Albuterol/Ipratropium (Duoneb (Albuterol 2.5 Mg/Ipratropium 0.5 Mg)) 1 neb INH [id number] AWAKE [facility] Last Admin: 07/31/16 03:26 Dose: 1 neb Amlodipine Besylate (Norvasc Tab*) 5 mg PO DAILY [facility] Last Admin: 07/30/16 09:38 Dose: 5 mg Baclofen (Lioresal Tab*) 20 mg PO BID [facility] Last Admin: 07/30/16 20:56 Dose: 20 mg Bupropion HCl (Wellbutrin Xl *) 150 mg PO QAM [facility] PRN Reason: Protocol Last Admin: 07/30/16 09:38 Dose: 150 mg Cetirizine HCl (Zyrtec*) 10 mg PO DAILY [facility] Last Admin: 07/30/16 09:38 Dose: 10 mg Docusate Sodium (Colace Cap*) 100 mg PO BID [facility] Last Admin: 07/30/16 20:55 Dose: 100 mg Folic Acid (Folvite Tab*) 1 mg PO WEFR [facility] Last Admin: 07/30/16 15:25 Dose: 1 mg Folic Acid (Folvite Tab*) 1 mg PO SUTUTHSA [facility] Last Admin: 07/29/16 16:37 Dose: Not Given Furosemide (Lasix Tab*) 20 mg PO DAILY [facility] Last Admin: 07/30/16 09:38 Dose: 20 mg Heparin Sodium (Porcine) (Heparin Vial(*)) 5,000 units SUBCUT Q8HR [facility] Last Admin: 07/31/16 06:22 Dose: 5,000 units Meropenem (Merrem 1 Gm Premix(*)) 1 gm in 50 mls @ 100 mls/hr IV Q8H [facility] Stop: 08/05/16 14:59 Last Admin: 07/31/16 06:22 Dose: 100 mls/hr Lisinopril (Prinivil Tab*) 5 mg PO DAILY [facility] Last Admin: 07/30/16 09:38 Dose: 5 mg Mirtazapine (Remeron Tab*) 15 mg PO BEDTIME [facility] Last Admin: 07/30/16 20:56 Dose: 15 mg Ondansetron HCl (Zofran Inj*) 4 mg IV Q6H PRN PRN Reason: NAUSEA Last Admin: 07/27/16 19:20 Dose: 4 mg Polyethylene Glycol/Electrolytes (Miralax*) 17 gm PO DAILY [facility] Last Admin: 07/30/16 09:38 Dose: 17 gm Senna (Senokot Tab*) 2 tab PO BID [facility] Last Admin: 07/30/16 20:56 Dose: 2 tab Sodium Chloride (Sodium Chloride 0.65% Nasal [place]*) 1 spray BOTH NARES Q2H PRN PRN Reason: CONGESTION Tamsulosin HCl (Flomax Cap*) 0.4 mg PO BEDTIME [facility] Last Admin: 07/30/16 20:55 Dose: 0.4 mg Vital Signs 07/30/16 07/30/16 07/30/16 09:00 10:00 10:07 Temperature Pulse Rate 86 89 80 Respiratory 19 16 23 Rate Blood Pressure 132/67 73/23 119/66 (mmHg) O2 Sat by Pulse 100 100 100 Oximetry 07/30/16 07/30/16 07/30/16 11:00 11:31 11:40 Temperature 97.3 F Pulse Rate 84 80 Respiratory 19 17 Rate Blood Pressure 114/60 (mmHg) O2 Sat by Pulse 98 96 Oximetry 07/30/16 07/30/16 07/30/16 12:00 13:00 14:00 Temperature Pulse Rate 79 82 83 Respiratory 24 21 25 Rate Blood Pressure 129/69 129/61 112/68 (mmHg) O2 Sat by Pulse 100 100 100 Oximetry 07/30/16 07/30/16 07/30/16 15:00 15:50 16:00 Temperature Pulse Rate 86 80 79 Respiratory 27 20 21 Rate Blood Pressure 102/52 113/54 (mmHg) O2 Sat by Pulse 99 92 99 Oximetry 07/30/16 07/30/16 07/30/16 16:22 17:00 17:52 Temperature 96.9 F Pulse Rate 83 Respiratory 25 Rate Blood Pressure 112/57 (mmHg) O2 Sat by Pulse 96 92 Oximetry 07/30/16 07/30/16 07/30/16 18:00 19:00 19:36 Temperature 97.2 F Pulse Rate 88 85 Respiratory 26 27 Rate Blood Pressure 115/61 93/50 (mmHg) O2 Sat by Pulse 98 100 Oximetry 07/30/16 07/30/16 07/30/16 19:52 20:00 20:44 Temperature Pulse Rate 81 80 Respiratory 24 27 28 Rate Blood Pressure (mmHg) O2 Sat by Pulse 100 99 Oximetry 07/30/16 07/30/16 07/30/16 21:00 22:00 22:02 Temperature Pulse Rate 80 79 77 Respiratory 24 24 24 Rate Blood Pressure 113/59 84/50 87/48 (mmHg) O2 Sat by Pulse 95 92 93 Oximetry 07/30/16 07/30/16 07/31/16 22:21 23:00 00:00 Temperature Pulse Rate 82 77 76 Respiratory 25 23 24 Rate Blood Pressure 98/44 (mmHg) O2 Sat by Pulse 95 99 99 Oximetry 07/31/16 07/31/16 07/31/16 00:01 00:05 00:18 Temperature 97.0 F Pulse Rate 76 Respiratory 24 Rate Blood Pressure 105/54 (mmHg) O2 Sat by Pulse 99 99 Oximetry 07/31/16 07/31/16 07/31/16 00:52 01:00 02:00 Temperature Pulse Rate 84 83 Respiratory 25 23 23 Rate Blood Pressure 122/57 114/58 (mmHg) O2 Sat by Pulse 100 94 Oximetry 07/31/16 07/31/16 07/31/16 03:00 03:46 04:00 Temperature Pulse Rate 75 71 74 Respiratory 20 20 18 Rate Blood Pressure 113/45 109/53 (mmHg) O2 Sat by Pulse 97 100 100 Oximetry 07/31/16 07/31/16 07/31/16 04:13 04:47 05:00 Temperature 97.5 F Pulse Rate 84 Respiratory 25 23 Rate Blood Pressure 129/57 (mmHg) O2 Sat by Pulse 100 Oximetry 07/31/16 07/31/16 07/31/16 05:57 06:00 07:00 Temperature Pulse Rate 80 71 Respiratory 23 22 18 Rate Blood Pressure 108/58 113/51 (mmHg) O2 Sat by Pulse 91 96 Oximetry Oxygen Devices in Use Now: Nasal Cannula Appearance: Female patient, lying in bed, NAD Neck: NL Appearance and Movements; NL JVP Respiratory: Symmetrical Chest Expansion and Respiratory Effort, - - coarse lung sounds, scattered rhonchi Cardiovascular: RRR Extremities: - - contractures to bilateral hands and bilateral foot drop Neurological: Alert and Oriented x 3 Lines/Tubes/Other Access: Clean, Dry and Intact Peripheral IV Nutrition: Taking PO's Result Diagrams: 07/31/16 05:55 07/31/16 05:55 Additional Lab and Data: Laboratory Tests 07/29/16 09:30 ABG pH 7.34 L ABG pCO2 69 H ABG pO2 104 H ABG HCO3 32.1 H Microbiology and Other Data: Microbiology 07/26/16 15:20 Nasal Screen MRSA (PCR)(JAGUAR) - Final Nasal Mrsa Negative Microbiology 07/26/16 11:22 Aerobic Blood Culture - Preliminary Blood Venous No Growth Day 1 Anaerobic Blood Culture - Preliminary Staphylococcus Epidermidis Blood Culture - Final Blood MRSA/MSSA (PCR) - Final Mrsa Negative S.aureus Negative 07/26/16 11:10 Aerobic Blood Culture - Preliminary Blood Venous Staphylococcus Epidermidis Anaerobic Blood Culture - Preliminary No Growth Day 1 Blood MRSA/MSSA (PCR) - Final Mrsa Negative S.aureus Negative 07/26/16 13:59 Urine Culture - Final Urine Esbl Escherichia Coli Normal [facility]: Echo - LVEF 50-55%, nl RV, no sig valvular dz, mild-mod LVH CXR - moderate vascular congestion Chest US - L sided consolidation, slight effusion CT Chest - Severe L lung consolidation with small bilateral effusions CXR 07/29 - L sided consolidation resolved, new R consolidation with bilateral effusions CXR 07/30 - Improved aeration bilaterally, near complete resolution of R sided consolidation Assess/Plan/Problems-Billing Assessment: This is a 60 yo female with MS, restricted to motorized wheelchair who presented with c/o SOB. Admitted with suspected CHF exacerbation now with what appears to be an aspiration PNA - Patient Problems (1) PNA (pneumonia) Code(s): J18.9 - PNEUMONIA, UNSPECIFIED ORGANISM Comment: Dense consolidation in the L lung with mucus plugging, still seen on today's XR. Patchy atelectasis noted. Limited cough mechanism related to her MS Appreciate pulmonology and piecer consults Improved, weaned from Vapotherm Patient passed swallow eval, maintain aspiration precautions Cont Meropenem Transfer to med/tele floor (2) CHF exacerbation Code(s): I50.9 - HEART FAILURE, UNSPECIFIED Comment: More likely to be diastolic with LVH noted on echo and near normal LVEF Complicated by PNA Cont diuresis now with oral Lasix Cont lisinopril/amlodipine for BP control (3) UTI (urinary tract infection) Comment: 50-75K ESBL positive EColi Unsure how much this is contributing to acute picture Treating with Meropenem to cover respiratory and urinary pathogens (4) Bacteremia Code(s): R78.81 - BACTEREMIA Comment: No signs of sepsis 2/4 blood culture bottles grew Staph epi, ESBL Ecoli growing from urine Repeat blood cultures negative at 48 hours ?contaminant (5) HTN (hypertension) Code(s): I10 - ESSENTIAL (PRIMARY) HYPERTENSION Comment: Improved control Cont lisinopril/amlodipine (6) Multiple sclerosis Code(s): G35 - MULTIPLE SCLEROSIS Comment: Functionally quadriplegic, limited to motorized wheelchair (7) PVD (peripheral vascular disease) Code(s): I73.9 - PERIPHERAL VASCULAR DISEASE, UNSPECIFIED Comment: Continue outpatient follow-up (8) GERD (gastroesophageal reflux disease) Code(s): K21.9 - GASTRO-ESOPHAGEAL REFLUX DISEASE WITHOUT ESOPHAGITIS Comment : Stable Not on medication (9) Sacral ulcer Code(s): L98.429 - NON-PRESSURE CHRONIC ULCER OF BACK WITH UNSPECIFIED SEVERITY (10) DVT prophylaxis Code(s): PNK8629 - Comment: SQ heparin (11) Full code status Code(s): Z78.9 - OTHER SPECIFIED HEALTH STATUS Status and Disposition: Inpatient. Transfer to medical floor.
[2016-07-31] MEDS: Polyethylene Glycol 3350* 17 GM PACKET PO SCH (09:32)
[2016-07-31] MEDS: Baclofen TAB* 20 MG PO SCH ×2 (09:33→23:26)
[2016-07-31] MEDS: Docusate CAP* 100 MG PO SCH ×2 (09:33→21:05)
[2016-07-31] MEDS: amLODIPine TAB* 5 MG PO SCH (09:33)
[2016-07-31] MEDS: BuPROPion XL* 150 MG TAB.XL PO SCH (09:33)
[2016-07-31] MEDS: Furosemide TAB* 40 MG PO SCH (09:34)
[2016-07-31] MEDS: Senna TAB PO SCH ×2 (09:34→21:05)
[2016-07-31] MEDS: Lisinopril TAB* 5 MG PO SCH (09:34)
[2016-07-31] MEDS: Cetirizine* 10 MG TAB PO SCH (09:34)
[2016-07-31] MEDS: Folic Acid TAB* 1 MG PO SCH (14:56)
[2016-07-31] MEDS: Tamsulosin CAP* 0.4 MG PO SCH (21:05)
[2016-07-31] MEDS: Mirtazapine TAB* 15 MG PO SCH (21:05)
[2016-08-01] MEDS: Heparin VIAL(*) 5000 UNITS/ML VIAL (FIVE THOUSAND) SUBCUT SCH ×3 (05:34→21:25)
[2016-08-01] MEDS: Meropenem 1 GM PREMIX(*) 1 GM/50 ML BAG IV SCH ×3 (06:06→23:02)
[2016-08-01 07:17] LABS: BUN/Creatinine Ratio 38.6 (8-20); Calcium 9.1 mg/dL (8.6-10.3); EGFR African American 139.6 (>60); EGFR Non-African American 108.6 (>60); Potassium 4.6 mmol/L (3.5-5.0)
[2016-08-01] MEDS: Tiotropium CAP.INH* CAP.INH/18 MCG INH SCH (07:46)
[2016-08-01] MEDS ORDERED: Spiriva Inhaler DEVICE* 1 EACH DEVICE ONE (09:00)
[2016-08-01] MEDS: Polyethylene Glycol 3350* 17 GM PACKET PO SCH (10:27)
[2016-08-01] MEDS: amLODIPine TAB* 5 MG PO SCH (10:28)
[2016-08-01] MEDS: Baclofen TAB* 20 MG PO SCH ×2 (10:28→21:25)
[2016-08-01] MEDS: BuPROPion XL* 150 MG TAB.XL PO SCH (10:28)
[2016-08-01] MEDS: Cetirizine* 10 MG TAB PO SCH (10:28)
[2016-08-01] MEDS: Docusate CAP* 100 MG PO SCH ×2 (10:28→19:52)
[2016-08-01] MEDS: Furosemide TAB* 40 MG PO SCH (10:29)
[2016-08-01] MEDS: Folic Acid TAB* 1 MG PO SCH ×2 (10:29→12:47)
[2016-08-01] MEDS: Senna TAB PO SCH ×2 (10:29→19:52)
[2016-08-01] MEDS: Lisinopril TAB* 5 MG PO SCH (10:29)
--- NOTE | 2016-08-01 10:43 | PN ---
Progress Note - Progress Note Note: Pulm consult f/u note 08/01/16 Pt seen and examined at bedside. Pt improved signficantly, FiO2 requirements improved Active Medications Generic Name Dose Route Start Last Admin Trade Name Freq PRN Reason Stop Dose Admin Acetaminophen 650 mg 07/26/16 13:43 07/29/16 18:08 Tylenol Tab* PO 650 mg Q4H PRN Administration FEVER/PAIN Hydrocodone Bitart/Acetaminophen 1 tab 07/26/16 13:56 [place] 5-325 Tab* PO Q4H PRN PAIN - UNRELIEVED Amlodipine Besylate 5 mg 07/29/16 09:00 08/01/16 10:28 Norvasc Tab* PO 5 mg DAILY YANNICK Administration Baclofen 20 mg 07/26/16 21:00 08/01/16 10:28 Lioresal Tab* PO 20 mg BID YANNICK Administration Bupropion HCl 150 mg 07/27/16 09:00 08/01/16 10:28 Wellbutrin Xl * PO 150 mg QAM YANNICK Administration Protocol Cetirizine HCl 10 mg 07/27/16 09:00 08/01/16 10:28 Zyrtec* PO 10 mg DAILY YANNICK Administration Docusate Sodium 100 mg 07/26/16 21:29 08/01/16 10:28 Colace Cap* PO 100 mg BID YANNICK Administration Folic Acid 1 mg 07/28/16 13:56 07/30/16 15:25 Folvite Tab* PO 1 mg WEFR YANNICK Administration Folic Acid 1 mg 07/27/16 13:56 08/01/16 10:29 Folvite Tab* PO 1 mg SUTUTHSA YANNICK Administration Furosemide 20 mg 07/29/16 09:00 08/01/16 10:29 Lasix Tab* PO 20 mg DAILY YANNICK Administration Heparin Sodium (Porcine) 5,000 units 07/28/16 18:00 08/01/16 05:34 Heparin Vial(*) SUBCUT 5,000 units Q8HR YANNICK Administration Meropenem 1 gm in 50 mls @ 100 mls/hr 07/29/16 15:00 08/01/16 06:06 Merrem 1 Gm Premix(*) IV 08/05/16 14:59 100 mls/hr Q8H YANNICK Administration Lisinopril 5 mg 07/27/16 14:00 08/01/16 10:29 Prinivil Tab* PO 5 mg DAILY YANNICK Administration Mirtazapine 15 mg 07/26/16 21:00 07/31/16 21:05 Remeron Tab* PO 15 mg BEDTIME YANNICK Administration Ondansetron HCl 4 mg 07/26/16 13:43 07/27/16 19:20 Zofran Inj* IV 4 mg Q6H PRN Administration NAUSEA Polyethylene Glycol/Electrolytes 17 gm 07/27/16 09:00 08/01/16 10:27 Miralax* PO 17 gm DAILY YANNICK Administration Senna 2 tab 07/26/16 21:00 08/01/16 10:29 Senokot Tab* PO 2 tab BID YANNICK Administration Sodium Chloride 1 spray 07/27/16 09:53 Sodium Chloride 0.65% Nasal [place]* BOTH NARES Q2H PRN CONGESTION Tamsulosin HCl 0.4 mg 07/26/16 21:00 07/31/16 21:05 Flomax Cap* PO 0.4 mg BEDTIME YANNICK Administration Tiotropium [place] 1 cap 08/01/16 09:00 08/01/16 07:46 Spiriva Cap.Inh* INH 1 cap DAILY YANNICK Administration Vital Signs Temp Pulse Resp BP Pulse Ox 98.2 F 19 87 111/56 96 08/01/16 04:50 08/01/16 07:49 08/01/16 07:49 08/01/16 04:50 08/01/16 07:49 Gen: Alert, interactive in NAD HEENT: Mucus membranes moist, neck supple Respiratory: Symmetrical Chest Expansion and Respiratory Effort,few rhonchi with crackles R lung base Cardiovascular: RRR, S1, S2+ Abd: Soft, BS+ Skin: No Rash or Ulcers Neurological: Alert and Oriented x 3 Laboratory Last Values WBC 6.8 10^3/ul (3.5-10.8) 07/31/16 05:55 RBC 3.78 10^6/ul (4.0-5.4) L 07/31/16 05:55 Hgb 10.9 g/dl (12.0-16.0) L 07/31/16 05:55 Hct 34 % (35-47) L 07/31/16 05:55 MCV 90 fL (80-97) 07/31/16 05:55 MCH 29 pg (27-31) 07/31/16 05:55 MCHC 32 g/dl (31-36) 07/31/16 05:55 RDW 15 % (10.5-15) 07/31/16 05:55 Plt Count 242 10^3/ul (150-450) 07/31/16 05:55 MPV 8 um3 (7.4-10.4) 07/31/16 05:55 Neut % (Auto) 79.8 % (38-83) 07/31/16 05:55 Lymph % (Auto) 9.1 % (25-47) L 07/31/16 05:55 [place] % (Auto) 8.3 % (1-9) 07/31/16 05:55 Eos % (Auto) 2.2 % (0-6) 07/31/16 05:55 Baso % (Auto) 0.6 % (0-2) 07/31/16 05:55 Absolute Neuts (auto) 5.4 10^3/ul (1.5-7.7) 07/31/16 05:55 Absolute Lymphs (auto) 0.6 10^3/ul (1.0-4.8) L 07/31/16 05:55 Absolute Monos (auto) 0.6 10^3/ul (0-0.8) 07/31/16 05:55 Absolute Eos (auto) 0.2 10^3/ul (0-0.6) 07/31/16 05:55 Absolute Basos (auto) 0 10^3/ul (0-0.2) 07/31/16 05:55 Absolute Nucleated RBC 0.01 10^3/ul 07/31/16 05:55 Nucleated RBC % 0.1 07/31/16 05:55 INR (Anticoag Therapy) 0.94 (0.89-1.11) 07/27/16 05:35 D-Dimer, Quantitative < 200 ng/mL (Less Than 230) 07/26/16 11:10 Patient Temperature Not Reportable 07/29/16 18:02 ABG pH 7.38 (7.35-7.45) 07/29/16 18:02 ABG pCO2 64 mmHg (35-45) H 07/29/16 18:02 ABG pO2 201 mmHg (80-100) H 07/29/16 18:02 ABG HCO3 33.3 mmol/L (19-31) H 07/29/16 18:02 ABG O2 Saturation 99.2 % (95-98) H 07/29/16 18:02 ABG Base Excess 10.7 (-2.0-2.0) H 07/29/16 18:02 Respiration Rate Not Reportable 07/29/16 18:02 O2 Delivery Device vapotherm 07/29/16 18:02 Ventilator Type Not Reportable 07/29/16 18:02 Vent Mode Not Reportable 07/29/16 18:02 FiO2 100 07/29/16 18:02 Inspiratory Time Not Reportable 07/29/16 18:02 PEEP Not Reportable 07/29/16 18:02 Pressure Support Not Reportable 07/29/16 18:02 Pressure Control Not Reportable 07/29/16 18:02 EPAP Not Reportable 07/29/16 18:02 IPAP Not Reportable 07/29/16 18:02 BiPAP Not Reportable 07/29/16 18:02 Sodium 133 mmol/L (133-145) 08/01/16 06:45 Potassium 4.6 mmol/L (3.5-5.0) 08/01/16 06:45 Chloride 95 mmol/L (101-111) L 08/01/16 06:45 Carbon Dioxide 33 mmol/L (22-32) H 08/01/16 06:45 Anion Gap 5 mmol/L (2-11) 08/01/16 06:45 BUN 22 mg/dL (6-24) 08/01/16 06:45 Creatinine 0.57 mg/dL (0.51-0.95) 08/01/16 06:45 Est GFR ( Amer) 139.6 (>60) 08/01/16 06:45 Est GFR (Non-Af Amer) 108.6 (>60) 08/01/16 06:45 BUN/Creatinine Ratio 38.6 (8-20) H 08/01/16 06:45 Glucose 95 mg/dL (70-100) 08/01/16 06:45 Lactic Acid 0.6 mmol/L (0.5-2.0) 07/26/16 11:10 Calcium 9.1 mg/dL (8.6-10.3) 08/01/16 06:45 Total Bilirubin 0.40 mg/dL (0.2-1.0) 07/26/16 11:10 AST 16 U/L (13-39) 07/26/16 11:10 ALT 11 U/L (7-52) 07/26/16 11:10 Alkaline Phosphatase 149 U/L (34-104) H 07/26/16 11:10 CK-MB (CK-2) 1.6 ng/mL (0.6-6.3) 07/26/16 11:10 Troponin I 0.01 ng/mL (<0.04) 07/26/16 20:02 C-Reactive Protein 47.54 mg/L (< 5.00) H 07/31/16 05:55 B-Natriuretic Peptide 117 pg/mL (-100) H 07/26/16 11:10 Total Protein 6.8 g/dL (6.4-8.9) 07/26/16 11:10 Albumin 3.4 g/dL (3.2-5.2) 07/26/16 11:10 Globulin 3.4 g/dL (2-4) 07/26/16 11:10 Albumin/Globulin Ratio 1.0 (1-3) 07/26/16 11:10 Procalcitonin 0.1 ng/mL (<0.6) 07/26/16 11:10 Urine Color Straw 07/26/16 15:30 Urine Appearance Clear 07/26/16 15:30 Urine pH 7.0 (5-9) 07/26/16 15:30 Ur Specific [place] 1.004 (1.010-1.030) L 07/26/16 15:30 Urine Protein Negative (Negative) 07/26/16 15:30 Urine Ketones Negative (Negative) 07/26/16 15:30 Urine Blood 1+ (Negative) H 07/26/16 15:30 Urine Nitrate Negative (Negative) 07/26/16 15:30 Urine Bilirubin Negative (Negative) 07/26/16 15:30 Urine Urobilinogen Negative (Negative) 07/26/16 15:30 Ur Leukocyte Esterase 3+ (Negative) H 07/26/16 15:30 Urine WBC (Auto) 3+(>20/hpf) (Absent) H 07/26/16 15:30 Urine RBC (Auto) Trace(0-2/hpf) (Absent) 07/26/16 15:30 Ur Squamous Epith Cells Present (Absent) H 07/26/16 15:30 Urine Bacteria 1+ (Absent) H 07/26/16 15:30 Urine Glucose Negative (Negative) 07/26/16 15:30 Microbiology and Other Data: Microbiology 07/26/16 15:20 Nasal Screen MRSA (PCR)(JAGUAR) - Final Nasal Mrsa Negative Microbiology 07/26/16 11:22 Aerobic Blood Culture - Preliminary Blood Venous No Growth Day 1 Anaerobic Blood Culture - Preliminary Staphylococcus Epidermidis Blood Culture - Final Blood MRSA/MSSA (PCR) - Final Mrsa Negative S.aureus Negative 07/26/16 11:10 Aerobic Blood Culture - Preliminary Blood Venous Staphylococcus Epidermidis Anaerobic Blood Culture - Preliminary No Growth Day 1 Blood MRSA/MSSA (PCR) - Final Mrsa Negative S.aureus Negative 07/26/16 13:59 Urine Culture - Final Urine Esbl Escherichia Coli Normal [facility]: CT Chest - Left lower lobe consolidation with small bilateral effusions CXR 07/30 - Improved aeration bilaterally, near complete resolution of R sided consolidation I/R: 60 yo female with MS, wheelchair bound with hypoxia, SOB CT chest with evidence of aspiration PNA Pt has difficulty expectorating secretions due to underlying muscular weakness due to MS Poor cough reflex related to her MS Improved with metanebs and high flow c/w DuoNeb/mucomyst No visible aspiration episodes Cont with Meropenem Pt will need cough assist upon d/c D/w Heath Mercado NP
--- NOTE | 2016-08-01 16:45 | PN ---
Subjective Date of Service: 08/01/16 Interval History: Patient seen and examined at bedside. Patient more alert and talkative today. Denies fever, CP, SOB, abd pain, n/v. Requesting lu to be removed. No acute concerns. Family History: Unchanged from Admission Social History: Unchanged from Admission Past Medical History: Unchanged from Admission Objective Active Medications: Acetaminophen (Tylenol Tab*) 650 mg PO Q4H PRN PRN Reason: FEVER/PAIN Last Admin: 07/29/16 18:08 Dose: 650 mg Hydrocodone Bitart/Acetaminophen ([place] 5-325 Tab*) 1 tab PO Q4H PRN PRN Reason: PAIN - UNRELIEVED Amlodipine Besylate (Norvasc Tab*) 5 mg PO DAILY [facility] Last Admin: 08/01/16 10:28 Dose: 5 mg Baclofen (Lioresal Tab*) 20 mg PO BID [facility] Last Admin: 08/01/16 10:28 Dose: 20 mg Bupropion HCl (Wellbutrin Xl *) 150 mg PO QAM [facility] PRN Reason: Protocol Last Admin: 08/01/16 10:28 Dose: 150 mg Cetirizine HCl (Zyrtec*) 10 mg PO DAILY [facility] Last Admin: 08/01/16 10:28 Dose: 10 mg Docusate Sodium (Colace Cap*) 100 mg PO BID [facility] Last Admin: 08/01/16 10:28 Dose: 100 mg Folic Acid (Folvite Tab*) 1 mg PO WEFR [facility] Last Admin: 07/30/16 15:25 Dose: 1 mg Folic Acid (Folvite Tab*) 1 mg PO SUTUTHSA [facility] Last Admin: 08/01/16 12:47 Dose: Not Given Furosemide (Lasix Tab*) 20 mg PO DAILY [facility] Last Admin: 08/01/16 10:29 Dose: 20 mg Heparin Sodium (Porcine) (Heparin Vial(*)) 5,000 units SUBCUT Q8HR [facility] Last Admin: 08/01/16 15:13 Dose: 5,000 units Meropenem (Merrem 1 Gm Premix(*)) 1 gm in 50 mls @ 100 mls/hr IV Q8H [facility] Stop: 08/05/16 14:59 Last Admin: 08/01/16 15:13 Dose: 100 mls/hr Lisinopril (Prinivil Tab*) 5 mg PO DAILY [facility] Last Admin: 08/01/16 10:29 Dose: 5 mg Mirtazapine (Remeron Tab*) 15 mg PO BEDTIME [facility] Last Admin: 07/31/16 21:05 Dose: 15 mg Ondansetron HCl (Zofran Inj*) 4 mg IV Q6H PRN PRN Reason: NAUSEA Last Admin: 07/27/16 19:20 Dose: 4 mg Polyethylene Glycol/Electrolytes (Miralax*) 17 gm PO DAILY [facility] Last Admin: 08/01/16 10:27 Dose: 17 gm Senna (Senokot Tab*) 2 tab PO BID [facility] Last Admin: 08/01/16 10:29 Dose: 2 tab Sodium Chloride (Sodium Chloride 0.65% Nasal [place]*) 1 spray BOTH NARES Q2H PRN PRN Reason: CONGESTION Tamsulosin HCl (Flomax Cap*) 0.4 mg PO BEDTIME [facility] Last Admin: 07/31/16 21:05 Dose: 0.4 mg Tiotropium [place] (Spiriva Cap.Inh*) 1 cap INH DAILY [facility] Last Admin: 08/01/16 07:46 Dose: 1 cap Vital Signs 07/31/16 07/31/16 07/31/16 20:00 20:08 20:15 Temperature 98.4 F Pulse Rate 82 81 Respiratory 22 28 Rate Blood Pressure 72/22 102/56 (mmHg) O2 Sat by Pulse 98 Oximetry 08/01/16 08/01/16 08/01/16 00:41 03:40 04:50 Temperature 98.3 F 98.2 F Pulse Rate 88 83 Respiratory 16 16 Rate Blood Pressure 106/56 111/56 (mmHg) O2 Sat by Pulse 94 94 96 Oximetry 08/01/16 08/01/16 08/01/16 07:48 07:49 08:00 Temperature Pulse Rate 85 19 Respiratory 18 87 20 Rate Blood Pressure (mmHg) O2 Sat by Pulse 96 96 Oximetry 08/01/16 08/01/16 08:12 11:52 Temperature Pulse Rate 81 85 Respiratory 20 Rate Blood Pressure 114/62 116/61 (mmHg) O2 Sat by Pulse 96 98 Oximetry Oxygen Devices in Use Now: Nasal Cannula Appearance: Female patient, alert, sitting up in bed, NAD Ears/Nose/Mouth/Throat: Mucous Membranes Moist Neck: NL Appearance and Movements; NL JVP Respiratory: Symmetrical Chest Expansion and Respiratory Effort, - - scattered rhonchi, right basilar crackles Cardiovascular: RRR Extremities: - - upper extremity contractures, bilateral foot drop Neurological: Alert and Oriented x 3 Lines/Tubes/Other Access: Clean, Dry and Intact Peripheral IV Nutrition: Taking PO's Result Diagrams: 07/31/16 05:55 08/01/16 06:45 Additional Lab and Data: Laboratory Tests 07/29/16 09:30 ABG pH 7.34 L ABG pCO2 69 H ABG pO2 104 H ABG HCO3 32.1 H Microbiology and Other Data: Microbiology 07/26/16 15:20 Nasal Screen MRSA (PCR)(JAGUAR) - Final Nasal Mrsa Negative Microbiology 07/26/16 11:22 Aerobic Blood Culture - Preliminary Blood Venous No Growth Day 1 Anaerobic Blood Culture - Preliminary Staphylococcus Epidermidis Blood Culture - Final Blood MRSA/MSSA (PCR) - Final Mrsa Negative S.aureus Negative 07/26/16 11:10 Aerobic Blood Culture - Preliminary Blood Venous Staphylococcus Epidermidis Anaerobic Blood Culture - Preliminary No Growth Day 1 Blood MRSA/MSSA (PCR) - Final Mrsa Negative S.aureus Negative 07/26/16 13:59 Urine Culture - Final Urine Esbl Escherichia Coli Normal [facility]: Echo - LVEF 50-55%, nl RV, no sig valvular dz, mild-mod LVH CXR - moderate vascular congestion Chest US - L sided consolidation, slight effusion CT Chest - Severe L lung consolidation with small bilateral effusions CXR 07/29 - L sided consolidation resolved, new R consolidation with bilateral effusions CXR 07/30 - Improved aeration bilaterally, near complete resolution of R sided consolidation Assess/Plan/Problems-Billing Assessment: This is a 60 yo female with MS, restricted to motorized wheelchair who presented with c/o SOB. Admitted with suspected CHF exacerbation now with what appears to be an aspiration PNA - Patient Problems (1) PNA (pneumonia) Code(s): J18.9 - PNEUMONIA, UNSPECIFIED ORGANISM Comment: Dense consolidation in the L lung with mucus plugging, still seen on today's XR. Patchy atelectasis noted. Limited cough mechanism related to her MS Appreciate pulmonology and cancer registrar consults Improved, weaned from Vapotherm Patient passed swallow eval, maintain aspiration precautions Cont Meropenem (2) CHF exacerbation Code(s): I50.9 - HEART FAILURE, UNSPECIFIED Comment: More likely to be diastolic with LVH noted on echo and near normal LVEF Complicated by PNA Cont diuresis now with oral Lasix Cont lisinopril/amlodipine for BP control (3) UTI (urinary tract infection) Comment: 50-75K ESBL positive EColi Unsure how much this is contributing to acute picture Treating with Meropenem to cover respiratory and urinary pathogens (4) Bacteremia Code(s): R78.81 - BACTEREMIA Comment: No signs of sepsis 2/4 blood culture bottles grew Staph epi, ESBL Ecoli growing from urine Repeat blood cultures negative at 48 hours ?contaminant (5) HTN (hypertension) Code(s): I10 - ESSENTIAL (PRIMARY) HYPERTENSION Comment: Improved control Cont lisinopril/amlodipine (6) Multiple sclerosis Code(s): G35 - MULTIPLE SCLEROSIS Comment: Functionally quadriplegic, limited to motorized wheelchair (7) PVD (peripheral vascular disease) Code(s): I73.9 - PERIPHERAL VASCULAR DISEASE, UNSPECIFIED Comment: Continue outpatient follow-up (8) GERD (gastroesophageal reflux disease) Code(s): K21.9 - GASTRO-ESOPHAGEAL REFLUX DISEASE WITHOUT ESOPHAGITIS Comment : Stable Not on medication (9) Sacral ulcer Code(s): L98.429 - NON-PRESSURE CHRONIC ULCER OF BACK WITH UNSPECIFIED SEVERITY (10) DVT prophylaxis Code(s): [id number] - Comment: SQ heparin (11) Full code status Code(s): Z78.9 - OTHER SPECIFIED HEALTH STATUS Status and Disposition: Inpatient. Anticipate d/c in ~2-3 days
[2016-08-01] MEDS: Mirtazapine TAB* 15 MG PO SCH (21:25)
[2016-08-01] MEDS: Tamsulosin CAP* 0.4 MG PO SCH (21:25)
[2016-08-02] MEDS: Heparin VIAL(*) 5000 UNITS/ML VIAL (FIVE THOUSAND) SUBCUT SCH ×3 (05:23→20:36)
[2016-08-02] MEDS: Meropenem 1 GM PREMIX(*) 1 GM/50 ML BAG IV SCH (05:59)
[2016-08-02] MEDS: Senna TAB PO SCH ×2 (07:18→20:35)
[2016-08-02] MEDS: Polyethylene Glycol 3350* 17 GM PACKET PO SCH (07:18)
[2016-08-02] MEDS: Docusate CAP* 100 MG PO SCH ×2 (07:18→20:35)
[2016-08-02] MEDS: Tiotropium CAP.INH* CAP.INH/18 MCG INH SCH (08:40)
[2016-08-02] MEDS: Furosemide TAB* 40 MG PO SCH (09:25)
[2016-08-02] MEDS: amLODIPine TAB* 5 MG PO SCH (09:25)
[2016-08-02] MEDS: Lisinopril TAB* 5 MG PO SCH (09:25)
[2016-08-02] MEDS: BuPROPion XL* 150 MG TAB.XL PO SCH (09:25)
[2016-08-02] MEDS: Cetirizine* 10 MG TAB PO SCH (09:25)
[2016-08-02] MEDS: Baclofen TAB* 20 MG PO SCH ×2 (09:25→20:36)
[2016-08-02] MEDS ORDERED: Zosyn per Pharmacy* NOTE FOLLOW UP SCH (13:00)
--- NOTE | 2016-08-02 13:23 | PN ---
Subjective Date of Service: 08/02/16 Interval History: Patient seen and examined at bedside. She denies fever/chills, CP, SOB, abd pain, n/v, dysuria. She c/o not sleeping well here and is eager for discharge back to [facility]. Patient understands that she is receiving IV abx to treat dual infection and ultimately would rather stay for full treatment then put herself at risk. Family History: Unchanged from Admission Social History: Unchanged from Admission Past Medical History: Unchanged from Admission Objective Active Medications: Acetaminophen (Tylenol Tab*) 650 mg PO Q4H PRN PRN Reason: FEVER/PAIN Last Admin: 07/29/16 18:08 Dose: 650 mg Hydrocodone Bitart/Acetaminophen ([place] 5-325 Tab*) 1 tab PO Q4H PRN PRN Reason: PAIN - UNRELIEVED Amlodipine Besylate (Norvasc Tab*) 5 mg PO DAILY [facility] Last Admin: 08/02/16 09:25 Dose: 5 mg Baclofen (Lioresal Tab*) 20 mg PO BID [facility] Last Admin: 08/02/16 09:25 Dose: 20 mg Bupropion HCl (Wellbutrin Xl *) 150 mg PO QAM [facility] PRN Reason: Protocol Last Admin: 08/02/16 09:25 Dose: 150 mg Cetirizine HCl (Zyrtec*) 10 mg PO DAILY [facility] Last Admin: 08/02/16 09:25 Dose: 10 mg Docusate Sodium (Colace Cap*) 100 mg PO BID [facility] Last Admin: 08/02/16 07:18 Dose: Not Given Folic Acid (Folvite Tab*) 1 mg PO WEFR [facility] Last Admin: 07/30/16 15:25 Dose: 1 mg Folic Acid (Folvite Tab*) 1 mg PO SUTUTHSA [facility] Last Admin: 08/01/16 12:47 Dose: Not Given Furosemide (Lasix Tab*) 20 mg PO DAILY [facility] Last Admin: 08/02/16 09:25 Dose: 20 mg Heparin Sodium (Porcine) (Heparin Vial(*)) 5,000 units SUBCUT Q8HR [facility] Last Admin: 08/02/16 05:23 Dose: 5,000 units Piperacillin Sod/Tazobactam (Sod 3.375 gm/ Sodium Chloride) 100 mls @ 66.667 mls/hr IVPB ONCE ONE Stop: 08/02/16 13:39 Lisinopril (Prinivil Tab*) 5 mg PO DAILY [facility] Last Admin: 08/02/16 09:25 Dose: 5 mg Mirtazapine (Remeron Tab*) 15 mg PO BEDTIME [facility] Last Admin: 08/01/16 21:25 Dose: 15 mg Ondansetron HCl (Zofran Inj*) 4 mg IV Q6H PRN PRN Reason: NAUSEA Last Admin: 07/27/16 19:20 Dose: 4 mg Pharmacy Consult (Zosyn Per Pharmacy*) 1 note FOLLOW UP .ZOSYN PER PHARMACY [facility] Polyethylene Glycol/Electrolytes (Miralax*) 17 gm PO DAILY [facility] Last Admin: 08/02/16 07:18 Dose: Not Given Senna (Senokot Tab*) 2 tab PO BID [facility] Last Admin: 08/02/16 07:18 Dose: Not Given Sodium Chloride (Sodium Chloride 0.65% Nasal [place]*) 1 spray BOTH NARES Q2H PRN PRN Reason: CONGESTION Tamsulosin HCl (Flomax Cap*) 0.4 mg PO BEDTIME [facility] Last Admin: 08/01/16 21:25 Dose: 0.4 mg Tiotropium [place] (Spiriva Cap.Inh*) 1 cap INH DAILY [facility] Last Admin: 08/02/16 08:40 Dose: 1 cap Vital Signs 08/01/16 08/01/16 08/02/16 15:08 19:25 00:26 Temperature 98.3 F 98.0 F Pulse Rate 89 87 Respiratory 20 22 20 Rate Blood Pressure 101/53 121/52 (mmHg) O2 Sat by Pulse 96 91 Oximetry 08/02/16 08/02/16 08/02/16 01:23 07:50 08:00 Temperature 98.0 F Pulse Rate 78 Respiratory 24 20 Rate Blood Pressure 121/71 (mmHg) O2 Sat by Pulse 96 91 Oximetry 08/02/16 08/02/16 08:40 12:10 Temperature 98.4 F Pulse Rate 88 86 Respiratory 22 Rate Blood Pressure 113/53 (mmHg) O2 Sat by Pulse 96 Oximetry Oxygen Devices in Use Now: Nasal Cannula Appearance: Female patient, sitting up in bed, NAD Eyes: PERRLA Ears/Nose/Mouth/Throat: Mucous Membranes Moist Neck: NL Appearance and Movements; NL JVP Respiratory: Symmetrical Chest Expansion and Respiratory Effort, - - crackles in bilateral bases Cardiovascular: RRR Abdominal: NL Sounds; No Tenderness; No Distention Extremities: - - upper extremity contractures, bilateral foot drop Neurological: Alert and Oriented x 3 Lines/Tubes/Other Access: Clean, Dry and Intact Peripheral IV Nutrition: Taking PO's Result Diagrams: 07/31/16 05:55 08/01/16 06:45 Additional Lab and Data: Laboratory Tests 07/29/16 09:30 ABG pH 7.34 L ABG pCO2 69 H ABG pO2 104 H ABG HCO3 32.1 H Microbiology and Other Data: Microbiology 07/26/16 15:20 Nasal Screen MRSA (PCR)(JAGUAR) - Final Nasal Mrsa Negative Microbiology 07/26/16 11:22 Aerobic Blood Culture - Preliminary Blood Venous No Growth Day 1 Anaerobic Blood Culture - Preliminary Staphylococcus Epidermidis Blood Culture - Final Blood MRSA/MSSA (PCR) - Final Mrsa Negative S.aureus Negative 07/26/16 11:10 Aerobic Blood Culture - Preliminary Blood Venous Staphylococcus Epidermidis Anaerobic Blood Culture - Preliminary No Growth Day 1 Blood MRSA/MSSA (PCR) - Final Mrsa Negative S.aureus Negative 07/26/16 13:59 Urine Culture - Final Urine Esbl Escherichia Coli Normal [facility]: Echo - LVEF 50-55%, nl RV, no sig valvular dz, mild-mod LVH CXR - moderate vascular congestion Chest US - L sided consolidation, slight effusion CT Chest - Severe L lung consolidation with small bilateral effusions CXR 07/29 - L sided consolidation resolved, new R consolidation with bilateral effusions CXR 07/30 - Improved aeration bilaterally, near complete resolution of R sided consolidation Assess/Plan/Problems-Billing Assessment: This is a 60 yo female with MS, restricted to motorized wheelchair who presented with c/o SOB. Admitted with suspected CHF exacerbation now with what appears to be an aspiration PNA - Patient Problems (1) PNA (pneumonia) Code(s): J18.9 - PNEUMONIA, UNSPECIFIED ORGANISM Comment: Suspect aspiration component, given patient's presentation and scans. During admission, radiology scans revealed concern for left sided consolidation that was thought to be evolving from previous aspiration. Dense consolidation in the L lung with mucus plugging, still seen on most recent XR. Patchy atelectasis noted. Limited cough mechanism related to her MS Appreciate consults from pulm, touch up carver, ID Meropenem switched to Zosyn per ID, continue for 1-2 more days prior to dc (2) Acute respiratory failure with hypoxia Code(s): J96.01 - ACUTE RESPIRATORY FAILURE WITH HYPOXIA Comment: With RLL atelectasis and aspiration Improving, patient still requiring 5L nc (3) CHF exacerbation Code(s): I50.9 - HEART FAILURE, UNSPECIFIED Comment: More likely to be diastolic with LVH noted on echo and near normal LVEF Complicated by PNA Cont diuresis now with oral Lasix Cont lisinopril/amlodipine for BP control (4) UTI (urinary tract infection) Comment: 50-75K ESBL positive EColi Unsure how much this is contributing to acute picture Change meropenem to Zosyn to cover respiratory and urinary pathogens (5) Bacteremia Code(s): R78.81 - BACTEREMIA Comment: No signs of sepsis 2/4 blood culture bottles grew Staph epi, ESBL Ecoli growing from urine Repeat blood cultures negative at 48 hours ?contaminant (6) HTN (hypertension) Code(s): I10 - ESSENTIAL (PRIMARY) HYPERTENSION Comment: Normotensive Cont lisinopril/amlodipine (7) Multiple sclerosis Code(s): G35 - MULTIPLE SCLEROSIS Comment: Functionally quadriplegic, limited to motorized wheelchair (8) PVD (peripheral vascular disease) Code(s): I73.9 - PERIPHERAL VASCULAR DISEASE, UNSPECIFIED Comment: Continue outpatient follow-up (9) GERD (gastroesophageal reflux disease) Code(s): K21.9 - GASTRO-ESOPHAGEAL REFLUX DISEASE WITHOUT ESOPHAGITIS Comment : Stable Not on medication (10) Sacral ulcer Code(s): L98.429 - NON-PRESSURE CHRONIC ULCER OF BACK WITH UNSPECIFIED SEVERITY Comment: Previously documented stage III ulcer on admission Improving Continue mepilex (11) DVT prophylaxis Code(s): [id number] - Comment: SQ heparin (12) Full code status Code(s): Z78.9 - OTHER SPECIFIED HEALTH STATUS Status and Disposition: Inpatient. Anticipate d/c in ~2-3 days
--- NOTE | 2016-08-02 14:22 | CONS ---
CONSULTATION REPORT: DATE OF CONSULTATION: 08/02/16 REQUESTING PROVIDER: Jordyn Fitzgerald NP. CONSULTING SERVICE: Infectious Disease. REASON FOR CONSULTATION: Pneumonia. IMPRESSION: 1. Acute hypoxemic respiratory failure, present on admission, resolved. 2. Secondary to multifocal pneumonia, which includes left upper and lower lobes and right lower lobe dense consolidation seen on CT scan in the setting of multiple sclerosis and impaired cough reflex, a likely component of aspiration. 3. Urine culture that grew an E. coli, ESBL livestock producer, 50,000 to 75,000 colonies. Urinalysis showed blood and leukocyte esterase. She does not have urinary tract symptoms when she has infection given her underlying neurologic deficits. 4. Multiple sclerosis. 5. Peripheral vascular disease. RECOMMENDATIONS: Stop meropenem. We will start Zosyn and continue IV treatment for now and ideally would be able to change her to oral antibiotics for discharge. HISTORY OF PRESENT ILLNESS: This is a 60-year-old woman with severe multiple sclerosis, admitted with acute hypoxemic respiratory failure when she was found to be hypoxemic while being repositioned at [facility]. They sent her to ER on the and she had a white count of 5000. She had low-grade fever. Her oxygen saturation was in the high 80s on room air. CRP was 17. She was started on meropenem. She had blood cultures sent that 2 of 4 bottles grew Staph epidermidis. She had a urine culture that grew E. coli as above. Followup blood cultures on the were negative. She has had a couple of low- grade fevers here. She cannot cough, but she can start a cough and that she thinks is getting better. Over her course here, she initially was on high flow oxygen. She is down to 5 L now. She does not have shortness of breath at rest. She has no complaints. PAST MEDICAL HISTORY: 1. Multiple sclerosis. 2. History of chronic Nava catheter. 3. Peripheral vascular disease, status post right lower extremity stent. 4. History of sacral ulcer. 5. Gastroesophageal reflux disease. 6. Right upper extremity skin graft. 7. Status post tubal ligation. MEDICATIONS: 1. Tylenol. 2. Baclofen. 3. Bupropion. 4. Cetirizine. 5. Docusate. 6. Folic acid. 7. Furosemide. 8. Heparin subcutaneous injection. 9. Lisinopril. 10. Meropenem 1 g IV every 8 hours. 11. Mirtazapine. 12. Senna. 13. Spiriva. 14. Tamsulosin. 15. Amlodipine. ALLERGIES: KETOCONAZOLE and LATEX. FAMILY HISTORY: No recurrent infections. SOCIAL HISTORY: She lives at [facility]. She has no travel or sick contacts. REVIEW OF SYSTEMS: A full review of systems is negative except as noted above. PHYSICAL EXAMINATION: GENERAL: She is awake, not in distress. VITAL SIGNS: Temperature is 36.7, heart rate 80, respiratory rate 20, blood pressure 121/71, O2 sat 91% on 6 L. HEENT: There is no conjunctival hemorrhage. Oropharynx without lesions. NECK: Supple without nuchal rigidity. LYMPH NODES: There is no cervical, supraclavicular, inguinal, axillary, or epitrochlear lymphadenopathy. LUNGS: There is decreased breath sounds at the left base without wheezes or rales. HEART: Regular rate and rhythm without murmurs, rubs, or gallops. ABDOMEN: Soft, nontender, nondistended. EXTREMITIES: She has upper and lower extremity contractures and severe atrophy. MUSCULOSKELETAL: There is no spine tenderness to palpation or joint synovitis. SKIN: There is no rash or splinter hemorrhages. NEUROLOGIC: She is oriented x3. Answers questions appropriately. DIAGNOSTIC STUDIES/LABORATORY DATA: Creatinine 0.5. CRP 47. White blood cell count 7, hemoglobin 10, platelets 242,000. Please see impressions and recommendations outlined above, which I have discussed with Jordyn Fitzgerald NP. Thank you for allowing me to see Ms. Anglin in consultation. [id number]/[facility] #: [id number] [facility]
[2016-08-02] MEDS: Ondansetron INJ* 2 MG/ML VIAL IV PRN ×2 (14:54→20:36)
[2016-08-02] MEDS: Tamsulosin CAP* 0.4 MG PO SCH (20:36)
[2016-08-02] MEDS: Mirtazapine TAB* 15 MG PO SCH (20:37)
[2016-08-02] MEDS: HYDROcodone/ACETAMIN 5-325 MG* 1 TAB PO PRN (20:37)
[2016-08-02] MEDS ORDERED: CMCS Melatonin (NF) 3 MG TAB PO PRN (22:57)
[2016-08-03] MEDS: Heparin VIAL(*) 5000 UNITS/ML VIAL (FIVE THOUSAND) SUBCUT SCH ×3 (05:45→21:23)
[2016-08-03] MEDS: Tiotropium CAP.INH* CAP.INH/18 MCG INH SCH (07:43)
[2016-08-03] MEDS: Docusate CAP* 100 MG PO SCH ×2 (08:24→21:22)
[2016-08-03] MEDS: Polyethylene Glycol 3350* 17 GM PACKET PO SCH (08:24)
[2016-08-03] MEDS: Senna TAB PO SCH ×2 (08:25→21:23)
[2016-08-03] MEDS: Cetirizine* 10 MG TAB PO SCH (09:36)
[2016-08-03] MEDS: Furosemide TAB* 40 MG PO SCH (09:36)
[2016-08-03] MEDS: Lisinopril TAB* 5 MG PO SCH (09:36)
[2016-08-03] MEDS: amLODIPine TAB* 5 MG PO SCH (09:37)
[2016-08-03] MEDS: Baclofen TAB* 20 MG PO SCH ×2 (09:37→21:22)
[2016-08-03] MEDS: BuPROPion XL* 150 MG TAB.XL PO SCH (09:37)
--- NOTE | 2016-08-03 11:13 | PN ---
Subjective Date of Service: 08/03/16 Interval History: Patient seen and examined at bedside. Ms. Anglin denies fever/chills, CP, SOB , abd pain, n/v, dysuria. [facility], patient uses O2 intermittently. Family History: Unchanged from Admission Social History: Unchanged from Admission Past Medical History: Unchanged from Admission Objective Active Medications: Acetaminophen (Tylenol Tab*) 650 mg PO Q4H PRN PRN Reason: FEVER/PAIN Last Admin: 07/29/16 18:08 Dose: 650 mg Hydrocodone Bitart/Acetaminophen ([place] 5-325 Tab*) 1 tab PO Q4H PRN PRN Reason: PAIN - UNRELIEVED Last Admin: 08/02/16 20:37 Dose: 1 tab Amlodipine Besylate (Norvasc Tab*) 5 mg PO DAILY [facility] Last Admin: 08/03/16 09:37 Dose: 5 mg Baclofen (Lioresal Tab*) 20 mg PO BID [facility] Last Admin: 08/03/16 09:37 Dose: 20 mg Bupropion HCl (Wellbutrin Xl *) 150 mg PO QAM [facility] PRN Reason: Protocol Last Admin: 08/03/16 09:37 Dose: 150 mg Cetirizine HCl (Zyrtec*) 10 mg PO DAILY [facility] Last Admin: 08/03/16 09:36 Dose: 10 mg Docusate Sodium (Colace Cap*) 100 mg PO BID [facility] Last Admin: 08/03/16 08:24 Dose: Not Given Folic Acid (Folvite Tab*) 1 mg PO WEFR [facility] Last Admin: 07/30/16 15:25 Dose: 1 mg Folic Acid (Folvite Tab*) 1 mg PO SUTUTHSA [facility] Last Admin: 08/01/16 12:47 Dose: Not Given Furosemide (Lasix Tab*) 20 mg PO DAILY [facility] Last Admin: 08/03/16 09:36 Dose: 20 mg Heparin Sodium (Porcine) (Heparin Vial(*)) 5,000 units SUBCUT Q8HR [facility] Last Admin: 08/03/16 05:45 Dose: 5,000 units Piperacillin Sod/Tazobactam (Sod 3.375 gm/ Sodium Chloride) 100 mls @ 25 mls/ hr IVPB Q8H [facility] Last Admin: 08/03/16 09:38 Dose: 25 mls/hr Lisinopril (Prinivil Tab*) 5 mg PO DAILY [facility] Last Admin: 08/03/16 09:36 Dose: 5 mg Melatonin (Melatonin (Nf)) 3 mg PO ONCE PRN PRN Reason: SLEEP Stop: 08/03/16 22:56 Last Admin: 08/03/16 00:08 Dose: 3 mg Mirtazapine (Remeron Tab*) 15 mg PO BEDTIME [facility] Last Admin: 08/02/16 20:37 Dose: 15 mg Ondansetron HCl (Zofran Inj*) 4 mg IV Q6H PRN PRN Reason: NAUSEA Last Admin: 08/02/16 20:36 Dose: 4 mg Pharmacy Consult (Zosyn Per Pharmacy*) 1 note FOLLOW UP .ZOSYN PER PHARMACY [facility] Polyethylene Glycol/Electrolytes (Miralax*) 17 gm PO DAILY [facility] Last Admin: 08/03/16 08:24 Dose: Not Given Senna (Senokot Tab*) 2 tab PO BID [facility] Last Admin: 08/03/16 08:25 Dose: Not Given Sodium Chloride (Sodium Chloride 0.65% Nasal [place]*) 1 spray BOTH NARES Q2H PRN PRN Reason: CONGESTION Tamsulosin HCl (Flomax Cap*) 0.4 mg PO BEDTIME [facility] Last Admin: 08/02/16 20:36 Dose: 0.4 mg Tiotropium [place] (Spiriva Cap.Inh*) 1 cap INH DAILY [facility] Last Admin: 08/03/16 07:43 Dose: 1 cap Vital Signs 08/02/16 08/02/16 08/02/16 12:10 16:05 19:20 Temperature 98.4 F 98.5 F Pulse Rate 86 81 Respiratory 22 18 18 Rate Blood Pressure 113/53 91/51 (mmHg) O2 Sat by Pulse 96 93 Oximetry 08/02/16 08/02/16 08/02/16 19:29 19:59 20:37 Temperature 98.2 F Pulse Rate 86 Respiratory 20 17 Rate Blood Pressure 81/38 (mmHg) O2 Sat by Pulse 93 91 Oximetry 08/02/16 08/03/16 08/03/16 22:37 00:01 07:34 Temperature 97.9 F Pulse Rate 74 Respiratory 18 20 Rate Blood Pressure 97/52 (mmHg) O2 Sat by Pulse 100 99 Oximetry 08/03/16 08/03/16 07:41 07:43 Temperature 97.8 F Pulse Rate 16 82 Respiratory 99 22 Rate Blood Pressure 117/59 (mmHg) O2 Sat by Pulse 74 94 Oximetry Oxygen Devices in Use Now: Nasal Cannula Appearance: Female patient, sitting up in bed, NAD Eyes: PERRLA Ears/Nose/Mouth/Throat: Mucous Membranes Moist Respiratory: - - diminished in bases, L>R Cardiovascular: RRR Abdominal: NL Sounds; No Tenderness; No Distention Neurological: Alert and Oriented x 3 Lines/Tubes/Other Access: Clean, Dry and Intact Peripheral IV Result Diagrams: 07/31/16 05:55 08/01/16 06:45 Additional Lab and Data: Laboratory Tests 07/29/16 09:30 ABG pH 7.34 L ABG pCO2 69 H ABG pO2 104 H ABG HCO3 32.1 H Microbiology and Other Data: Microbiology 07/26/16 15:20 Nasal Screen MRSA (PCR)(JAGUAR) - Final Nasal Mrsa Negative Microbiology 07/26/16 11:22 Aerobic Blood Culture - Preliminary Blood Venous No Growth Day 1 Anaerobic Blood Culture - Preliminary Staphylococcus Epidermidis Blood Culture - Final Blood MRSA/MSSA (PCR) - Final Mrsa Negative S.aureus Negative 07/26/16 11:10 Aerobic Blood Culture - Preliminary Blood Venous Staphylococcus Epidermidis Anaerobic Blood Culture - Preliminary No Growth Day 1 Blood MRSA/MSSA (PCR) - Final Mrsa Negative S.aureus Negative 07/26/16 13:59 Urine Culture - Final Urine Esbl Escherichia Coli Normal [facility]: Echo - LVEF 50-55%, nl RV, no sig valvular dz, mild-mod LVH CXR - moderate vascular congestion Chest US - L sided consolidation, slight effusion CT Chest - Severe L lung consolidation with small bilateral effusions CXR 07/29 - L sided consolidation resolved, new R consolidation with bilateral effusions CXR 07/30 - Improved aeration bilaterally, near complete resolution of R sided consolidation Assess/Plan/Problems-Billing Assessment: This is a 60 yo female with MS, restricted to motorized wheelchair who presented with c/o SOB. Admitted with suspected CHF exacerbation now with what appears to be an aspiration PNA - Patient Problems (1) PNA (pneumonia) Code(s): J18.9 - PNEUMONIA, UNSPECIFIED ORGANISM Comment: Suspect aspiration component, given patient's presentation and scans. During admission, radiology scans revealed concern for left sided consolidation that was thought to be evolving from previous aspiration. Dense consolidation in the L lung with mucus plugging, still seen on most recent XR. Patchy atelectasis noted. Limited cough mechanism related to her MS Appreciate consults from pulm, miller kiln dried salt, ID Meropenem switched to Zosyn per ID, continue for 1-2 more days prior to dc (2) Acute respiratory failure with hypoxia Code(s): J96.01 - ACUTE RESPIRATORY FAILURE WITH HYPOXIA Comment: With RLL atelectasis and aspiration Improving, patient weaned to 3Lnc Has previously used O2 intermittently at [facility] [place] (3) CHF exacerbation Code(s): I50.9 - HEART FAILURE, UNSPECIFIED Comment: More likely to be diastolic with LVH noted on echo and near normal LVEF Complicated by PNA Cont diuresis now with oral Lasix Cont lisinopril/amlodipine for BP control (4) UTI (urinary tract infection) Comment: 50-75K ESBL positive EColi Unsure how much this is contributing to acute picture Change meropenem to Zosyn to cover respiratory and urinary pathogens (5) Bacteremia Code(s): R78.81 - BACTEREMIA Comment: No signs of sepsis 2/4 blood culture bottles grew Staph epi, ESBL Ecoli growing from urine Repeat blood cultures negative at 48 hours ?contaminant (6) HTN (hypertension) Code(s): I10 - ESSENTIAL (PRIMARY) HYPERTENSION Comment: Normotensive Cont lisinopril/amlodipine (7) Multiple sclerosis Code(s): G35 - MULTIPLE SCLEROSIS Comment: Functionally quadriplegic, limited to motorized wheelchair (8) PVD (peripheral vascular disease) Code(s): I73.9 - PERIPHERAL VASCULAR DISEASE, UNSPECIFIED Comment: Continue outpatient follow-up (9) GERD (gastroesophageal reflux disease) Code(s): K21.9 - GASTRO-ESOPHAGEAL REFLUX DISEASE WITHOUT ESOPHAGITIS Comment : Stable Not on medication (10) Sacral ulcer Code(s): L98.429 - NON-PRESSURE CHRONIC ULCER OF BACK WITH UNSPECIFIED SEVERITY Comment: Previously documented stage III ulcer on admission Improving Continue mepilex (11) DVT prophylaxis Code(s): RFM3406 - Comment: SQ heparin (12) Full code status Code(s): Z78.9 - OTHER SPECIFIED HEALTH STATUS Status and Disposition: Inpatient. Anticipate d/c in ~2-3 days
[2016-08-03] MEDS: Folic Acid TAB* 1 MG PO SCH (15:39)
[2016-08-03] MEDS: Tamsulosin CAP* 0.4 MG PO SCH (21:15)
[2016-08-03] MEDS: Mirtazapine TAB* 15 MG PO SCH (21:16)
[2016-08-04] MEDS: Heparin VIAL(*) 5000 UNITS/ML VIAL (FIVE THOUSAND) SUBCUT SCH ×2 (06:24→13:16)
[2016-08-04 07:37] VITALS: BP 119/66
[2016-08-04] MEDS: Tiotropium CAP.INH* CAP.INH/18 MCG INH SCH (08:11)
[2016-08-04] MEDS: Polyethylene Glycol 3350* 17 GM PACKET PO SCH ×2 (08:52→08:57)
[2016-08-04] MEDS: Senna TAB PO SCH (08:52)
[2016-08-04] MEDS: Docusate CAP* 100 MG PO SCH (08:52)
[2016-08-04] MEDS: Lisinopril TAB* 5 MG PO SCH (08:52)
[2016-08-04] MEDS: BuPROPion XL* 150 MG TAB.XL PO SCH (08:52)
[2016-08-04] MEDS: Baclofen TAB* 20 MG PO SCH (08:52)
[2016-08-04] MEDS: Furosemide TAB* 40 MG PO SCH (08:53)
[2016-08-04] MEDS: Cetirizine* 10 MG TAB PO SCH (08:53)
[2016-08-04] MEDS: amLODIPine TAB* 5 MG PO SCH (08:53)
--- NOTE | 2016-08-04 12:13 | PN ---
Subjective Date of Service: 08/04/16 Interval History: Patient seen and examined at bedside. She is resting comfortably in bed, denies CP, SOB, abd pain, n/v, fever/chills. No acute concerns expressed. Family History: Unchanged from Admission Social History: Unchanged from Admission Past Medical History: Unchanged from Admission Objective Active Medications: Acetaminophen (Tylenol Tab*) 650 mg PO Q4H PRN PRN Reason: FEVER/PAIN Last Admin: 07/29/16 18:08 Dose: 650 mg Hydrocodone Bitart/Acetaminophen ([place] 5-325 Tab*) 1 tab PO Q4H PRN PRN Reason: PAIN - UNRELIEVED Last Admin: 08/02/16 20:37 Dose: 1 tab Amlodipine Besylate (Norvasc Tab*) 5 mg PO DAILY [facility] Last Admin: 08/04/16 08:53 Dose: 5 mg Baclofen (Lioresal Tab*) 20 mg PO BID [facility] Last Admin: 08/04/16 08:52 Dose: 20 mg Bupropion HCl (Wellbutrin Xl *) 150 mg PO QAM [facility] PRN Reason: Protocol Last Admin: 08/04/16 08:52 Dose: 150 mg Cetirizine HCl (Zyrtec*) 10 mg PO DAILY [facility] Last Admin: 08/04/16 08:53 Dose: 10 mg Docusate Sodium (Colace Cap*) 100 mg PO BID [facility] Last Admin: 08/04/16 08:52 Dose: 100 mg Folic Acid (Folvite Tab*) 1 mg PO WEFR [facility] Last Admin: 07/30/16 15:25 Dose: 1 mg Folic Acid (Folvite Tab*) 1 mg PO SUTUTHSA [facility] Last Admin: 08/03/16 15:39 Dose: 1 mg Furosemide (Lasix Tab*) 20 mg PO DAILY [facility] Last Admin: 08/04/16 08:53 Dose: 20 mg Heparin Sodium (Porcine) (Heparin Vial(*)) 5,000 units SUBCUT Q8HR [facility] Last Admin: 08/04/16 06:24 Dose: 5,000 units Piperacillin Sod/Tazobactam (Sod 3.375 gm/ Sodium Chloride) 100 mls @ 25 mls/ hr IVPB Q8H [facility] Last Admin: 08/04/16 09:01 Dose: 25 mls/hr Lisinopril (Prinivil Tab*) 5 mg PO DAILY [facility] Last Admin: 08/04/16 08:52 Dose: 5 mg Mirtazapine (Remeron Tab*) 15 mg PO BEDTIME [facility] Last Admin: 08/03/16 21:16 Dose: 15 mg Ondansetron HCl (Zofran Inj*) 4 mg IV Q6H PRN PRN Reason: NAUSEA Last Admin: 08/02/16 20:36 Dose: 4 mg Pharmacy Consult (Zosyn Per Pharmacy*) 1 note FOLLOW UP .ZOSYN PER PHARMACY [facility] Polyethylene Glycol/Electrolytes (Miralax*) 17 gm PO DAILY [facility] Last Admin: 08/04/16 08:57 Dose: Not Given Senna (Senokot Tab*) 2 tab PO BID [facility] Last Admin: 08/04/16 08:52 Dose: 2 tab Sodium Chloride (Sodium Chloride 0.65% Nasal [place]*) 1 spray BOTH NARES Q2H PRN PRN Reason: CONGESTION Tamsulosin HCl (Flomax Cap*) 0.4 mg PO BEDTIME [facility] Last Admin: 08/03/16 21:15 Dose: 0.4 mg Tiotropium [place] (Spiriva Cap.Inh*) 1 cap INH DAILY [facility] Last Admin: 08/04/16 08:11 Dose: 1 cap Vital Signs 08/03/16 08/03/16 08/03/16 16:53 16:55 20:00 Temperature 100.6 F Pulse Rate 76 Respiratory 18 19 Rate Blood Pressure 96/52 (mmHg) O2 Sat by Pulse 94 Oximetry 08/03/16 08/03/16 08/03/16 20:20 20:21 23:41 Temperature 98.5 F 97.6 F Pulse Rate 80 82 Respiratory 20 15 Rate Blood Pressure 92/46 123/63 (mmHg) O2 Sat by Pulse 91 94 96 Oximetry 08/04/16 08/04/16 08/04/16 03:42 07:37 08:00 Temperature 97.7 F Pulse Rate 77 75 Respiratory 17 16 16 Rate Blood Pressure 113/60 119/66 (mmHg) O2 Sat by Pulse 94 95 Oximetry 08/04/16 08:14 Temperature Pulse Rate 63 Respiratory 16 Rate Blood Pressure (mmHg) O2 Sat by Pulse 92 Oximetry Oxygen Devices in Use Now: Nasal Cannula Appearance: Female patient, sitting up in bed, NAD Eyes: PERRLA Ears/Nose/Mouth/Throat: Mucous Membranes Moist Respiratory: Symmetrical Chest Expansion and Respiratory Effort, - - diminished in the bases L>R Cardiovascular: RRR Abdominal: NL Sounds; No Tenderness; No Distention Neurological: Alert and Oriented x 3 Result Diagrams: 07/31/16 05:55 08/01/16 06:45 Additional Lab and Data: Laboratory Tests 07/29/16 09:30 ABG pH 7.34 L ABG pCO2 69 H ABG pO2 104 H ABG HCO3 32.1 H Microbiology and Other Data: Microbiology 07/26/16 15:20 Nasal Screen MRSA (PCR)(JAGUAR) - Final Nasal Mrsa Negative Microbiology 07/26/16 11:22 Aerobic Blood Culture - Preliminary Blood Venous No Growth Day 1 Anaerobic Blood Culture - Preliminary Staphylococcus Epidermidis Blood Culture - Final Blood MRSA/MSSA (PCR) - Final Mrsa Negative S.aureus Negative 07/26/16 11:10 Aerobic Blood Culture - Preliminary Blood Venous Staphylococcus Epidermidis Anaerobic Blood Culture - Preliminary No Growth Day 1 Blood MRSA/MSSA (PCR) - Final Mrsa Negative S.aureus Negative 07/26/16 13:59 Urine Culture - Final Urine Esbl Escherichia Coli Normal [facility]: Echo - LVEF 50-55%, nl RV, no sig valvular dz, mild-mod LVH CXR - moderate vascular congestion Chest US - L sided consolidation, slight effusion CT Chest - Severe L lung consolidation with small bilateral effusions CXR 07/29 - L sided consolidation resolved, new R consolidation with bilateral effusions CXR 07/30 - Improved aeration bilaterally, near complete resolution of R sided consolidation Assess/Plan/Problems-Billing Assessment: This is a 60 yo female with MS, restricted to motorized wheelchair who presented with c/o SOB. Admitted with suspected CHF exacerbation now with what appears to be an aspiration PNA - Patient Problems (1) PNA (pneumonia) Code(s): J18.9 - PNEUMONIA, UNSPECIFIED ORGANISM Comment: Improving, will be continued on Augmentin for 5 additional days Chest PT to continue at [facility], facility unable to provide cough assist device Follow up with pulmonology Suspect aspiration component, given patient's presentation and scans. During admission, radiology scans revealed concern for left sided consolidation that was thought to be evolving from previous aspiration. Dense consolidation in the L lung with mucus plugging, still seen on most recent XR. Patchy atelectasis noted. Limited cough mechanism related to her MS Appreciate consults from pulm, control panel builder, ID (2) Acute respiratory failure with hypoxia Code(s): J96.01 - ACUTE RESPIRATORY FAILURE WITH HYPOXIA Comment: With RLL atelectasis and aspiration Improving, patient weaned to 3Lnc Has previously used O2 intermittently at [facility] (3) CHF exacerbation Code(s): I50.9 - HEART FAILURE, UNSPECIFIED Comment: More likely to be diastolic with LVH noted on echo and near normal LVEF Complicated by PNA Cont lisinopril/amlodipine for BP control Continue prn furosemide as outpatient (4) UTI (urinary tract infection) Comment: 50-75K ESBL positive EColi Continue Augmentin for 5 additional days (5) Bacteremia Code(s): R78.81 - BACTEREMIA Comment: No signs of sepsis 2/4 blood culture bottles grew Staph epi, ESBL Ecoli growing from urine Repeat blood cultures negative at 48 hours ?contaminant (6) HTN (hypertension) Code(s): I10 - ESSENTIAL (PRIMARY) HYPERTENSION Comment: Normotensive Cont lisinopril/amlodipine (7) Multiple sclerosis Code(s): G35 - MULTIPLE SCLEROSIS Comment: Functionally quadriplegic, limited to motorized wheelchair (8) PVD (peripheral vascular disease) Code(s): I73.9 - PERIPHERAL VASCULAR DISEASE, UNSPECIFIED Comment: Continue outpatient follow-up (9) GERD (gastroesophageal reflux disease) Code(s): K21.9 - GASTRO-ESOPHAGEAL REFLUX DISEASE WITHOUT ESOPHAGITIS Comment : Stable Not on medication (10) Sacral ulcer Code(s): L98.429 - NON-PRESSURE CHRONIC ULCER OF BACK WITH UNSPECIFIED SEVERITY Comment: Previously documented stage III ulcer on admission Improving Continue mepilex (11) DVT prophylaxis Code(s): [id number] - Comment: SQ heparin (12) Full code status Code(s): Z78.9 - OTHER SPECIFIED HEALTH STATUS Status and Disposition: Inpatient. D/c to [facility]
--- NOTE | 2016-08-04 13:41 | DS ---
CC: Kelly Dugan NP * DATE OF ADMISSION: 07/26/2016. DATE OF DISCHARGE: 08/04/2016. PROVIDER: Burton Hernandez NP. ATTENDING PHYSICIAN: Dr. Chantell Lopez *(as dictated by Burton Hernandez NP). CONSULTING PHYSICIAN: Dr. Angelica Conroy, Pulmonology; Dr. Vinayak Veloz, Infectious Disease; and Dr. Rolando Mckeon, [place]. PRIMARY DISCHARGE DIAGNOSES: 1. Acute hypoxic respiratory failure. 2. Pneumonia, suspected aspiration component. 3. ESBL E. coli urinary tract infection. 4. CHF exacerbation. 5. Hypertension. SECONDARY DIAGNOSES: 1. Multiple sclerosis. 2. Peripheral vascular disease. 3. History of sacral ulcer. 4. GERD. MEDICATIONS AT DISCHARGE: 1. Hydrocodone/acetaminophen 5/325 one tab q.4 hours prn. 2. Loratadine 10 mg daily. 3. Acetaminophen 1000 mg t.i.d. prn. 4. Folic acid 1 mg daily except for Mondays. 5. Zolpidem 5 mg at bedtime. 6. Potassium Chloride 20 mEq b.i.d. 7. Methotrexate 5 mg weekly. 8. Tamsulosin 0.4 mg at bedtime. 9. Mirtazapine 15 mg at bedtime. 10. MiraLax 17 gm daily. 11. Bupropion XL 150 mg q.a.m. 12. Senokot S two tabs b.i.d. 13. Baclofen 20 mg b.i.d. 14. Amlodipine 5 mg daily. 15. Spiriva one capsule inhaled daily. 16. Saline nasal spray one spray both nares q.2 hours prn. 17. Lisinopril 5 mg daily. 18. Augmentin 500 mg b.i.d. 19. Furosemide 20 mg daily prn. DIAGNOSTIC TESTING DURING THIS ADMISSION: 1. Transthoracic echocardiogram from 07/26/2016: Conclusions: Mild to moderate concentric left ventricular hypertrophy is observed. Left ventricular systolic function is at the lower limits of normal. The estimated ejection fraction is 50 to 55 percent. The right ventricular chamber size and systolic function are within normal limits. There is a trace of aortic regurgitation. There is no evidence of aortic stenosis. There is a trace of mitral regurgitation. There is mild tricuspid regurgitation. There is evidence of mild to moderate pulmonary hypertension. There is no significant pericardial effusion. 2. Chest x-ray from 07/27/2016: Impression: Large left pleural effusion with left lung atelectasis versus consolidation. 3. Chest ultrasound from 07/27/2016: Impression: Left lung consolidation and trace left pleural effusion. 4. CT chest from 07/28/2016: Impression: Mixed atelectasis and consolidation of the left upper and lower lobes. Segmental consolidation of the right lung base. Small bilateral pleural effusions. Elevation of the right hemidiaphragm. 5. Chest x-ray from 07/29/2016: Impression: Improved aeration of the left lung. Bibasilar consolidation, progressed on the right. Small bilateral pleural effusions. 6. Chest x-ray from 07/30/2016: Impression: Low lung volumes. Improved aeration of the lung bases bilaterally with minimal linear atelectasis of the lung bases bilaterally. 7. Chest x-ray from 07/31/2016: Impression: Low lung volumes with patchy atelectasis versus consolidation of left lung base. HOSPITAL COURSE OF STAY: For full details, please refer to the history and physical and medical record as the patient has had an extended length of stay. In summary, Ms. Anglin is a 60-year-old female with a past medical history significant for severe multiple sclerosis who was admitted with concern for developing pneumonia and acute hypoxemic respiratory failure. The patient initially presented with increasing dyspnea while at [facility] over a week's duration. She was treated at [facility] with Levaquin without improvement. The patient also noted that she has lower extremity edema and increased tightness in her pants with a nonproductive cough. When she reached the ER, she was severely hypertensive and was diuresed with IV Lasix and was given nitro ointment for blood pressure control. The patient also reported persistent chest pain and dyspnea and it was thought initially that she may also have a CHF exacerbation, but as her stay progressed, the patient was found to have significant worsening shortness of breath with CT scan evidence of a left lower lung collapse secondary to mucus plug or aspiration pneumonia. She was started on chest physical therapy, bronchodilators and Mucomyst. She was seen in consultation by Pulmonology. It was felt that she would benefit also from chest percussion therapy and perhaps a cough assist device which unfortunately were we unable to arrange for delivery and use at [facility]. The patient did improve with MetaNeb's and the aforementioned therapies. She has been continued on antibiotics and was treated with Ceftriaxone, Azithromycin , then switched to Meropenem given that the patient also grew a urine culture that was positive for ESBL E. coli. The patient was seen in consultation by Dr. Veloz of Infectious Disease on 08/02/2016. He recommended changing Meropenem to Zosyn. We did continue her on Zosyn for an additional two days in order to give her seven days of IV therapy prior to discharge. She is also going to be discharged back to [facility] on an additional five days of p.o. Augmentin. During her last few days here in the hospital, the patient has had no acute complaints. We have been able to wean her down on her oxygen. She is currently on 3 liters nasal canal. Per discussion with [facility], it appears that the patient does intermittently use oxygen at the facility and she can continue to be weaned down while at [facility]. The patient was able to have her Nava catheter discontinued and is voiding appropriately. She appears to be at her baseline functional status per her family and the patient's report. No other acute concerns at this time. The patient is ordered continued chest physical therapy while at [facility] in order to help the patient continue to clear secretions and try to encourage better lung function. In regards to her CHF exacerbation, the patient has continued on furosemide. This was made prn for use at [facility] due to concern for dehydration with daily use. Patient was advised about diet and adhering to low sodium diet. The patient was also noted to be hypertensive during her stay here. She was started on Amlodipine and Lisinopril and has had good blood pressure control with these medications. The patient is also being continued on her Spiriva in the outpatient setting in order to best allow her to achieve better lung recovery and capacity. Plan of care was reviewed with patient's son, Vj. CONCERNS AT DISCHARGE: Ms. Anglin will be discharged to [facility] on 2016. She should follow-up with the facility provider and nurse practitioner Kelly Dugan. The patient was also scheduled to follow-up with Dr. Conroy. DIET: Heart-healthy diet. ACTIVITY: As tolerated. CONDITION: Improved, stable. DISPOSITION: To [facility]. TIME SPENT: Time spent on this discharge was approximately 45 minutes. Again, this is only a brief summary of the patient's hospital course of stay. For full details, please refer to the full medical record. If you have any further questions or need further assistance, please feel free to contact me at . Again, this was an extended hospitalization and further information is available in the medical record. BURTON HERNANDEZ NP [id number]/[facility] #: [id number] JOSE LUIS
[2016-08-04] MEDS: Folic Acid TAB* 1 MG PO SCH (14:07)
[2016-08-04] MEDS: HYDROcodone/ACETAMIN 5-325 MG* 1 TAB PO PRN (14:15)
== END 2016-08-04 14:35 | DRG 177 ==
LOC: ED 09:45 → MEDTELE 13:40 → ICU 07-29 14:20 → MEDTELE 07-31 15:14 → MED 08-03 19:50
PROVIDERS: ADMIT Internal Medicine; ATTEND Hospitalist
DX: J69.0 Pneumonitis due to inhalation of food and vomit (principal); J96.01 Acute respiratory failure with hypoxia; I50.33 Acute on chronic diastolic (congestive) heart failure; L89.153 Pressure ulcer of sacral region, stage 3; R78.81 Bacteremia; R53.2 Functional quadriplegia; I11.0 Hypertensive heart disease with heart failure; I95.9 Hypotension, unspecified; I27.2 Other secondary pulmonary hypertension; N39.0 Urinary tract infection, site not specified; G35 Multiple sclerosis; F32.9 Major depressive disorder, single episode, unspecified; I73.9 Peripheral vascular disease, unspecified; K21.9 Gastro-esophageal reflux disease without esophagitis; K59.09 Other constipation; G89.29 Other chronic pain; M79.604 Pain in right leg; F41.9 Anxiety disorder, unspecified; R40.2412 Glasgow coma scale score 13-15, at arrival to emergency department; Z66 Do not resuscitate; R41.0 Disorientation, unspecified; J44.9 Chronic obstructive pulmonary disease, unspecified; M19.90 Unspecified osteoarthritis, unspecified site; M41.9 Scoliosis, unspecified; B96.20 Unspecified Escherichia coli [E. coli] as the cause of diseases classified elsewhere; I08.3 Combined rheumatic disorders of mitral, aortic and tricuspid valves; Z91.040 Latex allergy status; Z87.440 Personal history of urinary (tract) infections; Z98.42 Cataract extraction status, left eye; Z98.41 Cataract extraction status, right eye; Z87.891 Personal history of nicotine dependence; Z98.51 Tubal ligation status; Z88.8 Allergy status to other drugs, medicaments and biological substances; Z99.3 Dependence on wheelchair; Z83.2 Family history of diseases of the blood and blood-forming organs and certain disorders involving the immune mechanism; Z74.01 Bed confinement status
CPT/HCPCS: 36415; 36600; 71010; 71020; 71250; 76604; 80048; 80053; 81003; 81015; 82553; 82803; 83605; 83880; 84145; 84484; 85025; 85379; 85610; 86140; 87040; 87077; 87086; 87150; 87186; 87205; 87641; 93005; 93306; 94640; 94667; 94668; 94760; A9270-GY; J0456; J0690; J0696; J1644; J1940; J2185; J2270; J2405; J2543

== ENCOUNTER 2017-01-07 00:16 | Inpatient (IN) | payer MEDICARE, MEDICAID ==
[2017-01-07] MEDS ORDERED: NS 0.9% 1000 ML*IV.FLUID IV ONE (00:47)
[2017-01-07] MEDS ORDERED: Acetaminophen TAB* 325 MG PO ONE (00:49)
[2017-01-07] MEDS ORDERED: Ondansetron INJ* 2 MG/ML VIAL IV ONE (00:50)
[2017-01-07 01:11] LABS: Hematocrit 36 % (35-47); Hemoglobin 11.6 g/dl (12.0-16.0); Mean Corpuscular HGB Conc 32 g/dl (31-36); Mean Corpuscular Hemoglobin 32 pg (27-31); Mean Corpuscular Volume 99 fL (80-97); Mean Platelet Volume 7 um3 (7.4-10.4); Red Blood Count 3.65 10^6/ul (4.0-5.4); Red Cell Distribution Width 14 % (10.5-15); White Blood Count 14.5 10^3/ul (3.5-10.8)
[2017-01-07 01:18] LABS: Urine Bacteria 2+ (Absent); Urine Bilirubin Negative (Negative); Urine Glucose Negative (Negative); Urine Nitrite Positive (Negative)
[2017-01-07 01:25] LABS: Albumin 3.8 g/dL (3.2-5.2); BUN/Creatinine Ratio 29.9 (8-20); C Reactive Protein 125.39 mg/L (< 5.00); Calcium 9.2 mg/dL (8.6-10.3); EGFR African American 98.3 (>60); EGFR Non-African American 76.5 (>60); Globulin 3.7 g/dL (2-4); Potassium 4.5 mmol/L (3.5-5.0); Total Bilirubin 0.5 mg/dL (0.2-1.0); Total Protein 7.5 g/dL (6.4-8.9)
[2017-01-07 01:27] LABS: Troponin I 0.01 ng/mL (<0.04)
[2017-01-07] MEDS ORDERED: Levofloxacin 750 MG IVPREMIX(* 750 MG/150 ML BAG IVPB ONE (01:29)
--- NOTE | 2017-01-07 01:37 | ED ---
Symone Brower Alfonso, scribed for Sanya Duarte MD on 01/07/17 at 0049 . Complex/Multi-Sys Presentation - HPI Summary HPI Summary: This patient is a 61 year old F presenting to [facility] with a chief complaint of N /V/D since yesterday. The patient rates the pain 0/10 in severity. Symptoms aggravated and alleviated by nothing. Patient reports fever. - History Of Current Complaint Chief Complaint: EDNauseaVomitDiarrh Hx Obtained From: Patient Onset/Duration: Gradual Onset, Lasting Days - yesterday, Still Present Timing: Constant Aggravating Factor(s): nothing Alleviating Factor(s): nothing Associated Signs And Symptoms: Positive: Fever, Other - N/V/D - Allergies/Home Medications Allergies/Adverse Reactions: Allergies Allergy/AdvReac Type Severity Reaction Status Date / Time Latex Allergy Unknown Verified 07/02/15 15:24 Reaction Details PMH/Surg Hx/FS Hx/Imm Hx Endocrine/Hematology History: Denies: Hx Anticoagulant Therapy, Hx Diabetes, Hx Thyroid Disease Cardiovascular History: Reports: Hx Congestive Heart Failure - 08/07 admission, Hx Hypertension - possible, Other Cardiovascular Problems/Disorders - PVD Denies: Hx Pacemaker/ICD Respiratory History: Reports: Hx Chronic Obstructive Pulmonary Disease (COPD) - possible, Hx Pneumonia Denies: Hx Asthma, Other Respiratory Problems/Disorders GI History: Reports: Hx Gastroesophageal Reflux Disease, Other GI Disorders - chronic constipation History: Reports: Other Problems/Disorders - frequent UTI Denies: Hx Dialysis, Hx Renal Disease Musculoskeletal History: Reports: Other Musculoskeletal History - chronic right leg pain, contractures d/t MS Comment Only: Hx Arthritis - OSTEO Sensory History: Reports: Hx Cataracts, Hx Contacts or Glasses Denies: Hx Hearing Aid Opthamlomology History: Reports: Hx Cataracts, Hx Contacts or Glasses Neurological History: Reports: Other Neuro Impairments/Disorders - ADVANCED MS, QUADRAPALEGIC Denies: Hx Dementia, Hx Seizures Psychiatric History: Reports: Hx Anxiety, Hx Depression, Hx Substance Abuse, Other Psychiatric Issues/Disorders - insomnia Denies: Hx Panic Disorder - Surgical History Surgery Procedure, Year, and Place: 3 skin grafts on right arm; URETERAL STENT, [facility] 2009, [facility], RIGHT ILIAC ARTERY; cataract repair Hx Anesthesia Reactions: No - Immunization History Date of Tetanus Vaccine: unknown Date of Influenza Vaccine: UTD Infectious Disease History: No Infectious Disease History: Denies: Hx Hepatitis, Hx Human Immunodeficiency Virus (HIV), Traveled Outside the [place] in Last 30 Days - Family History Known Family History: Positive: Other - Negative malignant hyperthermia, negative anesthesia reaction - Social History Alcohol Use: none, hx abuse 10 years ago Hx Substance Use: No Substance Use Type: Reports: None Hx Tobacco Use: Yes Smoking Status (MU): Former Smoker Review of Systems Positive: Fever Positive: Vomiting, Diarrhea, Nausea All Other Systems Reviewed And Are Negative: Yes Physical Exam - Summary Physical Exam Summary: VITAL SIGNS: Reviewed. GENERAL: Patient is a well-developed and nourished female who is lying comfortable in the stretcher. Patient is not in any acute respiratory distress. HEAD AND FACE: No signs of trauma. No ecchymosis, hematomas or skull depressions. No sinus tenderness. EYES: PERRLA, EOMI x 2, No injected conjunctiva, no nystagmus. EARS: Hearing grossly intact. Ear canals and tympanic membranes are within normal limits. MOUTH: Oropharynx within normal limits. NECK: Supple, trachea is midline, no adenopathy, no JVD, no carotid bruit, no c- spine tenderness, neck with full ROM. CHEST: Symmetric, no tenderness at palpation LUNGS: Clear to auscultation bilaterally. No wheezing or crackles. Decreased breath sounds. CVS: Regular rate and rhythm, S1 and S2 present, no murmurs or gallops appreciated. ABDOMEN: Soft, non-tender. Abdomen distention. No rebound no guarding, and no masses palpated. Bowel sounds are hypoactive. EXTREMITIES: No edema, no cyanosis or clubbing. Quadriplegic with muscle atrophy in all extremities. NEURO: Alert and oriented x 3. No acute neurological deficits. Speech is normal and follows commands. SKIN: Dry and warm Triage Information Reviewed: Yes Vital Signs On Initial Exam: Initial Vitals Temp Pulse Resp BP Pulse Ox 99.5 F 94 16 123/64 100 01/07/17 00:38 01/07/17 00:38 01/07/17 00:38 01/07/17 00:38 01/07/17 00:38 Vital Signs Reviewed: Yes - [place] Coma Scale Coma Scale Total: 15 Diagnostics - Vital Signs Vital Signs Temp Pulse Resp BP Pulse Ox 01/07/17 00:38 99.5 F 94 16 123/64 100 - Laboratory Result Diagrams: 01/07/17 00:25 01/07/17 00:25 Lab Statement: Any lab studies that have been ordered have been reviewed, and results considered in the medical decision making process. - Radiology CXR Radiology Interpretation Completed By: ED Physician - NAD, Radiologist - Pending at this time. - EKG 0130 Cardiac Rate: NL EKG Rhythm: Sinus Rhythm - BPM 90 ST Segment: Normal Ectopy: None EKG Interpretation: Nml axis. Complex Multi-Symp Course/Dx Assessment/Plan: This patient is a 61 year old F presenting to [facility] with a chief complaint of N/V/D since yesterday. The patient rates the pain 0/10 in severity. Symptoms aggravated and alleviated by nothing. Patient reports fever. An EKG reveals NSR. CXR reveals NAD. Patient will be admitted to [facility] with follow up from Dr. Lopez (hospitalist). The patient is agreeable with this plan. - Diagnoses Provider Diagnoses: Sepsis due to urinary tract infection - Physician Notifications Discussed Care Of Patient With: Chantell Lopez Time Discussed With Above Provider: 01:33 Instructed by Provider To: Other - Consulted Dr. Lopez (hospitalist) who agrees to admit. Discharge - Discharge Plan Condition: Stable Disposition: ADMITTED TO [facility] Referrals: No Primary Care Phys,NOPCP [Primary Care Provider] - The documentation as recorded by the Symone hung Alfonso accurately reflects the service I personally performed and the decisions made by me, Sanya Duarte MD.
[2017-01-07] MEDS ORDERED: Metoclopramide IV* 5 MG/ML 2 ML VIAL IV PRN (02:16)
[2017-01-07] MEDS: NS 0.9% 1000 ML* 1,000 ML IV SCH ×4 (04:23→23:18)
[2017-01-07] MEDS: Meropenem 1 GM PREMIX(*) 1 GM/50 ML BAG IV SCH ×3 (04:23→18:21)
--- NOTE | 2017-01-07 05:24 | HP ---
CC: Provider at [facility], [place] * HISTORY AND PHYSICAL: DATE OF ADMISSION: 01/07/17 PRIMARY CARE PROVIDER: [facility] [place]. CHIEF COMPLAINT: Vomiting. HISTORY OF PRESENT ILLNESS: Ms. Anglin is a 61-year-old female with a history of multiple sclerosis, who is essentially bed or wheelchair bound, who presents to emergency room with complaints of vomiting for the last couple of days. The patient states that the vomiting has been her only symptom. While she resides at [facility], she states she has not been around anybody who has had any GI illness. The patient also admits to fevers and chills over the last couple of days as well as poor appetite. She denies any abdominal pain. She did state that her flanks have hurt some. She denies any dysuria. She denies diarrhea. In the emergency room, the patient was found to have an abnormal urinalysis consistent with urinary tract infection, vital signs consistent with sepsis, therefore the hospitalist service was asked to admit the patient. PAST MEDICAL HISTORY: 1. Multiple sclerosis. 2. Peripheral arterial disease. 3. History of sacral ulcer - currently healed. 4. GERD. PAST SURGICAL HISTORY: 1. Skin graft to the right lower extremity. 2. Tubal ligation. 3. Left cataract extraction. ALLERGIES: No known drug allergies. MEDICATIONS: 1. Oxycodone 5 mg p.o. q.4 hours p.r.n. pain. 2. MiraLAX 17 g p.o. daily. 3. Combivent Respimat 1 puff inhaled 4 times daily. 4. Flomax 0.4 mg p.o. q.h.s. 5. Remeron 15 mg p.o. q.h.s. 6. Folic acid 1 mg p.o. all days of the week except for Tuesday. 7. Tylenol 1000 mg p.o. t.i.d. 8. Lisinopril 5 mg p.o. daily. 9. Lasix 20 mg p.o. Tuesday, Tuesday, Tuesday. 10. Amlodipine 5 mg p.o. daily. 11. Senokot-S 2 tabs p.o. b.i.d. 12. Wellbutrin XL 150 mg p.o. daily. 13. Baclofen 20 mg p.o. b.i.d. 14. Methotrexate 5 mg p.o. q. Tuesday. 15. Loratadine 10 mg p.o. daily. FAMILY HISTORY: Mom is . She had history of lupus and small cell lung cancer. Dad's history is unknown. SOCIAL HISTORY: The patient is a former smoker, quitting approximately 10 years ago. She does not drink alcohol. She previously worked in [employer]. She is . She has 2 children. Her daughter, Zoe, is her healthcare proxy. REVIEW OF SYSTEMS: A complete 11-system review of systems is obtained, pertinent positives and negatives are as per HPI, and otherwise negative physical exam. PHYSICAL EXAMINATION GENERAL: The patient is a well-developed middle-aged female, lying in the bed, in no acute distress. VITAL SIGNS: Blood pressure 120/61, pulse 88, respirations 16, temp 100.4, O2 sat 99% on 2 L. HEENT: Pupils are equal. They are round. Extraocular muscles are intact. Oropharynx is clear. Oral mucosa is dry. There is no submandibular, cervical, or supraclavicular adenopathy. Thyroid is not enlarged. No thyroid nodules are noted. PULMONARY: Lungs are clear to auscultation anteriorly. CARDIAC: Normal S1, S2. Regular rate and rhythm. I do not appreciate any murmurs. ABDOMEN: Bowel sounds present. Abdomen is soft, nontender, nondistended. MUSCULOSKELETAL: There is no cyanosis or clubbing of the digits. The patient has no movement in the right upper extremity, bilateral lower extremities, and only minimal movement in the left upper extremity. NEURO: Cranial nerves II through XII appear to be grossly intact. The patient , again, has no movement or strength of the right upper extremity and bilateral lower extremities. The patient is contractured in the left upper extremity with minimal movement. PSYCH: The patient is alert. She is oriented x3. Affect is appropriate. SKIN: Warm and dry. There are no rashes. There is evidence of prior skin grafting to the right upper extremity. The patient has an area of healed ulceration on her sacrum. DIAGNOSTIC STUDIES/LAB DATA: WBC 14.5, hemoglobin 11.6, hematocrit 36, platelets 413. INR is 0.96. Sodium 134, potassium 4.5, chloride 102, CO2 25, BUN 23, creatinine 0.77, glucose 157, lactic acid 0.8, calcium 9.2. Bilirubin 0.5, AST 14, ALT 11, alk phos 166. Troponin 0.01. CRP 125.39. Albumin 3.8. Urinalysis reveals turbid urine with specific gravity of 1.014, 2+ protein, 1+ blood, positive nitrites, 3+ leukocyte esterase, 3+ wbc, 3+ wbc and 2+ bacteria. ASSESSMENT AND PLAN: Ms. Anglin is a 61-year-old female with a history of multiple sclerosis, who presents to the emergency room after having couple of days of vomiting and was found to have sepsis (based on sepsis-2 criteria) secondary to a urinary tract infection. 1. Sepsis secondary to urinary tract infection. The patient has received 1630 mL of normal saline in the emergency room. She will continue on normal saline at 125 mL per hour going forward. Her urinary tract infection will be treated. 2. Urinary tract infection. The patient has previously grown ESBL e. coli. She received a dose of Levaquin in the emergency room, however, she is resistant to this. We will treat her with meropenem 1 g IV q.8 hours. I will go ahead and get a CT scan of the abdomen and pelvis to rule out pyelonephritis versus obstruction. This patient does complain of mild flank pain. 3. Multiple sclerosis. We will continue methotrexate weekly and baclofen for her spasm/contractures. 4. Peripheral arterial disease. . 5. Hypertension. The patient's blood pressure is under good control. She will be maintained on her usual doses of amlodipine and lisinopril. 6. Chronic obstructive pulmonary disease. Continue inhaler therapy. 7. Depression. Continue Wellbutrin XL and Remeron. 8. DVT prophylaxis: According to the Adult Thrombosis Prophylaxis Risk Factor Assessment Guide, the patient has a total risk factor score of 2 making her a moderate risk. She will be placed on heparin 5000 units subcutaneous q.8 hours. 9. Code status is DNR. TIME SPENT: Sixty-five minutes was spent admitting this patient. [id number]/[facility] #: [id number] JOSE LUIS
[2017-01-07] MEDS: Heparin VIAL(*) 5000 UNITS/ML VIAL (FIVE THOUSAND) SUBCUT SCH ×3 (06:36→21:07)
[2017-01-07] MEDS: Folic Acid TAB* 1 MG PO SCH (06:36)
--- NOTE | 2017-01-07 07:30 | RAD ---
INDICATION: Fever COMPARISON: Similar chest x-ray dated July 31, 2016 TECHNIQUE: Single AP portable view of the chest was obtained. FINDINGS: Image quality is compromised due to the relative inferiority of a portable chest x-ray. The heart and mediastinum exhibit normal size and contour. Again seen is calcified atherosclerosis overlying the arch of the aorta. Evaluation of the lungs is limited due to poor patient positioning. There is likely minimal inspiratory effort. There is persistent elevation of the right hemidiaphragm relative to the left. Density is seen obscuring the left hemidiaphragm but overall aeration of both lungs is improved when compared to the July 31, 2016 chest x-ray. Visualized bones are normal for the patient's age. IMPRESSION: Density of securing the left hemidiaphragm could represent consolidation, atelectasis or pleural effusion. Overall the aeration of the lungs appears slightly improved when compared to the July 31, 2016 chest x-ray.
--- NOTE | 2017-01-07 07:39 | RAD ---
CLINICAL HISTORY: Nausea, vomiting and diarrhea COMPARISON: Most recent CT of the abdomen and pelvis is dated April 17, 2015 TECHNIQUE: Noncontrast CT examination of the abdomen and pelvis from the lung bases through the initial tuberosities. FINDINGS: VISUALIZED LUNG BASES: There is linear density in her bronchograms at the bilateral lung bases with very small pleural effusions. The lungs are otherwise adequately aerated. ABDOMEN AND PELVIS: Evaluation of the solid organs and vasculature is limited without intravenous contrast. The liver, spleen, pancreas and adrenal glands are grossly normal in appearance. The gallbladder is normal. The left kidney is atrophic relative to the right. There is a nonobstructing punctate calcification in the right kidney. At the left renal pelvis there is a calcification measuring just under 7 mm in greatest axial dimension (image 42) that has progressed slightly when compared to the most recent CT examination. Despite this there is no definite left-sided hydronephrosis. Evaluation of the gastrointestinal tract is limited without oral contrast.The patient's normal appendix is identified in the right lower quadrant. The small bowel is not pathologically distended. Similar to the prior CT examination the rectum is impacted with stool and distended measuring 9.2 cm in diameter a slight reduction from 10.9 cm on the previous CT examination. There is no definite bowel wall thickening or acute pericolonic inflammatory change. A mildly enlarged pericaval lymph node measuring 1.3 cm in short axis diameter is noted (image 58, coronal images) that is similar in appearance to the prior CT examination. There is coarse atherosclerotic calcification of the abdominal aorta extending into the bilateral iliac arteries. There appears to be a right iliac stent. Multilevel degenerative changes of the thoracic and lumbar spine includes loss of intervertebral disc height. There is a chronic appearing mild compression deformity of the L4, L5 and L3 vertebral bodies. IMPRESSION: 1. A 7 mm stone at the left renal pelvis has progressed slightly from a collecting system position on the April 17, 2015 CT examination. There is, however, no significant left-sided hydronephrosis or acute perinephric stranding. Please correlate to clinical signs and symptoms of urinary obstruction and/or pyelonephritis. 2. Distended and stool-filled rectum, slightly smaller when compared to the previous CT examination. 3. Additional chronic, degenerative and iatrogenic findings described in the body the report that is not changed substantially since the prior CT examination.
--- NOTE | 2017-01-07 07:52 | PN ---
Subjective Date of Service: 01/07/17 Interval History: Patient seen this morning. Denies any pain or SOB at this time. Says she came in because she had two days of fevers (up to 101F) and N/V. Usually is able to tell when she is urinating but not always with the MS. Family History: Unchanged from Admission Social History: Unchanged from Admission Past Medical History: Unchanged from Admission Objective Active Medications: Albuterol/Ipratropium (Combivent Respimat(Nf)) 1 puff INH QID YANNICK Amlodipine Besylate (Norvasc Tab*) 5 mg PO DAILY YANNICK Baclofen (Lioresal Tab*) 20 mg PO BID YANNICK Bupropion HCl (Wellbutrin Xl *) 150 mg PO QAM YANNICK Cetirizine HCl (Zyrtec*) 10 mg PO DAILY YANNICK Docusate Sodium (Colace Cap*) 200 mg PO BID YANNICK Folic Acid (Folvite Tab*) 1 mg PO SUMOTUTHFRSA YANNICK Heparin Sodium (Porcine) (Heparin Vial(*)) 5,000 units SUBCUT Q8HR YANNICK Meropenem (Merrem 1 Gm Premix(*)) 1 gm in 50 mls @ 100 mls/hr IV Q8H YANNICK Sodium Chloride (Ns 0.9% 1000 Ml*) 1,000 mls @ 125 mls/hr IV PER RATE YANNICK Lisinopril (Prinivil Tab*) 5 mg PO DAILY YANNICK Methotrexate (Methotrexate Tab*) 5 mg PO We@0900 YANNICK Metoclopramide HCl (Reglan Iv*) 10 mg IV Q6H PRN Mirtazapine (Remeron Tab*) 15 mg PO BEDTIME YANNICK Ondansetron HCl (Zofran Inj*) 4 mg IV Q6H PRN Oxycodone HCl (Roxycodone Tab*) 5 mg PO Q4H PRN Polyethylene Glycol/Electrolytes (Miralax*) 17 gm PO DAILY YANNICK Senna (Senokot Tab*) 1 tab PO BID YANNICK Tamsulosin HCl (Flomax Cap*) 0.4 mg PO BEDTIME YANNICK Vital Signs 01/07/17 01/07/17 02:52 03:16 Temperature 98.1 F 99.5 F Pulse Rate 90 95 Respiratory 22 16 Rate Blood Pressure 98/64 123/64 (mmHg) O2 Sat by Pulse 99 95 Oximetry Oxygen Devices in Use Now: Nasal Cannula Appearance: Middle-aged, F, laying in bed in NAD Eyes: No Scleral Icterus Ears/Nose/Mouth/Throat: - - Dry MM Neck: NL Appearance and Movements; NL JVP Respiratory: Symmetrical Chest Expansion and Respiratory Effort, Clear to Auscultation Cardiovascular: - - Mild tachycardia, s1 and s2 present, no m/g/r Abdominal: NL Sounds; No Tenderness; No Distention Lymphatic: No Cervical Adenopathy Extremities: - - RLE edema to knee Neurological: Alert and Oriented x 3, - - LUE contracted Result Diagrams: 01/07/17 00:25 01/07/17 00:25 Microbiology and Other Data: Microbiology 01/07/17 05:00 Nasal Screen MRSA (PCR)(JAGUAR) - Final Nasal Mrsa Negative Assess/Plan/Problems-Billing Assessment: Sepsis 2/2 UTI in a 61 yo F with hx of MS, PAD, GERD - Patient Problems (1) Sepsis Current Visit: Yes Comment: 2/2 UTI. Patient has hx of ESBL organisms on UCx. UA shows signs of infection, will continue on Meropenem for now until UCx results. Continue NS at 125 cc/hr until this afternoon then can decrease to 10o cc/hr. Monitor CBC. No clear evidence of pyelo on exam or CT scan but will f/u final report. (2) Multiple sclerosis Current Visit: No Comment: Functionally quadriplegic, limited to motorized wheelchair. Continue home MTX next Wed and baclofen. (3) Depression Current Visit: Yes Comment: Continue Wellbutrin and Remeron (4) HTN (hypertension) Current Visit: No Comment: Continue lisinopril and amlodipine (5) Lower extremity edema Current Visit: Yes Comment: Hold PO Lasix for now (6) DVT prophylaxis Current Visit: No Comment: SQ heparin
[2017-01-07] MEDS ORDERED: Albuterol/Ipratropium RESP(NF) MDI (Combivent Respimat) INH SCH (09:00)
[2017-01-07] MEDS ORDERED: Lisinopril TAB* 5 MG PO SCH (09:00)
[2017-01-07] MEDS ORDERED: amLODIPine TAB* 5 MG PO SCH (09:00)
[2017-01-07] MEDS ORDERED: Senna/Docusate (NF) TAB PO SCH (09:00)
[2017-01-07] MEDS: Docusate CAP* 100 MG PO SCH ×2 (09:04→21:05)
[2017-01-07] MEDS: Senna TAB PO SCH ×2 (09:04→21:05)
[2017-01-07] MEDS: Polyethylene Glycol 3350* 17 GM PACKET PO SCH (09:04)
[2017-01-07] MEDS: BuPROPion XL* 150 MG TAB.XL PO SCH (09:12)
[2017-01-07] MEDS: Cetirizine* 10 MG TAB PO SCH (09:12)
[2017-01-07] MEDS: Baclofen TAB* 20 MG PO SCH ×2 (09:13→21:06)
[2017-01-07] MEDS: Acetaminophen TAB* 325 MG PO PRN ×2 (10:31→21:06)
[2017-01-07] MEDS: Albuterol/Ipratropium RESP(NF) MDI (Combivent Respimat) INH SCH ×3 (10:33→17:09)
[2017-01-07] MEDS: Mirtazapine TAB* 15 MG PO SCH (21:06)
[2017-01-07] MEDS: Tamsulosin CAP* 0.4 MG PO SCH (21:07)
[2017-01-08] MEDS: Meropenem 1 GM PREMIX(*) 1 GM/50 ML BAG IV SCH ×3 (04:00→18:21)
[2017-01-08] MEDS: oxyCODONE TAB* 5 MG TAB PO PRN ×2 (05:23→19:48)
[2017-01-08] MEDS: Acetaminophen TAB* 325 MG PO PRN ×3 (05:23→19:41)
[2017-01-08] MEDS: Folic Acid TAB* 1 MG PO SCH (05:23)
[2017-01-08] MEDS: Heparin VIAL(*) 5000 UNITS/ML VIAL (FIVE THOUSAND) SUBCUT SCH ×3 (05:24→21:20)
[2017-01-08] MEDS: Albuterol/Ipratropium RESP(NF) MDI (Combivent Respimat) INH SCH ×4 (07:33→19:18)
[2017-01-08] MEDS: Polyethylene Glycol 3350* 17 GM PACKET PO SCH (07:33)
[2017-01-08] MEDS: Senna TAB PO SCH ×2 (07:33→19:40)
[2017-01-08] MEDS: Docusate CAP* 100 MG PO SCH ×2 (07:33→19:39)
[2017-01-08 08:33] LABS: Hematocrit 25 % (35-47); Hemoglobin 8.2 g/dl (12.0-16.0); Mean Corpuscular HGB Conc 33 g/dl (31-36); Mean Corpuscular Hemoglobin 32 pg (27-31); Mean Corpuscular Volume 98 fL (80-97); Mean Platelet Volume 7 um3 (7.4-10.4); Red Blood Count 2.56 10^6/ul (4.0-5.4); Red Cell Distribution Width 14 % (10.5-15); White Blood Count 11.2 10^3/ul (3.5-10.8)
[2017-01-08 08:50] LABS: BUN/Creatinine Ratio 20.2 (8-20); Calcium 8.2 mg/dL (8.6-10.3); EGFR African American 88.9 (>60); EGFR Non-African American 69.2 (>60); Potassium 4.6 mmol/L (3.5-5.0)
[2017-01-08] MEDS: BuPROPion XL* 150 MG TAB.XL PO SCH (08:59)
[2017-01-08] MEDS: Baclofen TAB* 20 MG PO SCH ×2 (08:59→19:42)
[2017-01-08] MEDS: Cetirizine* 10 MG TAB PO SCH (09:00)
[2017-01-08] MEDS: NS 0.9% 1000 ML* 1,000 ML IV SCH ×2 (10:32→21:20)
[2017-01-08] MEDS ORDERED: Baclofen TAB* 20 MG PO PRN (12:08)
--- NOTE | 2017-01-08 12:16 | PN ---
Subjective Date of Service: 01/08/17 Interval History: Patient seen this morning. Reports intermittent fever/chills, sweating. Had some muscles spasms overnight. Has been urinating without issue, no dysuria. Appetite is OK but not eating a lot. Family History: Unchanged from Admission Social History: Unchanged from Admission Past Medical History: Unchanged from Admission Objective Active Medications: Acetaminophen (Tylenol Tab*) 650 mg PO Q4H PRN Albuterol/Ipratropium (Combivent Respimat(Nf)) 1 puff INH RT.QID YANNICK Baclofen (Lioresal Tab*) 20 mg PO BID YANNICK Baclofen (Lioresal Tab*) 20 mg PO TID PRN Bupropion HCl (Wellbutrin Xl *) 150 mg PO QAM YANNICK Cetirizine HCl (Zyrtec*) 10 mg PO DAILY YANNICK Docusate Sodium (Colace Cap*) 200 mg PO BID YANNICK Folic Acid (Folvite Tab*) 1 [facility] Heparin Sodium (Porcine) (Heparin Vial(*)) 5,000 units SUBCUT Q8HR YANNICK Meropenem (Merrem 1 Gm Premix(*)) 1 gm in 50 mls @ 100 mls/hr IV Q8H YANNICK Sodium Chloride (Ns 0.9% 1000 Ml*) 1,000 mls @ 100 mls/hr IV PER RATE YANNICK Methotrexate (Methotrexate Tab*) 5 mg PO We@0900 YANNICK Metoclopramide HCl (Reglan Iv*) 10 mg IV Q6H PRN Mirtazapine (Remeron Tab*) 15 mg PO BEDTIME YANNICK Ondansetron HCl (Zofran Inj*) 4 mg IV Q6H PRN Oxycodone HCl (Roxycodone Tab*) 5 mg PO Q4H PRN Polyethylene Glycol/Electrolytes (Miralax*) 17 gm PO DAILY YANNICK Senna (Senokot Tab*) 1 tab PO BID YANNICK Tamsulosin HCl (Flomax Cap*) 0.4 mg PO BEDTIME YANNICK Vital Signs 01/07/17 01/07/17 01/07/17 16:03 19:37 20:00 Temperature 99.1 F 99.4 F Pulse Rate 88 88 Respiratory 18 18 18 Rate Blood Pressure 106/50 108/49 (mmHg) O2 Sat by Pulse 88 95 98 Oximetry 01/07/17 01/08/17 01/08/17 23:46 03:48 05:23 Temperature 98.3 F 99.3 F Pulse Rate 84 97 Respiratory 18 18 18 Rate Blood Pressure 98/43 128/69 (mmHg) O2 Sat by Pulse 98 98 Oximetry 01/08/17 01/08/17 01/08/17 07:33 07:56 08:00 Temperature 100.8 F Pulse Rate 85 Respiratory 14 20 16 Rate Blood Pressure 102/38 (mmHg) O2 Sat by Pulse 94 94 Oximetry Oxygen Devices in Use Now: Nasal Cannula - 2L Appearance: Middle-aged, F, laying in bed in NAD Eyes: No Scleral Icterus Ears/Nose/Mouth/Throat: - - Dry MM Neck: NL Appearance and Movements; NL JVP Respiratory: Symmetrical Chest Expansion and Respiratory Effort, Clear to Auscultation Cardiovascular: NL Sounds; No Murmurs; No JVD, RRR Abdominal: - - Soft, mild distension, non-tender, BS+ Lymphatic: No Cervical Adenopathy Extremities: - - LLE edema (chronic) Neurological: Alert and Oriented x 3, - - LUE contracted, RUE atrophied Result Diagrams: 01/08/17 08:15 01/08/17 08:15 Assess/Plan/Problems-Billing Assessment: Sepsis 2/2 E. coli UTI and bacteremia in a 61 yo F with hx of MS, PAD, GERD - Patient Problems (1) Sepsis Current Visit: Yes Comment: 2/2 UTI, E. coli bacteremia. Patient has hx of ESBL organisms on UCx. Will continue on Meropenem for now until UCx results. Continue NS at 100 cc/hr. Monitor CBC. 7 mm stone in renal pelvis does not seem to be obstructing. (2) Multiple sclerosis Current Visit: No Comment: Functionally quadriplegic, limited to motorized wheelchair. Continue home MTX next Wed and baclofen. Will add additional prn baclofen for spasms. (3) Depression Current Visit: Yes Comment: Continue Wellbutrin and Remeron (4) HTN (hypertension) Current Visit: No Comment: Hold Lisinopril and Amlodipine as BPs have been soft. (5) Lower extremity edema Current Visit: Yes Comment: Hold PO Lasix for now (6) DVT prophylaxis Current Visit: No Comment: SQ heparin Status and Disposition: Inpatient for sepsis, UTI, bacteremia
[2017-01-08] MEDS: Mirtazapine TAB* 15 MG PO SCH (19:40)
[2017-01-08] MEDS: Tamsulosin CAP* 0.4 MG PO SCH (19:41)
[2017-01-09] MEDS: Meropenem 1 GM PREMIX(*) 1 GM/50 ML BAG IV SCH ×2 (02:48→10:35)
[2017-01-09] MEDS: Folic Acid TAB* 1 MG PO SCH (05:20)
[2017-01-09] MEDS: Heparin VIAL(*) 5000 UNITS/ML VIAL (FIVE THOUSAND) SUBCUT SCH ×3 (05:21→21:39)
[2017-01-09 06:31] LABS: Hematocrit 27 % (35-47); Hemoglobin 8.9 g/dl (12.0-16.0); Mean Corpuscular HGB Conc 33 g/dl (31-36); Mean Corpuscular Hemoglobin 32 pg (27-31); Mean Corpuscular Volume 98 fL (80-97); Mean Platelet Volume 7 um3 (7.4-10.4); Red Blood Count 2.74 10^6/ul (4.0-5.4); Red Cell Distribution Width 14 % (10.5-15); White Blood Count 6.4 10^3/ul (3.5-10.8)
[2017-01-09 06:42] LABS: BUN/Creatinine Ratio 18.9 (8-20); Calcium 8.5 mg/dL (8.6-10.3); EGFR Non-African American 80.1 (>60); Potassium 4.4 mmol/L (3.5-5.0)
[2017-01-09] MEDS: Ondansetron INJ* 2 MG/ML VIAL IV PRN ×2 (08:00→13:49)
[2017-01-09] MEDS: Senna TAB PO SCH ×2 (08:00→21:46)
[2017-01-09] MEDS: BuPROPion XL* 150 MG TAB.XL PO SCH (08:00)
[2017-01-09] MEDS: Docusate CAP* 100 MG PO SCH ×2 (08:00→21:46)
[2017-01-09] MEDS: Cetirizine* 10 MG TAB PO SCH (08:00)
[2017-01-09] MEDS: Baclofen TAB* 20 MG PO SCH ×2 (08:01→21:47)
[2017-01-09] MEDS: NS 0.9% 1000 ML* 1,000 ML IV SCH ×2 (08:01→21:02)
[2017-01-09] MEDS: Polyethylene Glycol 3350* 17 GM PACKET PO SCH (08:01)
[2017-01-09] MEDS: Albuterol/Ipratropium RESP(NF) MDI (Combivent Respimat) INH SCH ×4 (08:01→17:52)
[2017-01-09] MEDS: Acetaminophen TAB* 325 MG PO PRN (10:41)
--- NOTE | 2017-01-09 13:24 | PN ---
Subjective Date of Service: 01/09/17 Interval History: Patient seen this afternoon. Reports feeling a bit better today, still with some intermittent fevers but seem less frequent. Still not a great appetite. Spasms still present at times, denies pain elsewhere. Family History: Unchanged from Admission Social History: Unchanged from Admission Past Medical History: Unchanged from Admission Objective Active Medications: Acetaminophen (Tylenol Tab*) 650 mg PO Q4H PRN Albuterol/Ipratropium (Combivent Respimat(Nf)) 1 puff INH RT.QID YANNICK Baclofen (Lioresal Tab*) 20 mg PO BID YANNICK Baclofen (Lioresal Tab*) 20 mg PO TID PRN Bupropion HCl (Wellbutrin Xl *) 150 mg PO QAM YANNICK Cetirizine HCl (Zyrtec*) 10 mg PO DAILY YANNICK Docusate Sodium (Colace Cap*) 200 mg PO BID YANNICK Folic Acid (Folvite Tab*) 1 mg PO [facility]FRSA [facility] Heparin Sodium (Porcine) (Heparin Vial(*)) 5,000 units SUBCUT Q8HR [facility] Sodium Chloride (Ns 0.9% 1000 Ml*) 1,000 mls @ 100 mls/hr IV PER RATE YANNICK Ciprofloxacin/Dextrose (Cipro 400 Mg Ivpremix(*)) 400 mg in 200 mls @ 200 mls/ hr IVPB Q12H YANNICK Methotrexate (Methotrexate Tab*) 5 mg PO We@0900 YANNICK Metoclopramide HCl (Reglan Iv*) 10 mg IV Q6H PRN Mirtazapine (Remeron Tab*) 15 mg PO BEDTIME YANNICK Ondansetron HCl (Zofran Inj*) 4 mg IV Q6H PRN Oxycodone HCl (Roxycodone Tab*) 5 mg PO Q4H PRN Polyethylene Glycol/Electrolytes (Miralax*) 17 gm PO DAILY YANNICK Senna (Senokot Tab*) 1 tab PO BID YANNICK Tamsulosin HCl (Flomax Cap*) 0.4 mg PO BEDTIME [facility] Vital Signs 01/08/17 01/08/17 01/08/17 15:30 19:28 19:48 Temperature 98.9 F 100.7 F Pulse Rate 87 90 Respiratory 16 22 18 Rate Blood Pressure 95/48 122/58 (mmHg) O2 Sat by Pulse 96 97 Oximetry 1101/08/17 01/09/17 20:00 23:28 01:02 Temperature 99.3 F Pulse Rate 88 Respiratory 18 19 18 Rate Blood Pressure 109/43 (mmHg) O2 Sat by Pulse 97 Oximetry 01/09/17 01/09/17 01/09/17 03:59 07:51 08:00 Temperature 99.2 F 99.8 F Pulse Rate 94 85 Respiratory 21 20 18 Rate Blood Pressure 145/59 124/59 (mmHg) O2 Sat by Pulse 95 99 99 Oximetry 01/09/17 01/09/17 10:37 11:25 Temperature 99.5 F 98.9 F Pulse Rate 89 82 Respiratory 20 20 Rate Blood Pressure 130/63 98/48 (mmHg) O2 Sat by Pulse 99 96 Oximetry Oxygen Devices in Use Now: Nasal Cannula - 2L Appearance: Middle-aged, F, laying in bed in NAD Eyes: No Scleral Icterus Ears/Nose/Mouth/Throat: - - Dry MM Neck: NL Appearance and Movements; NL JVP Respiratory: Symmetrical Chest Expansion and Respiratory Effort, Clear to Auscultation Cardiovascular: NL Sounds; No Murmurs; No JVD, RRR Abdominal: NL Sounds; No Tenderness; No Distention Lymphatic: No Cervical Adenopathy Extremities: - - LLE edema (chronic) Neurological: - - LUE contracture, RUE atrophied Result Diagrams: 01/09/17 06:13 01/09/17 06:13 Assess/Plan/Problems-Billing Assessment: Sepsis 2/2 E. coli UTI and bacteremia in a 61 yo F with hx of MS, PAD, GERD - Patient Problems (1) Sepsis Current Visit: Yes Comment: 2/2 UTI, E. coli bacteremia. UCx growing non-ESBL E. Coli, will change to IV Cipro until fevers resolve for 24 hours. Continue NS at 100 cc/hr. 7 mm stone in renal pelvis does not seem to be obstructing. (2) Multiple sclerosis Current Visit: No Comment: Functionally quadriplegic, limited to motorized wheelchair. Continue home MTX next Wed and baclofen. Continue additional prn baclofen for spasms. (3) Depression Current Visit: Yes Comment: Continue Wellbutrin and Remeron (4) HTN (hypertension) Current Visit: No Comment: Hold Lisinopril and Amlodipine as BPs have been soft at times (5) Lower extremity edema Current Visit: Yes Comment: Hold PO Lasix for now (6) DVT prophylaxis Current Visit: No Comment: SQ heparin Status and Disposition: Inpatient for sepsis, UTI, bacteremia. Potential discharge 01/10
[2017-01-09] MEDS: Ciprofloxacin 400MG IVPREMIX(* 400 MG/200 ML BAG IVPB SCH (17:52)
[2017-01-09] MEDS: Tamsulosin CAP* 0.4 MG PO SCH (21:47)
[2017-01-09] MEDS: Mirtazapine TAB* 15 MG PO SCH (21:47)
[2017-01-10] MEDS: Folic Acid TAB* 1 MG PO SCH (02:33)
[2017-01-10] MEDS: Ciprofloxacin 400MG IVPREMIX(* 400 MG/200 ML BAG IVPB SCH (06:02)
[2017-01-10] MEDS: Heparin VIAL(*) 5000 UNITS/ML VIAL (FIVE THOUSAND) SUBCUT SCH (06:03)
[2017-01-10] MEDS: Ondansetron INJ* 2 MG/ML VIAL IV PRN (07:15)
[2017-01-10] MEDS: NS 0.9% 1000 ML* 1,000 ML IV SCH (07:18)
[2017-01-10] MEDS: Albuterol/Ipratropium RESP(NF) MDI (Combivent Respimat) INH SCH (08:47)
[2017-01-10] MEDS ORDERED: Albuterol/Ipratropium NEB.SOL* Albuterol 2.5 MG/Ipratropium 0.5 MG 3 ML INH PRN (08:51)
[2017-01-10] MEDS: Senna TAB PO SCH (09:00)
[2017-01-10] MEDS: Docusate CAP* 100 MG PO SCH (09:00)
[2017-01-10] MEDS: Cetirizine* 10 MG TAB PO SCH (09:01)
[2017-01-10] MEDS: Baclofen TAB* 20 MG PO SCH (09:01)
[2017-01-10] MEDS: Polyethylene Glycol 3350* 17 GM PACKET PO SCH (09:01)
[2017-01-10] MEDS: BuPROPion XL* 150 MG TAB.XL PO SCH (09:01)
[2017-01-10 09:10] VITALS: BP 119/60
--- NOTE | 2017-01-10 10:56 | DCNOTE ---
Patient seen this morning. Reports feeling well overall. Denies any pain, discomfort or SOB at this time. No fevers. Only complaint is returning to [facility]. On exam, RRR, s1 and s2 present, no m/g/r, lungs CTA in anterior cobos, abd soft, NTND, BS+, LLE edema (chronic). Plan to discharge to SNF today on oral ABx for total of 14 days. Awaiting SW input regarding possibility of d/c to other facilities, otherwise patient will go back to [facility].
--- NOTE | 2017-01-10 11:59 | DS ---
DATE OF ADMISSION: 01/07/2017. DATE OF DISCHARGE: 01/10/2017. PRINCIPAL DISCHARGE DIAGNOSIS: Sepsis secondary to urinary tract infection and E. coli bacteremia. SECONDARY DIAGNOSES: Multiple sclerosis, peripheral artery disease, history of sacral ulcer, GERD. DISCHARGE MEDICATION REGIMEN: 1. Ciprofloxacin 500 mg by mouth 2 times daily times 20 tablets. 2. Claritin 10 mg by mouth daily. 3. Methotrexate 5 mg by mouth every Tuesday. 4. Baclofen 20 mg by mouth 2 times daily. 5. Bupropion 150 mg by mouth daily. 6. Senna/Docusate two tablets by mouth 2 times daily. 7. Amlodipine 5 mg by mouth daily, to resume 01/12/2017. 8. Lasix 20 mg by mouth Tuesday, Tuesday and Tuesday. 9. Lisinopril 5 mg by mouth daily, to resume 01/12/2017. 10. Tylenol 1000 mg 3 times daily. 11. Folic acid 1 mg Tuesday, Tuesday, Tuesday, , Tuesday, and Tuesday. 12. Mirtazapine 50 mg by mouth at bedtime. 13. Flomax 0.4 mg by mouth at bedtime. 14. Combivent one puff inhaled 4 times daily. 15. MiraLax 17 gm by mouth daily. 16. Oxycodone 5 mg by mouth every 4 hours as needed for pain. STUDIES DONE DURING HOSPITALIZATION: 1. Chest x-ray: Impression: Density obscuring the left hemidiaphragm could represent consolidation , atelectasis or pleural effusion. Overall the aeration of lungs appeared slightly improved when com pared to 07/31/2016. 2. CT abdomen and pelvis without contrast: Impression: A 7 mm stone at the left renal pelvis has p rogressed slightly from a collecting system position on the April 17, 2015 CT examination. There i s no significant hydronephrosis or acute perinephric stranding. Distended and stool-filled rectum, s lightly smaller when compared to the previous CT examination. Additional chronic, degenerative and ia trogenic findings described in the body the report has not changed substantially since the prior CT. HISTORY OF PRESENT ILLNESS AND HOSPITAL SUMMARY: Please see the full history and physical by Dr. Fly Lopez for full details. Briefly, Ms. Anglin is a 61- year-old female with a past medical his tory as above who presented to the hospital with vomiting, fever and chills. The patient was found t o have a leukocytosis, a low grade fever, and a positive urinalysis. The patient was treated for sep sis, was resuscitated with IV fluids and started on Meropenem as the patient has a history of ESBL E. coli. The patient improved over the following days with antibiotics. Her cultures eventually grew E. coli that was not ESBL and was sensitive to Ciprofloxacin. She was changed to Ciprofloxacin and monitored in the hospital, and went 24 hours without a fever and was discharged to complete a total of 14 days of antibiotic therapy for her UTI and bacteremia. Her blood pressures were soft at times during the admission and her antihypertensives were held. They can be resumed on 01/12/2017. She w as slightly hypoxic at times during the hospitalization, likely due to some mild fluid overload. She will be resumed on her Lasix as an outpatient and can probably be weaned back to her previous levels with nocturnal oxygen at two liters. Total time spent on this discharge was 45 minutes. This is a summary of the hospitalization. Please see the full medical record for further details. [id number]/[facility] #: [id number]
[2017-01-12] MEDS ORDERED: Methotrexate TAB* 2.5 MG PO SCH (09:00)
== END 2017-01-10 14:15 | DRG 871 ==
LOC: ED 00:16 → MED 02:16
PROVIDERS: ADMIT Hospitalist; ATTEND Hospitalist
DX: A41.51 Sepsis due to Escherichia coli [E. coli] (principal); G82.50 Quadriplegia, unspecified; I11.0 Hypertensive heart disease with heart failure; I50.9 Heart failure, unspecified; Z66 Do not resuscitate; G35 Multiple sclerosis; N39.0 Urinary tract infection, site not specified; J44.9 Chronic obstructive pulmonary disease, unspecified; F32.9 Major depressive disorder, single episode, unspecified; K21.9 Gastro-esophageal reflux disease without esophagitis; I73.9 Peripheral vascular disease, unspecified; F41.9 Anxiety disorder, unspecified; K59.09 Other constipation; G89.29 Other chronic pain; M79.604 Pain in right leg; Z87.440 Personal history of urinary (tract) infections; Z98.42 Cataract extraction status, left eye; Z87.891 Personal history of nicotine dependence; Z99.3 Dependence on wheelchair; Z91.040 Latex allergy status; Z74.01 Bed confinement status; Z98.51 Tubal ligation status; Z80.1 Family history of malignant neoplasm of trachea, bronchus and lung
CPT/HCPCS: 36415; 71010; 74176; 80048; 80053; 81003; 81015; 83605; 84484; 85025; 85610; 85730; 86140; 87040; 87077; 87086; 87186; 87205; 87641; 93005; A9270-GY; J0744; J1644; J2185; J2405

== ENCOUNTER 2017-03-18 08:31 | Inpatient (IN) | payer MEDICARE, MEDICAID ==
[2017-03-18] MEDS ORDERED: NS 0.9% 1000 ML* 1,000 ML IV ONE ×2 (08:39→11:23)
[2017-03-18] MEDS ORDERED: cefTRIAXone(*) 1 GM in NS 0.9% 50 ML* 50 ML IVPB ONE (08:39)
--- NOTE | 2017-03-18 09:05 | RAD ---
HISTORY: Shortness of breath COMPARISONS: January 07, 2017 VIEWS: 1: frontal portable view of the chest at 8:55 AM. The patient is obliqued to the left. FINDINGS: LINES AND TUBES: None. CARDIOMEDIASTINAL SILHOUETTE: The cardiomediastinal silhouette is normal for portable technique and obliquity. PLEURA: The costophrenic angles are sharp. No pleural abnormalities are noted. LUNG PARENCHYMA: The lung volumes are low. The lungs are clear. ABDOMEN: The upper abdomen is clear. There is no subphrenic gas. BONES AND SOFT TISSUES: No bone or soft tissue abnormalities are noted. IMPRESSION: NO ACTIVE CARDIOPULMONARY DISEASE.
[2017-03-18 09:35] LABS: EGFR Non-African American 51.2 (>60)
[2017-03-18 09:49] LABS: Hematocrit 35 % (35-47); Hemoglobin 11.3 g/dl (12.0-16.0); Mean Corpuscular HGB Conc 32 g/dl (31-36); Mean Corpuscular Hemoglobin 33 pg (27-31); Mean Corpuscular Volume 102 fL (80-97); Red Blood Count 3.46 10^6/ul (4.0-5.4); Red Cell Distribution Width 16 % (10.5-15); White Blood Count 8.7 10^3/ul (3.5-10.8)
[2017-03-18] MEDS ORDERED: Insulin REGULAR(*) 1 UNITS UNIT IV PUSH ONE (10:20)
[2017-03-18] MEDS ORDERED: Dextrose 50% Syringe 50 ML* 25 GM/50 ML SYRINGE IV PUSH PRN (10:20)
[2017-03-18 10:35] LABS: ABS Basophils 0.1 10^3/ul (0-0.2); ABS Eosinophils 0.1 10^3/ul (0-0.6); ABS Lymphocytes 0.7 10^3/ul (1.0-4.8); ABS Monocytes 0.3 10^3/ul (0-0.8); ABS Neutrophils 7.6 10^3/ul (1.5-7.7); ABS Nucleated RBC 0 10^3/ul; Eosinophil % 1.2 % (0-6); Lymphocyte % 8.1 % (25-47); Mean Platelet Volume 8 um3 (7.4-10.4); Nucleated Red Blood Cells % 0.1; Platelet Count 236 10^3/ul (150-450)
[2017-03-18 12:35] LABS: Urine Appearance Cloudy; Urine Blood 1+ (Negative); Urine Color Yellow; Urine Ketones Negative (Negative); Urine Protein 1+(30 mg/dL) (Negative); Urine Specific Gravity 1.013 (1.010-1.030); Urine Urobilinogen Negative (Negative)
[2017-03-18] MEDS ORDERED: Albuterol/Ipratropium NEB.SOL* Albuterol 2.5 MG/Ipratropium 0.5 MG 3 ML INH PRN (13:45)
[2017-03-18] MEDS: Meropenem 1 GM PREMIX(*) 1 GM/50 ML BAG IV SCH ×2 (15:42→22:26)
--- NOTE | 2017-03-18 19:51 | HP ---
ADMISSION HISTORY AND PHYSICAL: DATE OF ADMISSION: 03/18/17 REASON FOR ADMISSION: Respiratory failure and possible sepsis. HISTORY OF PRESENT ILLNESS: This patient is a 61-year-old female with advanced multiple sclerosis who is a resident at [facility] (and is essentially bedbound) and was brought to the ED today because of increasing shortness of breath. She was most recently in this hospital in December 2016 with E. coli urosepsis (the patient has had numerous episodes of E. coli urosepsis, including organisms that are beta-lactamase resistant). In the emergency department, urine was noted to be cloudy and specimen was sent for culture, and the patient was given 1 g of ceftriaxone. The patient's complaints of shortness of breath have been going on for about 1 week and the patient does have a history of COPD and was told she should be on home O2; however, has refused. In the emergency department, chest x-ray was clear, but blood gases revealed a pCO2 of 69, pH of 7.17. Repeat ABG showed a pCO2 of 59 and pH of 7.22. The patient denies cough with sputum production, fever, chills , or chest pain. OUTPATIENT MEDICATIONS: 1. Oxycodone 5 mg p.o. q.4 h. p.r.n. pain. 2. Wellbutrin 150 mg p.o. q.a.m. 3. Gabapentin 300 mg p.o. at bedtime. 4. Tamsulosin 0.4 mg p.o. daily. 5. Remeron 15 mg p.o. at bedtime. 6. Combivent 1 inhalation q.4 hours. 7. Lisinopril 5 mg daily. 8. Amlodipine 5 mg daily. 9. Furosemide 20 mg daily. 10. Tamsulosin 0.4 mg daily. DRUG ALLERGIES: The patient apparently has a LATEX allergy, but the reaction is unknown. REVIEW OF SYSTEMS: Noncontributory. PHYSICAL EXAMINATION GENERAL: The patient was alert and oriented, and was breathing comfortably. VITAL SIGNS: Temp 97.1, blood pressure 119/76, pulse 65 and regular, respiratory rate 24 and nonlabored, O2 sat 96% on nasal O2 at 2 L per minute. HEENT: Oropharynx is clear. NECK: Supple. CHEST: Lungs are clear to auscultation. CARDIAC: No murmurs or rubs. ABDOMEN: Distended. Bowel sounds present. There was no fluid wave. EXTREMITIES: Warm. There was 1 to 2+ edema and there was no cyanosis. NEUROLOGIC: The patient is unable to lift any limb against gravity. ADMISSION LABORATORY DATA: White count 8.7, hemoglobin 11.3, hematocrit 35, platelets 236,000. Admission electrolytes significant for a potassium of 5.7, BUN 40, creatinine 1.09. Lactic acid was 0.4. C-reactive protein 50.1. B- natriuretic peptide was 77. Albumin 3.7. Blood gases as mentioned. Urinalysis showed 3+ white cells, 3+ leukocyte esterase positive. Chest x-ray showed poor expansion with no identifiable infiltrates. IMPRESSION: This patient appears to have chronic lung disease, which may be slowly progressing. The relationship between the pCO2 and pH suggest chronic CO2 retention. There is likely a urinary tract infection in this case and this appears to be a recurrent and possibly chronic problem. Overall, the patient does not appear to be in extremis. MANAGEMENT PLAN: Because of prior infections with resistant organisms, we will treat presumed urinary tract infection with meropenem 1 g q8 hours, and will monitor respiratory status in the ICU (and use BiPAP if necessary). CRITICAL CARE TIME: 50 minutes. [id number]/[facility] #: [id number]
[2017-03-18] MEDS: Heparin VIAL(*) 5000 UNITS/ML VIAL (FIVE THOUSAND) SUBCUT SCH (20:28)
[2017-03-18] MEDS: Gabapentin CAP(*) 300 MG PO SCH (20:28)
[2017-03-19] MEDS: Meropenem 1 GM PREMIX(*) 1 GM/50 ML BAG IV SCH ×3 (05:45→21:37)
[2017-03-19] MEDS: Famotidine TAB* 20 MG PO SCH (08:15)
[2017-03-19] MEDS: Tamsulosin CAP* 0.4 MG PO SCH (08:15)
[2017-03-19] MEDS: buPROPion SR TAB.SR* 150 MG PO SCH (08:15)
[2017-03-19] MEDS: Polyethylene Glycol 3350* 17 GM PACKET PO SCH (08:15)
[2017-03-19] MEDS: Heparin VIAL(*) 5000 UNITS/ML VIAL (FIVE THOUSAND) SUBCUT SCH ×2 (08:16→19:28)
[2017-03-19 10:08] LABS: Hematocrit 30 % (35-47); Hemoglobin 9.7 g/dl (12.0-16.0); Mean Corpuscular HGB Conc 32 g/dl (31-36); Mean Corpuscular Hemoglobin 33 pg (27-31); Mean Corpuscular Volume 101 fL (80-97); Mean Platelet Volume 7 um3 (7.4-10.4); Platelet Count 237 10^3/ul (150-450); Red Blood Count 2.97 10^6/ul (4.0-5.4); Red Cell Distribution Width 16 % (10.5-15)
--- NOTE | 2017-03-19 10:10 | PN ---
Date of Service: 03/19/17 Critical Care Services: Patient had an uneventful evening and is breathing comfortably this AM. Vital Signs: Temp Pulse Resp BP SpO2 FiO2 98.3 F 86 24 114/53 95 Physical Exam: Gen:Alert, oriented Lungs: Occasional rhonchus. Mild crackles both bases, clear with deep breaths Extremities: ARLEEN stockings on lower legs. No cyanosis. Fluid Balance (Past 24 Hours): 03/19/17 06:59 Intake Total 963 Output Total 1825 Balance -862 Weight 153 lb Intake: IV Fluids 151 MEROPENEM 151 IVPB 132 MEROPENEM 132 Oral 680 Output: Urine 750 Nava 1075 Other: Date of Last Bowel 03/18/17 Movement # Bowel Movements 1 Estimated Stool Amount Small Labs: WBC = 5.0, Hb = 9.7, MCV = 101. BMP pending Studies: Blood cultures negative so far. No report on the urine culture. Nutrition: Unrestricted diet Impression: Clinically stable on meropenem as empiric Rx for UTI. Respiratory failure is mild and likely chronic in nature. Also has a macrocytic anemia - ? folate deficiency. Plan: 1. Adjust antibiotic Rx per urine culture result. 2. Check serum folate level.
--- NOTE | 2017-03-19 10:15 | ED ---
Libra Brower Gabriel, scribed for Shree Jacobsen MD on 03/18/17 at 0838 . Altered Mental Status - HPI Summary HPI Summary: This patient is a 61 year old F BIBA to [facility] sent from [facility] for low O2 stat and lethargy. Patient is wheel chair bound and it is reported she was at 82% O2 on room air. LEVEL 5 CAVEAT: HPI limited due to the patient being unresponsive. - History Of Current Complaint Chief Complaint: EDGeneral Stated Complaint: AMS/LOW O2 Time Seen by Provider: 03/18/17 08:34 Hx Obtained From: Medical Records Hx From Patient Unobtainable Due To: Altered Mental Status Onset/Duration: Still Present Timing: Constant Severity Initially: Severe Severity Currently: Severe Character: Responsiveness - decreased Associated Signs And Symptoms: Positive: Negative - unknown - Allergies/Home Medications Allergies/Adverse Reactions: Allergies Allergy/AdvReac Type Severity Reaction Status Date / Time Latex Allergy Unknown Verified 07/02/15 15:24 Reaction Details Home Medications: Home Medications Gabapentin CAP(*) [Neurontin 300 CAP(*)] 300 mg PO BEDTIME 03/18/17 [History Confirmed 03/18/17] Ondansetron TAB* [Zofran 4 MG Tab*] 4 mg PO Q8H PRN 03/18/17 [History Confirmed 03/18/17] PMH/Surg Hx/FS Hx/Imm Hx Endocrine/Hematology History: Denies: Hx Anticoagulant Therapy, Hx Diabetes, Hx Thyroid Disease Cardiovascular History: Reports: Hx Congestive Heart Failure - 08/07 admission, Hx Hypertension - possible, Other Cardiovascular Problems/Disorders - PVD Denies: Hx Pacemaker/ICD Respiratory History: Reports: Hx Chronic Obstructive Pulmonary Disease (COPD) - possible, Hx Pneumonia Denies: Hx Asthma, Other Respiratory Problems/Disorders GI History: Reports: Hx Gastroesophageal Reflux Disease, Other GI Disorders - chronic constipation History: Reports: Other Problems/Disorders - frequent UTI Denies: Hx Dialysis, Hx Renal Disease Musculoskeletal History: Reports: Other Musculoskeletal History - chronic right leg pain, contractures d/t MS Comment Only: Hx Arthritis - OSTEO Sensory History: Reports: Hx Cataracts Denies: Hx Contacts or Glasses, Hx Hearing Aid Opthamlomology History: Reports: Hx Cataracts Denies: Hx Contacts or Glasses Neurological History: Reports: Other Neuro Impairments/Disorders - ADVANCED MS, QUADRAPALEGIC Denies: Hx Dementia, Hx Seizures Psychiatric History: Reports: Hx Anxiety, Hx Depression, Hx Substance Abuse, Other Psychiatric Issues/Disorders - insomnia Denies: Hx Panic Disorder - Surgical History Surgery Procedure, Year, and Place: 3 skin grafts on right arm; URETERAL STENT, [facility] 2010, [facility], RIGHT ILIAC ARTERY; cataract repair Hx Anesthesia Reactions: No - Immunization History Date of Tetanus Vaccine: unknown Date of Influenza Vaccine: UTD Infectious Disease History: No Infectious Disease History: Denies: Hx Hepatitis, Hx Human Immunodeficiency Virus (HIV), Traveled Outside the [place] in Last 30 Days - Family History Known Family History: Positive: Unknown, Other - Negative malignant hyperthermia , negative anesthesia reaction - Social History Alcohol Use: None Hx Substance Use: No Substance Use Type: Reports: None Hx Tobacco Use: Yes Smoking Status (MU): Former Smoker Review of Systems - ROS Summary Review of Systems Summary: LEVEL 5 CAVEAT: ROS limited due to the patient being unresponsive. Negative: Fever Negative: Rash Positive: Other - unresponsive All Other Systems Reviewed And Are Negative: No Physical Exam - Summary Physical Exam Summary: VITAL SIGNS: Reviewed. GENERAL: Patient is an elderly ill looking female who is lying comfortable in the stretcher. Patient is not in any acute respiratory distress. HEAD AND FACE: No signs of trauma. No ecchymosis, hematomas or skull depressions. No sinus tenderness. EYES: PERRLA, EOMI x 2, No injected conjunctiva, no nystagmus. EARS:. Ear canals and tympanic membranes are within normal limits. MOUTH: dry oral mucosa NECK: Supple, trachea is midline, no adenopathy, no JVD, no carotid bruit, no c- spine tenderness, neck with full ROM. CHEST: Symmetric, no tenderness at palpation LUNGS: Crackles in both bases CVS: Regular rate and rhythm, S1 and S2 present, no murmurs or gallops appreciated. ABDOMEN: Soft, non-tender. No signs of distention. No rebound no guarding, and no masses palpated. Bowel sounds are normal. EXTREMITIES: FROM in all major joints, no edema, no cyanosis or clubbing. NEURO: lethargic and does not follow commands SKIN: Dry and warm Triage Information Reviewed: Yes Vital Signs On Initial Exam: Initial Vitals Temp Pulse Resp BP Pulse Ox 96.5 F 83 18 122/58 88 03/18/17 08:32 03/18/17 08:32 03/18/17 08:32 03/18/17 08:32 03/18/17 08:32 Vital Signs Reviewed: Yes Completion Of Physical Exam Limited Due To: Altered Mental Status, Level 5 Diagnostics - Vital Signs Vital Signs Temp Pulse Resp BP Pulse Ox 03/18/17 08:32 96.5 F 83 18 122/58 88 - Laboratory Lab Results: Lab Results 03/18/17 03/18/17 03/18/17 Range/Units 09:04 09:04 09:04 WBC 8.7 (3.5-10.8) 10^3/ul RBC 3.46 L (4.0-5.4) 10^6/ul Hgb 11.3 L (12.0-16.0) g/dl Hct 35 (35-47) % MCV 102 H (80-97) fL MCH 33 H (27-31) pg MCHC 32 (31-36) g/dl RDW 16 H (10.5-15) % Plt Count 236 (150-450) 10^3/ul MPV 8 (7.4-10.4) um3 Neut % (Auto) 86.7 H (38-83) % Lymph % (Auto) 8.1 L (25-47) % [place] % (Auto) 3.3 (1-9) % Eos % (Auto) 1.2 (0-6) % Baso % (Auto) 0.7 (0-2) % Absolute Neuts (auto) 7.6 (1.5-7.7) 10^3/ul Absolute Lymphs (auto) 0.7 L (1.0-4.8) 10^3/ul Absolute Monos (auto) 0.3 (0-0.8) 10^3/ul Absolute Eos (auto) 0.1 (0-0.6) 10^3/ul Absolute Basos (auto) 0.1 (0-0.2) 10^3/ul Absolute Nucleated RBC 0 10^3/ul Nucleated RBC % 0.1 APTT (26.0-36.3) seconds Patient Temperature ABG pH (7.35-7.45) ABG pH (Temp Correct) ABG pCO2 (35-45) mmHg ABG pCO2 (Temp Corrct ABG pO2 (80-100) mmHg ABG pO2 (Temp Correct ABG HCO3 (19-31) mmol/L ABG O2 Saturation (95-98) % ABG Base Excess (-2.0-2.0) Respiration Rate O2 Delivery Device Ventilator Type Vent Mode FiO2 Inspiratory Time PEEP Pressure Support Pressure Control EPAP IPAP BiPAP Sodium 137 (133-145) mmol/L Potassium 5.7 H (3.5-5.0) mmol/L Chloride 105 (101-111) mmol/L Carbon Dioxide 27 (22-32) mmol/L Anion Gap 5 (2-11) mmol/L BUN 40 H (6-24) mg/dL Creatinine 1.09 H (0.51-0.95) mg/dL Est GFR ( Amer) 65.8 (>60) Est GFR (Non-Af Amer) 51.2 (>60) BUN/Creatinine Ratio 36.7 H (8-20) Glucose 101 H (70-100) mg/dL Lactic Acid 0.4 L (0.5-2.0) mmol/L Calcium 9.2 (8.6-10.3) mg/dL Total Bilirubin 0.30 (0.2-1.0) mg/dL AST 20 (13-39) U/L ALT 22 (7-52) U/L Alkaline Phosphatase 112 H (34-104) U/L Total Creatine Kinase 66 (10-223) U/L CK-MB (CK-2) 3.0 (0.6-6.3) ng/mL Troponin I 0.01 (<0.04) ng/mL C-Reactive Protein 50.16 H (< 5.00) mg/L B-Natriuretic Peptide ( - 100) pg/mL Total Protein 7.1 (6.4-8.9) g/dL Albumin 3.7 (3.2-5.2) g/dL Globulin 3.4 (2-4) g/dL Albumin/Globulin Ratio 1.1 (1-3) Urine Color Urine Appearance Urine pH (5-9) Ur Specific Holt (1.010-1.030) Urine Protein (Negative) Urine Ketones (Negative) Urine Blood (Negative) Urine Nitrate (Negative) Urine Bilirubin (Negative) Urine Urobilinogen (Negative) Ur Leukocyte Esterase (Negative) Urine WBC (Auto) (Absent) Urine RBC (Auto) (Absent) Ur Squamous Epith Cells (Absent) Urine Bacteria (Absent) Urine Glucose (Negative) Influenza A (Rapid) (Negative) Influenza B (Rapid) (Negative) 03/18/17 03/18/17 03/18/17 Range/Units 09:04 09:04 09:40 WBC (3.5-10.8) 10^3/ul RBC (4.0-5.4) 10^6/ul Hgb (12.0-16.0) g/dl Hct (35-47) % MCV (80-97) fL MCH (27-31) pg MCHC (31-36) g/dl RDW (10.5-15) % Plt Count (150-450) 10^3/ul MPV (7.4-10.4) um3 Neut % (Auto) (38-83) % Lymph % (Auto) (25-47) % [place] % (Auto) (1-9) % Eos % (Auto) (0-6) % Baso % (Auto) (0-2) % Absolute Neuts (auto) (1.5-7.7) 10^3/ul Absolute Lymphs (auto) (1.0-4.8) 10^3/ul Absolute Monos (auto) (0-0.8) 10^3/ul Absolute Eos (auto) (0-0.6) 10^3/ul Absolute Basos (auto) (0-0.2) 10^3/ul Absolute Nucleated RBC 10^3/ul Nucleated RBC % APTT 24.6 L (26.0-36.3) seconds Patient Temperature ABG pH (7.35-7.45) ABG pH (Temp Correct) ABG pCO2 (35-45) mmHg ABG pCO2 (Temp Corrct ABG pO2 (80-100) mmHg ABG pO2 (Temp Correct ABG HCO3 (19-31) mmol/L ABG O2 Saturation (95-98) % ABG Base Excess (-2.0-2.0) Respiration Rate O2 Delivery Device Ventilator Type Vent Mode FiO2 Inspiratory Time PEEP Pressure Support Pressure Control EPAP IPAP BiPAP Sodium (133-145) mmol/L Potassium (3.5-5.0) mmol/L Chloride (101-111) mmol/L Carbon Dioxide (22-32) mmol/L Anion Gap (2-11) mmol/L BUN (6-24) mg/dL Creatinine (0.51-0.95) mg/dL Est GFR ( Amer) (>60) Est GFR (Non-Af Amer) (>60) BUN/Creatinine Ratio (8-20) Glucose (70-100) mg/dL Lactic Acid (0.5-2.0) mmol/L Calcium (8.6-10.3) mg/dL Total Bilirubin (0.2-1.0) mg/dL AST (13-39) U/L ALT (7-52) U/L Alkaline Phosphatase (34-104) U/L Total Creatine Kinase (10-223) U/L CK-MB (CK-2) (0.6-6.3) ng/mL Troponin I (<0.04) ng/mL C-Reactive Protein (< 5.00) mg/L B-Natriuretic Peptide 77 ( - 100) pg/mL Total Protein (6.4-8.9) g/dL Albumin (3.2-5.2) g/dL Globulin (2-4) g/dL Albumin/Globulin Ratio (1-3) Urine Color Urine Appearance Urine pH (5-9) Ur Specific Holt (1.010-1.030) Urine Protein (Negative) Urine Ketones (Negative) Urine Blood (Negative) Urine Nitrate (Negative) Urine Bilirubin (Negative) Urine Urobilinogen (Negative) Ur Leukocyte Esterase (Negative) Urine WBC (Auto) (Absent) Urine RBC (Auto) (Absent) Ur Squamous Epith Cells (Absent) Urine Bacteria (Absent) Urine Glucose (Negative) Influenza A (Rapid) Negative (Negative) Influenza B (Rapid) Negative (Negative) 03/18/17 03/18/17 Range/Units 09:59 12:16 WBC (3.5-10.8) 10^3/ul RBC (4.0-5.4) 10^6/ul Hgb (12.0-16.0) g/dl Hct (35-47) % MCV (80-97) fL MCH (27-31) pg MCHC (31-36) g/dl RDW (10.5-15) % Plt Count (150-450) 10^3/ul MPV (7.4-10.4) um3 Neut % (Auto) (38-83) % Lymph % (Auto) (25-47) % [place] % (Auto) (1-9) % Eos % (Auto) (0-6) % Baso % (Auto) (0-2) % Absolute Neuts (auto) (1.5-7.7) 10^3/ul Absolute Lymphs (auto) (1.0-4.8) 10^3/ul Absolute Monos (auto) (0-0.8) 10^3/ul Absolute Eos (auto) (0-0.6) 10^3/ul Absolute Basos (auto) (0-0.2) 10^3/ul Absolute Nucleated RBC 10^3/ul Nucleated RBC % APTT (26.0-36.3) seconds Patient Temperature Not Reportable ABG pH 7.17 L* (7.35-7.45) ABG pH (Temp Correct) Not Reportable ABG pCO2 69 H (35-45) mmHg ABG pCO2 (Temp Corrct Not Reportable ABG pO2 106 H (80-100) mmHg ABG pO2 (Temp Correct Not Reportable ABG HCO3 21.9 (19-31) mmol/L ABG O2 Saturation 98.5 H (95-98) % ABG Base Excess -3.9 L (-2.0-2.0) Respiration Rate Not Reportable O2 Delivery Device N/c Ventilator Type Not Reportable Vent Mode Not Reportable FiO2 Not Reportable Inspiratory Time Not Reportable PEEP Not Reportable Pressure Support Not Reportable Pressure Control Not Reportable EPAP Not Reportable IPAP Not Reportable BiPAP Not Reportable Sodium (133-145) mmol/L Potassium (3.5-5.0) mmol/L Chloride (101-111) mmol/L Carbon Dioxide (22-32) mmol/L Anion Gap (2-11) mmol/L BUN (6-24) mg/dL Creatinine (0.51-0.95) mg/dL Est GFR ( Amer) (>60) Est GFR (Non-Af Amer) (>60) BUN/Creatinine Ratio (8-20) Glucose (70-100) mg/dL Lactic Acid (0.5-2.0) mmol/L Calcium (8.6-10.3) mg/dL Total Bilirubin (0.2-1.0) mg/dL AST (13-39) U/L ALT (7-52) U/L Alkaline Phosphatase (34-104) U/L Total Creatine Kinase (10-223) U/L CK-MB (CK-2) (0.6-6.3) ng/mL Troponin I (<0.04) ng/mL C-Reactive Protein (< 5.00) mg/L B-Natriuretic Peptide ( - 100) pg/mL Total Protein (6.4-8.9) g/dL Albumin (3.2-5.2) g/dL Globulin (2-4) g/dL Albumin/Globulin Ratio (1-3) Urine Color Yellow Urine Appearance Cloudy Urine pH 5.0 (5-9) Ur Specific Holt 1.013 (1.010-1.030) Urine Protein 1+(30 mg/dl) H (Negative) Urine Ketones Negative (Negative) Urine Blood 1+ H (Negative) Urine Nitrate Positive H (Negative) Urine Bilirubin Negative (Negative) Urine Urobilinogen Negative (Negative) Ur Leukocyte Esterase 3+ H (Negative) Urine WBC (Auto) 3+(>20/hpf) H (Absent) Urine RBC (Auto) 1+(3-5/hpf) H (Absent) Ur Squamous Epith Cells Present H (Absent) Urine Bacteria 3+ H (Absent) Urine Glucose Negative (Negative) Influenza A (Rapid) (Negative) Influenza B (Rapid) (Negative) Result Diagrams: 03/18/17 09:04 03/18/17 09:04 Lab Statement: Any lab studies that have been ordered have been reviewed, and results considered in the medical decision making process. - Radiology CXR Radiology Interpretation Completed By: Radiologist - NO ACTIVE CARDIOPULMONARY DISEASE. ED physician has reviewed this radiology report. - EKG 0905 Cardiac Rate: NL EKG Rhythm: Sinus Rhythm - at 72 BPM EKG Interpretation: no ST elevations Altered Mental Statu Course/Dx - Course Assessment/Plan: In the ED course an IV access was obtained. Patient was placed in a pvc monitor. Patient was started with IV fluids. Labs without any significant abnormality except for slight anemia, K 5.7, chronic renal insufficiency, CRP 50, influenza A&B negative. UA positive for UTI. Troponin #1 : 0.01. Patients Ph is 7.17, PCO2 69 and O2 sat 98.5 for which I ordered a BiPap. EKG shows a NSR w/o ST elevations. CXR impression: No acute pathology. In the Ed course I started Rocephin since I believe patient is Uroseptic. I gave the patient insulin and dextrose for her hyperkalemia. She was given Calcium Gluconate. I discussed the case wit Dr. Wolfe for admission but she believes patient may need ICU and recommended to run the case by Dr. Lema. Dr. Lema accepted the patient for admission. - Diagnoses Differential Diagnosis/HQI/PQRI: Sepsis, Other - UTI, Pneumonia, Discharge Diagnoses: Respiratory acidosis, UTI (urinary tract infection), Hyperkalemia - Provider Notifications Discussed Care Of Patient With: Bill Lema Time Discussed With Above Provider: 12:01 Instructed by Provider To: Other - We discussed patient care with Dr. Lema and he has agreed to come evaluate the patinet. 12:40 Dr. Lema has agreed to admit the patient. - Critical Care Time Critical Care Time: 30-74 min Discharge - Discharge Plan Condition: Fair Disposition: ADMITTED TO [facility] The documentation as recorded by the Libra hung Gabriel accurately reflects the service I personally performed and the decisions made by me, Shree Jacobsen MD.
[2017-03-19 10:19] LABS: EGFR Non-African American 88.3 (>60)
[2017-03-19] MEDS: Gabapentin CAP(*) 300 MG PO SCH (19:28)
[2017-03-19] MEDS: oxyCODONE TAB* 5 MG TAB PO PRN (19:29)
[2017-03-19] MEDS: Mirtazapine TAB* 15 MG PO PRN (19:29)
[2017-03-20] MEDS: oxyCODONE TAB* 5 MG TAB PO PRN ×3 (01:10→20:04)
[2017-03-20] MEDS: Meropenem 1 GM PREMIX(*) 1 GM/50 ML BAG IV SCH ×3 (05:43→22:59)
[2017-03-20] MEDS: Polyethylene Glycol 3350* 17 GM PACKET PO SCH (07:53)
[2017-03-20] MEDS: Heparin VIAL(*) 5000 UNITS/ML VIAL (FIVE THOUSAND) SUBCUT SCH ×2 (07:54→20:10)
[2017-03-20] MEDS: buPROPion SR TAB.SR* 150 MG PO SCH (07:54)
[2017-03-20] MEDS: Famotidine TAB* 20 MG PO SCH (07:54)
[2017-03-20] MEDS: Tamsulosin CAP* 0.4 MG PO SCH (07:54)
[2017-03-20] MEDS ORDERED: Ondansetron INJ* 2 MG/ML VIAL IV PRN (10:15)
[2017-03-20] MEDS: Furosemide TAB* 20 MG PO SCH (11:27)
[2017-03-20] MEDS: Lisinopril TAB* 5 MG PO SCH (11:27)
[2017-03-20] MEDS: amLODIPine TAB* 5 MG PO SCH (11:27)
--- NOTE | 2017-03-20 14:15 | PN ---
Subjective Date of Service: 03/20/17 Interval History: Patient has no complaints today. Patient thinks she is ad [place]. Patient denies any knowledge of home medication regimen including if she has been taking lasix that were previously prescribed to her daily. Patient didn't know why she was being given methotrexate for her MS as this is an unusual treatment. Patient does not have a chronic lu catheter at home. Patient states she has had frequent UTIs her whole life. Patient states that she always feels SOB and wears oxygen only at night. Patient does not remember being told by Dr. Conroy that she should wear O2 at all times. Family History: Unchanged from Admission Social History: Unchanged from Admission Past Medical History: Unchanged from Admission Objective Active Medications: Albuterol/Ipratropium (Duoneb (Albuterol 2.5 Mg/Ipratropium 0.5 Mg)) 1 neb INH Q6H PRN PRN Reason: SOB/WHEEZING Amlodipine Besylate (Norvasc Tab*) 5 mg PO DAILY [facility] Last Admin: 03/20/17 11:27 Dose: 5 mg Bupropion HCl (Wellbutrin Sr Tab*) 150 mg PO DAILY [facility] Last Admin: 03/20/17 07:54 Dose: 150 mg Dextrose (D50w Syringe 50 Ml*) 12.5 gm IV PUSH ONCE PRN PRN Reason: hyperkalemia Last Admin: 03/18/17 10:32 Dose: 12.5 gm Famotidine (Pepcid Tab*) 20 mg PO DAILY [facility] Last Admin: 03/20/17 07:54 Dose: 20 mg Furosemide (Lasix Tab*) 20 mg PO DAILY [facility] Last Admin: 03/20/17 11:27 Dose: 20 mg Gabapentin (Neurontin Cap(*)) 300 mg PO BEDTIME [facility] Last Admin: 03/19/17 19:28 Dose: 300 mg Heparin Sodium (Porcine) (Heparin Vial(*)) 5,000 units SUBCUT Q12HR [facility] Last Admin: 03/20/17 07:54 Dose: 5,000 units Meropenem (Merrem 1 Gm Premix(*)) 1 gm in 50 mls @ 100 mls/hr IV Q8H [facility] Last Admin: 03/20/17 13:18 Dose: 100 mls/hr Lisinopril (Prinivil Tab*) 5 mg PO DAILY [facility] Last Admin: 03/20/17 11:27 Dose: 5 mg Mirtazapine (Remeron Tab*) 15 mg PO BEDTIME PRN PRN Reason: SLEEP Last Admin: 03/19/17 19:29 Dose: 15 mg Ondansetron HCl (Zofran Inj*) 4 mg IV Q6H PRN PRN Reason: NAUSEA Last Admin: 03/20/17 10:42 Dose: 4 mg Oxycodone HCl (Roxycodone Tab*) 5 mg PO Q4H PRN PRN Reason: DISCOMFORT Last Admin: 03/20/17 07:53 Dose: 5 mg Polyethylene Glycol/Electrolytes (Miralax*) 17 gm PO DAILY [facility] Last Admin: 03/20/17 07:53 Dose: 17 gm Tamsulosin HCl (Flomax Cap*) 0.4 mg PO DAILY [facility] Last Admin: 03/20/17 07:54 Dose: 0.4 mg Vital Signs - 8 hr 03/20/17 03/20/17 03/20/17 07:25 07:53 08:00 Temperature 98.0 F Pulse Rate 85 Respiratory 18 18 18 Rate Blood Pressure 145/59 (mmHg) O2 Sat by Pulse 94 Oximetry 03/20/17 03/20/17 03/20/17 09:19 10:53 11:34 Temperature 97.8 F Pulse Rate 87 87 Respiratory 16 20 18 Rate Blood Pressure 124/65 (mmHg) O2 Sat by Pulse 93 96 Oximetry 03/20/17 12:38 Temperature Pulse Rate Respiratory 18 Rate Blood Pressure (mmHg) O2 Sat by Pulse Oximetry Oxygen Devices in Use Now: Nasal Cannula - 2L Appearance: Patient is a 61yo female who appears stated age and is sitting in the bed in [facility]. Eyes: No Scleral Icterus, PERRLA Ears/Nose/Mouth/Throat: NL Teeth, Lips, Gums, Clear Oropharnyx, Mucous Membranes Moist Neck: NL Appearance and Movements; NL JVP, Trachea Midline Respiratory: Symmetrical Chest Expansion and Respiratory Effort, - - Crackles throughout lungs. Cardiovascular: NL Sounds; No Murmurs; No JVD, RRR, - - 1+ edema in B/L LE. Abdominal: NL Sounds; No Tenderness; No Distention, No Hepatosplenomegaly, - - No Suprapubic or CVA tenderness. Lymphatic: No Cervical Adenopathy Extremities: No Edema, No Clubbing, Cyanosis, - - Sever muscle wasting and contractures of upper and lower extremities. Skin: No Rash or Ulcers, No Nodules or Sclerosis Neurological: - - Ptosis of left eye. Changes in vision patient is too confused to elaborate upon. AxOx1. Conversant. UNable to test strength due to contractures/spasticity. Result Diagrams: 03/19/17 09:52 03/20/17 06:38 Additional Lab and Data: Lab Results Microbiology and Other Data: Microbiology 03/18/17 17:00 Aerobic Blood Culture - Preliminary Blood Venous No Growth Day 1 Anaerobic Blood Culture - Preliminary No Growth Day 1 03/18/17 13:37 Nasal Screen MRSA (PCR)(JAGUAR) - Final Nasal Mrsa Negative Assess/Plan/Problems-Billing Assessment: Patient is a 61yo female with a PMH significant for SPMS, CHF, Recurrent UTI, chronic hypoxic and hypercarbic respiratory failure, and PVD who presents with hypoxia and ESBL UTI. Patient's hypoxia is improved and her UTI is being treated with IV meropenum. - Patient Problems (1) Chronic respiratory failure with hypoxia and hypercapnia Current Visit: Yes Status: Acute Code(s): J96.11 - CHRONIC RESPIRATORY FAILURE WITH HYPOXIA; J96.12 - CHRONIC RESPIRATORY FAILURE WITH HYPERCAPNIA SNOMED Code(s): 50903943 Comment: Patient follows with Dr. Conroy after recent UTI. Found to be hypoxic at rest at recent appointment. Patient refused to wear O2 during the day and wears 2L at night. Patient is currently on 3L O2 with crackles in lungs. Will give home dose of Lasix and wean O2 as able. Will need to be discharged with O2. ABG shows respiratory acidosis with hypercapnia. Improving on repeat ABG. (2) UTI (urinary tract infection) Current Visit: No Status: Acute Comment: >100K ESBL positive EColi. Continue Meropenum. Remove Lu Catheter. (3) GERD (gastroesophageal reflux disease) Current Visit: No Status: Chronic Code(s): K21.9 - GASTRO-ESOPHAGEAL REFLUX DISEASE WITHOUT ESOPHAGITIS SNOMED Code(s): 083945176 Comment: Stable Not on medication (4) HTN (hypertension) Current Visit: No Status: Chronic Code(s): I10 - ESSENTIAL (PRIMARY) HYPERTENSION SNOMED Code(s): 27618585 Comment: Resume amlodipine, lasix and lisinopril. Normotensive. (5) Multiple sclerosis Current Visit: No Status: Chronic Code(s): G35 - MULTIPLE SCLEROSIS SNOMED Code(s): 24428140 Comment: Functionally quadriplegic, limited to motorized wheelchair. Continue supportive care and medications. Note from MS specialist in [place] indicates that this should continue if there are no serious infections. Patient has had a pneumonia and several UTIs for which she has needed to be hospitalized over the past year. No specific indication for MTX in MS treatment. Will hold in acute phase of illness and leave up to outpatient neurologist to resume. (6) Sacral ulcer Current Visit: No Status: Chronic Code(s): L98.429 - NON-PRESSURE CHRONIC ULCER OF BACK WITH UNSPECIFIED SEVERITY SNOMED Code(s): 18438123 Comment: Healed Ulcer on sacrum. Continue mepilex, T/P frequently. (7) DNR (do not resuscitate) Current Visit: Yes Status: Acute (8) DVT prophylaxis Current Visit: No Status: Acute Code(s): ZRM1174 - SNOMED Code(s): 361087008 Comment: SQ heparin Status and Disposition: Patient is admitted inpatient. Will discharge to [facility] when medically able.
[2017-03-20] MEDS: Mirtazapine TAB* 15 MG PO PRN (20:04)
[2017-03-20] MEDS: Gabapentin CAP(*) 300 MG PO SCH (20:05)
[2017-03-21] MEDS: Meropenem 1 GM PREMIX(*) 1 GM/50 ML BAG IV SCH (05:11)
[2017-03-21] MEDS: oxyCODONE TAB* 5 MG TAB PO PRN (05:12)
[2017-03-21 06:22] LABS: ABS Basophils 0 10^3/ul (0-0.2); ABS Eosinophils 0.1 10^3/ul (0-0.6); ABS Lymphocytes 0.7 10^3/ul (1.0-4.8); ABS Monocytes 0.2 10^3/ul (0-0.8); ABS Neutrophils 3.5 10^3/ul (1.5-7.7); ABS Nucleated RBC 0 10^3/ul; Eosinophil % 2.4 % (0-6); Hematocrit 30 % (35-47); Lymphocyte % 15.3 % (25-47); Mean Corpuscular HGB Conc 33 g/dl (31-36); Mean Corpuscular Hemoglobin 32 pg (27-31); Mean Corpuscular Volume 97 fL (80-97); Mean Platelet Volume 7 um3 (7.4-10.4); Nucleated Red Blood Cells % 0; Platelet Count 222 10^3/ul (150-450); Red Blood Count 3.11 10^6/ul (4.0-5.4); Red Cell Distribution Width 15 % (10.5-15); White Blood Count 4.5 10^3/ul (3.5-10.8)
[2017-03-21] MEDS: Furosemide TAB* 20 MG PO SCH (09:56)
[2017-03-21] MEDS: Lisinopril TAB* 5 MG PO SCH (09:56)
[2017-03-21] MEDS: Tamsulosin CAP* 0.4 MG PO SCH (09:56)
[2017-03-21] MEDS: amLODIPine TAB* 5 MG PO SCH (09:56)
[2017-03-21] MEDS: Heparin VIAL(*) 5000 UNITS/ML VIAL (FIVE THOUSAND) SUBCUT SCH (09:57)
[2017-03-21] MEDS: buPROPion SR TAB.SR* 150 MG PO SCH (09:57)
[2017-03-21] MEDS: Famotidine TAB* 20 MG PO SCH (09:57)
[2017-03-21] MEDS: Polyethylene Glycol 3350* 17 GM PACKET PO SCH (09:58)
[2017-03-21] MEDS ORDERED: DOXYcycline CAP(*) 100 MG PO SCH (11:00)
[2017-03-21 12:06] VITALS: BP 127/77
--- NOTE | 2017-03-21 12:49 | DS ---
CC: Jael; Dr. Nikki Smalls* DATE OF ADMISSION: 03/18/2017. DATE OF DISCHARGE: 03/21/2017. PRIMARY CARE PHYSICIAN: [facility]. MY ATTENDING PHYSICIAN WHILE IN THE HOSPITAL: Dr. Isidra Vilchis* (dictated by FARA Caruso). PRIMARY DISCHARGE DIAGNOSES: Extended spectrum beta-lactamase E. coli urinary tract infection; chronic hypoxic and hypercarbic respiratory failure. SECONDARY DISCHARGE DIAGNOSES: Diastolic CHF, secondary progressive multiple sclerosis, peripheral arterial disease, healed sacral ulcer, GERD, acute on chronic respiratory failure, history of aspiration pneumonia, recurrent urinary tract infections, hypertension. STUDIES DONE WHILE IN THE HOSPITAL: 1. Electrocardiogram from 03/18/2017 shows normal sinus rhythm, short GA interval, possible left atrial enlargement, QTC 438, normal axis, PAC, no other abnormalities. 2. Chest x-ray from 03/18/2017 shows no active cardiopulmonary disease. MEDICATIONS AT DISCHARGE: 1. Tamsulosin 0.4 mg p.o. at bedtime. 2. Loratadine 10 mg p.o. daily. 3. Tylenol 1,000 mg p.o. t.i.d. 4. Folic acid 1 mg p.o. Tuesday, Tuesday, Tuesday, , Tuesday, Tuesday. 5. Mirtazapine 50 mg p.o. at bedtime. 6. Polyethylene glycol 17 gm p.o. daily. 7. Bupropion 150 mg p.o. q.a.m. 8. Senokot S two tabs p.o. b.i.d. 9. Baclofen 20 mg p.o. t.i.d. 10. Oxycodone 5 mg p.o. q.4 hours as needed. 11. Combivent Respimat one puff inhalation q.i.d. as needed. 12. Furosemide 20 mg p.o. daily. 13. Amlodipine 5 mg p.o. daily. 14. Lisinopril 5 mg p.o. daily. 15. Zofran 4 mg p.o. q.8 hours as needed. 16. Gabapentin 300 mg p.o. at bedtime. 17. Doxycycline 100 mg p.o. b.i.d. times 21. New medications at discharge: Doxycycline. Medications discontinued at discharge: Methotrexate 5 mg p.o. every Tuesday. HOSPITAL COURSE: This is a brief summary of the patient's presentation. For more details, please see the history and physical from Dr. Bill Lema on 2017. In brief, the patient is a 61-year-old female with a past medical history significant for the above who presents to the emergency room for increasing shortness of breath. The patient had shortness of breath that had been going on for about one week. The patient has a history of COPD and has been told she should be on home O2 but refused. The patient's ABG showed increased CO2, decreased pH. The patient was on oxygen. The patient's repeat showed improvement. The patient follows with Dr. Conroy and was recently told that she should be wearing oxygen at all times due to chronic hypoxia. The patient was also found to have a urinary tract infection, possibly chronic which was found to be ESBL and she was started on Meropenem. The patient improved over night, was able to be transferred out of the ICU and had no hemodynamic instability, was able to decreased to two liters of oxygen which is what she wears at night, and continued to improve. The patient improved again on 2017. The patient was continued on Meropenem. At this point, the patient's only complaint was of pain in the area of her healed sacral ulcer. The patient was also restarted on her Lasix which had been held due to crackles in her lungs which resolved after being restarted on home dose of Lasix. The patient's Nava was removed. The patient has at this point been admitted for infectious disease related concerns four times in the past two years, including three urinary tract infections and a pneumonia. The patient was seen recently by a neurologist and an MS specialist in [place] and it was felt that while there is anecdotal evidence for improvement of MS on Methotrexate, there is no consistent evidence that general immunosuppression helps with MS symptoms. The patient also has been having frequent serious infections which her neurologist stated as a reason to discontinue Methotrexate. This was discussed with the patient's outpatient neurologist, Dr. Nikki Smalls, and she was in agreement that given this and the lack of evidence for Methotrexate to be effective in MS , that it would be prudent to discontinue Methotrexate at this time. The patient was also in agreement that this was probably the time for her to stop the Methotrexate and that she discuss with Dr. Smalls her treatment on newly available disease modifying therapy Ocrelizumab. The patient was amenable to be discharged to [facility] on Doxycycline. PHYSICAL EXAMINATION ON THE DAY OF DISCHARGE: General: The patient is a 61-year -old female who appears her stated age, has significant visible muscle wasting and is in the bed in no acute distress. Vital Signs: Temperature 99.9, heart rate 85, respiratory rate 14, oxygen saturation 96 percent on 2 liters, blood pressure 137/69. HEENT: Head normocephalic, atraumatic. Sclerae anicteric. No conjunctival injection. Nasal mucosa moist. Oral mucosa moist. No pharyngeal erythema. Neck: Supple, nontender, obese. No lymphadenopathy. No carotid bruit auscultated. Respiratory: Diminished throughout. A single wheeze heard in the left anterior lobe. Crackles from yesterday have improved. Good air exchange bilaterally. Cardiac: Regular rate and rhythm. No clicks , murmurs, gallops or rubs. Pulse 2+ in bilateral dorsalis pedis, posterior tibialis and radial areas. Trace bilateral lower extremity edema. Abdomen: Soft, distended, bowel sounds present, hypoactive in all four quadrants. No hepatosplenomegaly. No suprapubic tenderness. No CVA tenderness. Skin: Clean , dry. There is a healed sacral decubitus ulcer. Neuro: The patient is alert and oriented times three;however, the patient continually believes she is back at [facility]. The patient has no other specific confusion and is otherwise very alert. The patient has contractures. The patient has soft retained strength in her right upper extremity. Cranial nerves II through XII grossly intact. The patient complains of baseline decreased vision in her left eye. Psychiatric: The patient is pleasant, cooperative. LABORATORY DATA ON THE DAY OF DISCHARGE: White blood cell count 4.5, hemoglobin 10.0, hematocrit 30, MCV 97, MCH 32, platelets 222; sodium 137, potassium 4.6, chloride 100, carbon dioxide 32, anion gap 5, BUN 13, creatinine 0.6, glucose 80, calcium 9.5. Other laboratory values of note from admission: CRP on admission 50.16, folate 17.39, lactic acid 0.4, potassium 5.7, creatinine 1.09 on admission. ABG pH at admission 7.17, repeat 7.22. DISCHARGE PLAN: The patient will be discharged back to [facility] on 11 more days of Doxycycline for a total course of 14 days, including Meropenem treatment. The patient should also stop her Methotrexate. The patient should continue folate supplementation. The patient should follow-up with Dr. Smalls as an outpatient for discussion of a disease modifying therapy and goal of care. The patient also requested to discuss her somnolence for which she started to have on Wellbutrin, but she still finds tends to be the most bothersome part of her disease process at this time. The patient should follow- up with Dr. Conroy about her chronic respiratory failure. The patient should wear oxygen 2 liters at all times. The patient should return to the hospital for alarming symptoms such as significantly increased shortness of breath, chest pain, or other alarming symptoms. The patient should engage in activity as tolerated with the goal of maximizing her remaining functional capacity. The patient should have a regular unrestricted diet. Approximately 60 minutes were spent on this discharge, 30 of which were spent face- to-face with the patient obtaining history and physical and discussing treatment plan. FARA CARUSO [id number]/[facility] #: [id number] JOSE LUIS
== END 2017-03-21 14:25 | DRG 189 ==
LOC: ED 08:31 → ICU 12:26 → MED 03-19 11:50
PROVIDERS: ADMIT Internal Medicine Critical Care Medicine; ATTEND Internal Medicine
DX: J96.21 Acute and chronic respiratory failure with hypoxia (principal); I11.0 Hypertensive heart disease with heart failure; I50.30 Unspecified diastolic (congestive) heart failure; G35 Multiple sclerosis; N39.0 Urinary tract infection, site not specified; J96.22 Acute and chronic respiratory failure with hypercapnia; B96.29 Other Escherichia coli [E. coli] as the cause of diseases classified elsewhere; I73.9 Peripheral vascular disease, unspecified; K21.9 Gastro-esophageal reflux disease without esophagitis; Z74.01 Bed confinement status; Z79.891 Long term (current) use of opiate analgesic; Z79.899 Other long term (current) drug therapy; Z91.040 Latex allergy status; Z66 Do not resuscitate; D53.9 Nutritional anemia, unspecified
CPT/HCPCS: 36415; 36600; 71045; 80048; 80053; 81003; 81015; 82550; 82553; 82746; 82803; 83605; 83880; 84484; 85025; 85027; 85730; 86140; 87040; 87077; 87086; 87186; 87502; 87641; 93005; 94760; A9270-GY; J0696; J1644; J2185; J2405

== ENCOUNTER 2017-04-18 14:30 | Emergency (ER) | payer MEDICARE, MEDICAID ==
--- NOTE | 2017-04-18 16:32 | RAD ---
INDICATION: LEFT lower extremity pain and edema. COMPARISON: September 15, 2006 TECHNIQUE: Bermudez scale, color Doppler, and spectral analysis of the deep veins of the LEFT lower extremity. Vessel compression, phasicity, and augmentation assessed. REPORT: Extensive subcutaneous edema from the knee caudal. The LEFT common femoral, great saphenous, profunda femoral, femoral, and popliteal veins are patent. There is occlusive thrombosis of one of the posterior tibial and one of the peroneal veins of the calf with remaining posterior tibial and peroneal veins patent. Patency of the RIGHT common femoral vein documented. IMPRESSION: LEFT lower extremity DVT involving one of the posterior tibial and one of the peroneal calf veins. Associated soft tissue edema.
--- NOTE | 2017-04-18 16:36 | RAD ---
Indication: LEFT leg pain and swelling. Rales, rhonchi, COPD. Comparison: LEFT lower extremity venous Doppler remarkable for DVT involving the calf veins. Technique: Sitting AP and lateral chest views. Report: Suboptimal inspiration and obesity limits radiographic assessment. Bibasilar linear atelectasis. Grossly clear pleural spaces. Accounting for leftward rotation the heart does not appear enlarged. Unremarkable central pulmonary vasculature accounting for low lung volumes. IMPRESSION: Low lung volumes with basilar atelectasis.
--- NOTE | 2017-04-18 17:08 | ED ---
Lower Extremity - HPI Summary HPI Summary: Patient here with left lower extremity pain "the entire leg" 1 month. She reports this as an aching pain that is worse with toe and ankle movement however does not have exacerbation of pain with passive knee or hip movement. Has tried acetaminophen w/o relief. She denies skin changes, fever, chills, chest pain, shortness of breath, injury to the area currently or remotely. Denies numbness or tingling - she does have weakness in B/L LE's (baseline) and is confined to a wheelchair due to debilitating MS. She is a resident at [facility] and was scheduled to have an outpatient DVT study today however her son was concerned and wanted her to come to the hospital for evaluation. She was seen last month here and admitted on 03/18/2017 for chronic urinary infection , hypoxia, and it was discussed that she should stop her methotrexate due to recurrent infections and lack of improvement of MS. - History of Current Complaint Chief Complaint: EDExtremityLower Stated Complaint: LT LEG PAIN/SWELLING Time Seen by Provider: 04/18/17 14:34 Hx Obtained From: Patient Pain Intensity: 5 - Allergies/Home Medications Allergies/Adverse Reactions: Allergies Allergy/AdvReac Type Severity Reaction Status Date / Time MS Latex [Latex] Allergy Unknown Verified 04/18/17 15:18 Reaction Details Home Medications: Home Medications Acetaminophen [Acetaminophen Extra Strength] 1,000 mg PO TID 04/18/17 [History Confirmed 04/18/17] PMH/Surg Hx/FS Hx/Imm Hx Previously Healthy: Yes Endocrine/Hematology History: Denies: Hx Anticoagulant Therapy, Hx Diabetes, Hx Thyroid Disease Cardiovascular History: Reports: Hx Congestive Heart Failure - 08/07 admission, Hx Hypertension - possible, Other Cardiovascular Problems/Disorders - PVD Denies: Hx Pacemaker/ICD Respiratory History: Reports: Hx Chronic Obstructive Pulmonary Disease (COPD) - possible, Hx Pneumonia, Other Respiratory Problems/Disorders - hypoaxia - on 2L O2 continuously Denies: Hx Asthma GI History: Reports: Hx Gastroesophageal Reflux Disease, Other GI Disorders - chronic constipation History: Reports: Other Problems/Disorders - frequent UTI Denies: Hx Dialysis, Hx Renal Disease Musculoskeletal History: Reports: Other Musculoskeletal History - chronic right leg pain, contractures d/t MS Comment Only: Hx Arthritis - OSTEO Sensory History: Reports: Hx Cataracts Denies: Hx Contacts or Glasses, Hx Hearing Aid Opthamlomology History: Reports: Hx Cataracts Denies: Hx Contacts or Glasses Neurological History: Reports: Other Neuro Impairments/Disorders - ADVANCED MS, QUADRAPALEGIC Denies: Hx Dementia, Hx Seizures Psychiatric History: Reports: Hx Anxiety, Hx Depression, Hx Substance Abuse, Other Psychiatric Issues/Disorders - insomnia Denies: Hx Panic Disorder - Surgical History Surgery Procedure, Year, and Place: 3 skin grafts on right arm; URETERAL STENT, [facility] 2010, [facility], RIGHT ILIAC ARTERY; cataract repair Hx Anesthesia Reactions: No - Immunization History Date of Tetanus Vaccine: unknown Date of Influenza Vaccine: this season Immunizations Up to Date: Yes Infectious Disease History: No Infectious Disease History: Denies: Hx Hepatitis, Hx Human Immunodeficiency Virus (HIV), Traveled Outside the [place] in Last 30 Days - Family History Known Family History: Positive: Unknown, Other - Negative malignant hyperthermia , negative anesthesia reaction - Social History Occupation: Disabled Lives: [facility] Alcohol Use: None Hx Substance Use: No Substance Use Type: Reports: None Hx Tobacco Use: Yes Smoking Status (MU): Former Smoker Review of Systems Constitutional: Negative Negative: Fever, Chills, Fatigue Cardiovascular: Negative Negative: Palpitations, Chest Pain Respiratory: Negative Negative: Shortness Of Breath, Cough Gastrointestinal: Negative Positive: no symptoms reported Positive: Arthralgia, Myalgia Skin: Negative Positive: Weakness - bsaeline - not worse. Negative: Paresthesia, Numbness Positive: Anxious All Other Systems Reviewed And Are Negative: Yes Physical Exam Triage Information Reviewed: Yes Vital Signs On Initial Exam: Initial Vitals Temp Pulse Resp BP Pulse Ox 97.4 F 79 19 124/75 96 04/18/17 14:31 04/18/17 14:31 04/18/17 14:31 04/18/17 14:31 04/18/17 14:31 Vital Signs Reviewed: Yes Appearance: Positive: Well-Appearing, No Pain Distress - at rest - watchin TV lying stretcher upon entrance to room, Well-Nourished Skin: Positive: Warm, Skin Color Reflects Adequate Perfusion, Dry - no erythema , no ecchymosis over LE in area of pain; sacral ulcer also evaluated - clean, dry and NTTP Head/Face: Positive: Normal Head/Face Inspection Eyes: Positive: EOMI ENT: Positive: Hearing grossly normal Respiratory/Lung Sounds: Positive: Breath Sounds Present, Rales, Rhonchi - diffuse, Wheezes. Negative: Stridor, Unable to speak in full sentences, Fatigue Cardiovascular: Positive: Leg Edema Left - pedal edema on Lt slightly worse than Rt (-) Shantell's, Leg Edema Right, S1, S2. Negative: Pulses are Symmetrical in both Upper and Lower Extremities - difficult to assess DP's B/L however cap refill < 2 secs and skin appears well perfused and same in color, temp and texture B/L Abdomen Description: Positive: Nontender, No Organomegaly Musculoskeletal: Positive: Limited @ - pt can barely wiggle toes on Lt LE d/t baseline weakness - has pain w/ passive movement of toes, ankle - no pain with passive movement of knee and hip here Neurological: Positive: Alert, Oriented to Person Place, Time, Other - sensation intact and equal B/L in LE's but motor is limited in LE's (again, pt reports this is baseline) Psychiatric: Positive: Normal Diagnostics - Vital Signs Vital Signs Temp Pulse Resp BP Pulse Ox 04/18/17 14:31 97.4 F 79 19 124/75 96 - Laboratory Result Diagrams: 04/18/17 17:12 04/18/17 17:12 Lab Statement: Any lab studies that have been ordered have been reviewed, and results considered in the medical decision making process. Lower Extremity Course/Dx - Course Course Of Treatment: U/S reveals DVT in distal region of LLE. Checked labs and will start xarelto after conversation with pt about options of lovenox + coumadin or xarelto. Labs indicate pt should tolerate routine dosing. Discussed w/ pt who will be d/c'd today and close f/u w/ PCP recommended. Reviewed danger s/sx of when to return to ED. - Diagnoses Provider Diagnoses: Left leg DVT - Physician Notifications Discussed Care Of Patient With: David Caraballo Discharge - Discharge Plan Condition: Stable Disposition: HOME Prescriptions: Rivaroxaban TAB(*) [Xarelto 15 mg(*)] 15 mg PO BID #41 tab Patient Education Materials: Deep Vein Thrombosis (ED) Referrals: Jael, [Primary Care Provider] - Additional Instructions: You appear to have a clot in your Left leg. You were started on a "blood thinning" medication to help this condition - first dose given here tonight. Remaining dose of 15mg 2 x day for 21 days sent to pharmacy. You will need to transition to 20mg daily upon completing this prescription. It is important that you follow up with her PCP later this week for recheck of lower extremity pain and tolerance to medication. Call tomorrow to arrange follow-up. *If you develop chest pain, shortness of breath, fever, increased heart rate, weakness, worsening of pain, or bleeding, return to the emergency department.
[2017-04-18 17:22] LABS: ABS Basophils 0.1 10^3/ul (0-0.2); ABS Eosinophils 0.2 10^3/ul (0-0.6); ABS Lymphocytes 0.8 10^3/ul (1.0-4.8); ABS Monocytes 0.4 10^3/ul (0-0.8); ABS Neutrophils 5.5 10^3/ul (1.5-7.7); ABS Nucleated RBC 0 10^3/ul; Eosinophil % 2.9 % (0-6); Hematocrit 32 % (35-47); Hemoglobin 10.4 g/dl (12.0-16.0); Lymphocyte % 11.6 % (25-47); Mean Corpuscular HGB Conc 32 g/dl (31-36); Mean Corpuscular Hemoglobin 32 pg (27-31); Mean Corpuscular Volume 99 fL (80-97); Mean Platelet Volume 8 um3 (7.4-10.4); Nucleated Red Blood Cells % 0; Platelet Count 232 10^3/ul (150-450); Red Blood Count 3.28 10^6/ul (4.0-5.4); Red Cell Distribution Width 15 % (10.5-15)
[2017-04-18 17:30] LABS: INR 0.89 (0.77-1.02)
[2017-04-18 17:39] LABS: EGFR Non-African American 82.6 (>60)
[2017-04-18] MEDS ORDERED: Rivaroxaban TAB(*) 15 MG PO ONE (18:09)
[2017-04-18 20:52] VITALS: BP 108/65
== END 2017-04-18 20:51 | disposition home or self-care (01) ==
LOC: ED 14:30
DX: I82.402 Acute embolism and thrombosis of unspecified deep veins of left lower extremity (principal); M79.605 Pain in left leg; Z87.891 Personal history of nicotine dependence; R53.1 Weakness; F41.9 Anxiety disorder, unspecified
CPT/HCPCS: 36415; 71046; 80053; 85025; 85610; 85730; 99282

== ENCOUNTER 2017-05-01 23:53 | Inpatient (IN) | payer MEDICARE, MEDICAID ==
[2017-05-02] MEDS ORDERED: NS 0.9% 1000 ML* 1,000 ML IV ONE (00:26)
[2017-05-02 01:11] LABS: ABS Basophils 0 10^3/ul (0-0.2); ABS Eosinophils 0.3 10^3/ul (0-0.6); ABS Monocytes 0.5 10^3/ul (0-0.8); ABS Nucleated RBC 0 10^3/ul; Eosinophil % 3.2 % (0-6); Hematocrit 31 % (35-47); Hemoglobin 9.7 g/dl (12.0-16.0); Lymphocyte % 13.3 % (25-47); Mean Corpuscular HGB Conc 32 g/dl (31-36); Mean Corpuscular Hemoglobin 32 pg (27-31); Mean Corpuscular Volume 100 fL (80-97); Mean Platelet Volume 8 um3 (7.4-10.4); Nucleated Red Blood Cells % 0; Platelet Count 250 10^3/ul (150-450); Red Blood Count 3.05 10^6/ul (4.0-5.4); Red Cell Distribution Width 14 % (10.5-15); White Blood Count 7.9 10^3/ul (3.5-10.8)
[2017-05-02 01:19] LABS: INR 1.43 (0.77-1.02)
[2017-05-02 01:23] LABS: EGFR Non-African American 71.1 (>60)
[2017-05-02] MEDS ORDERED: Piperacillin/Tazobac ADVAN(*) 3.375 GM in NS 0.9% 100 ML* 100 ML IVPB ONE (02:02)
[2017-05-02] MEDS ORDERED: Azithromycin IV(*) 500 MG in NS 0.9% 250 ML* 250 ML IVPB ONE (02:03)
[2017-05-02 02:20] LABS: Urine Appearance Clear; Urine Blood 1+ (Negative); Urine Color Yellow; Urine Ketones Negative (Negative); Urine Protein Negative (Negative); Urine Specific Gravity 1.012 (1.010-1.030); Urine Urobilinogen Negative (Negative)
--- NOTE | 2017-05-02 02:35 | HP ---
H&P (Free Text) History and Physical: PCP: Jael Date/Time: 05/02/2017 0035 CC: SOB HPI: Mrs Anglin is a 61YO female HX end-stage multiple sclerosis, COPD refused home oxygen, PAOD who is brought in via EMS from [facility] with SOB and labored breathing. Upon arrival she had an saO2 of 92% on 10L oxymask and was converted to BiPap 01/26. Upon my evaluation, she does not answer questions verbally, but shakes her head yes/no seemingly appropriately. Much of this history is therefore obtained via ED staff and the available medical record. There is no report of F/C, sweats, N/V, diarrhea, productive cough, abdominal pain, or other issues. No known exacerbating or alleviating factors. PMedHx multiple sclerosis, secondary progressive ESBL E coli UTI 02/2017 COPD, refused home oxygen chronic hypoxic/hypercapneic respiratory failure diastoic HF HTN PAOD sacral decubitus, healed GERD Ambulatory Orders Nursing to reconcile. Tamsulosin CAP* [Flomax CAP*] 0.4 mg PO BEDTIME 06/26/15 Baclofen TAB* [Lioresal TAB*] 20 mg PO QID 07/26/16 Bupropion XL* [Wellbutrin XL *] 150 mg PO QAM 07/26/16 Folic Acid TAB* [Folvite TAB*] 1 mg PO QAM 07/26/16 LoraTADine TAB(NF) [Claritin 10 MG TAB(NF)] 10 mg PO DAILY 07/26/16 Mirtazapine TAB* [Remeron TAB*] 15 mg PO BEDTIME 07/26/16 Polyethylene Glycol 3350* [Miralax*] 17 gm PO DAILY 07/26/16 Senna/Docusate (NF) [Sennokot-S(NF)] 2 tab PO BID 07/26/16 Albuterol/Ipratropium RESP(NF) [Combivent Respimat (NF)] 1 puff INH QID Furosemide TAB* [Lasix TAB*] 20 mg PO DAILY 01/07/17 oxyCODONE TAB* [Roxycodone TAB 5 mg*] 5 mg PO Q4H PRN 01/07/17 Lisinopril TAB* [Prinivil TAB 5 MG*] 5 mg PO DAILY #0 tab 01/10/17 amLODIPine TAB* [Norvasc 5 mg TAB*] 5 mg PO DAILY #0 tab 01/10/17 Gabapentin CAP(*) [Neurontin 300 CAP(*)] 300 mg PO BEDTIME 03/18/17 Ondansetron TAB* [Zofran 4 MG Tab*] 4 mg PO Q8H PRN 03/18/17 Acetaminophen [Acetaminophen Extra Strength] 1,000 mg PO TID 04/18/17 Rivaroxaban TAB(*) [Xarelto 15 mg(*)] 15 mg PO BID #41 tab 04/18/17 Allergies latex Allergy (Verified 04/18/17 20:53) Unknown Reaction Details PSurgHx cataract extraction tubal ligation RLE skin graft SocHx: quit smoking ~10 years ago w/ ~20PYHX, no alcohol or recreational drugs; , lives alone, 2 children; resides at [facility], bed-bound; retired from banking; full code status FamHx: positive for SLE, small cell lung CA ROS: as above, otherwise reviewed and all were negative vitals: Vital Signs Temp 37.0 C 05/02/17 04:32 Pulse 68 05/02/17 04:32 Resp 21 05/02/17 04:32 BP 90/53 05/02/17 04:32 Pulse Ox 94 05/02/17 04:32 Intake & Output 05/01/17 05/01/17 05/02/17 11:59 23:59 11:59 Intake Total 350 Balance 350 Weight 68.039 kg Intake: IV Fluids 350 Constitutional: NAD, normally developed, overweight white female HEENM: atraumatic; sclera/conjunctiva: anicteric/clear; hearing: unable to adequately assess; oropharynx: clear, mucosa moist Neck: soft tissue: no nuchal rigidity; thyroid: normal Pulmonary: clear to auscultation right, diminished L, fair to good aeration, no accessory muscle use CV: RR/RR, normal S1S2, no carotid bruit, no jugular venous distention, 2+ B DP/ PT, no edema Abdominal: soft, non-distended, non-tender, no rebound/guarding/rigidity, normoactive bowel sounds, no hepatosplenomegaly or masses, no costovertebral angle tenderness Musculoskeletal: general: grossly intact; gait: non-ambulatory at baseline Integumental: normal appearance and texture of exposed skin Psychiatric orientation: somnolent, arouses to voice, oriented to person but otherwise uncertain affect: flat, somnolent mood: acquiescent eye contact: poor content: absent responses: only shakes head yes/no, does not make eye contact insight: poor Testing: Lab Results 05/02/17 05/02/17 05/02/17 Range/Units 00:22 00:35 00:45 WBC (3.5-10.8) 10^3/ul RBC (4.0-5.4) 10^6/ul Hgb (12.0-16.0) g/dl Hct (35-47) % MCV (80-97) fL MCH (27-31) pg MCHC (31-36) g/dl RDW (10.5-15) % Plt Count (150-450) 10^3/ul MPV (7.4-10.4) um3 Neut % (Auto) (38-83) % Lymph % (Auto) (25-47) % M[place]racken % (Auto) (0-7) % Eos % (Auto) (0-6) % Baso % (Auto) (0-2) % Absolute Neuts (auto) (1.5-7.7) 10^3/ul Absolute Lymphs (auto) (1.0-4.8) 10^3/ul Absolute Monos (auto) (0-0.8) 10^3/ul Absolute Eos (auto) (0-0.6) 10^3/ul Absolute Basos (auto) (0-0.2) 10^3/ul Absolute Nucleated RBC 10^3/ul Nucleated RBC % INR (Anticoag Therapy) 1.43 H (0.77-1.02) APTT 32.5 (26.0-36.3) seconds Patient Temperature Not Reportable ABG pH 7.30 L (7.35-7.45) ABG pH (Temp Correct) Not Reportable ABG pCO2 60 H (35-45) mmHg ABG pCO2 (Temp Corrct Not Reportable ABG pO2 62 L (80-100) mmHg ABG pO2 (Temp Correct Not Reportable ABG HCO3 26.5 (19-31) mmol/L ABG O2 Saturation 94.8 L (95-98) % ABG Base Excess 2.2 H (-2.0-2.0) Respiration Rate Not Reportable O2 Delivery Device 9lpm oxymask Ventilator Type Not Reportable Vent Mode Not Reportable FiO2 Not Reportable Inspiratory Time Not Reportable PEEP Not Reportable Pressure Support Not Reportable Pressure Control Not Reportable EPAP Not Reportable IPAP Not Reportable BiPAP Not Reportable Sodium (133-145) mmol/L Potassium (3.5-5.0) mmol/L Chloride (101-111) mmol/L Carbon Dioxide (22-32) mmol/L Anion Gap (2-11) mmol/L BUN (6-24) mg/dL Creatinine (0.51-0.95) mg/dL Est GFR ( Amer) (>60) Est GFR (Non-Af Amer) (>60) BUN/Creatinine Ratio (8-20) Glucose (70-100) mg/dL Lactic Acid (0.5-2.0) mmol/L Calcium (8.6-10.3) mg/dL Total Bilirubin (0.2-1.0) mg/dL AST (13-39) U/L ALT (7-52) U/L Alkaline Phosphatase (34-104) U/L Troponin I (<0.04) ng/mL C-Reactive Protein (< 5.00) mg/L Total Protein (6.4-8.9) g/dL Albumin (3.2-5.2) g/dL Globulin (2-4) g/dL Albumin/Globulin Ratio (1-3) Urine Color Urine Appearance Urine pH (5-9) Ur Specific [place] (1.010-1.030) Urine Protein (Negative) Urine Ketones (Negative) Urine Blood (Negative) Urine Nitrate (Negative) Urine Bilirubin (Negative) Urine Urobilinogen (Negative) Ur Leukocyte Esterase (Negative) Urine WBC (Auto) (Absent) Urine RBC (Auto) (Absent) Ur Squamous Epith Cells (Absent) Urine Bacteria (Absent) Urine Glucose (Negative) Influenza A (Rapid) Negative (Negative) Influenza B (Rapid) Negative (Negative) 05/02/17 05/02/17 05/02/17 Range/Units 00:45 00:45 00:45 WBC 7.9 (3.5-10.8) 10^3/ul RBC 3.05 L (4.0-5.4) 10^6/ul Hgb 9.7 L (12.0-16.0) g/dl Hct 31 L (35-47) % MCV 100 H (80-97) fL MCH 32 H (27-31) pg MCHC 32 (31-36) g/dl RDW 14 (10.5-15) % Plt Count 250 (150-450) 10^3/ul MPV 8 (7.4-10.4) um3 Neut % (Auto) 76.4 (38-83) % Lymph % (Auto) 13.3 L (25-47) % Mccracken % (Auto) 6.8 (0-7) % Eos % (Auto) 3.2 (0-6) % Baso % (Auto) 0.3 (0-2) % Absolute Neuts (auto) 6.0 (1.5-7.7) 10^3/ul Absolute Lymphs (auto) 1.0 (1.0-4.8) 10^3/ul Absolute Monos (auto) 0.5 (0-0.8) 10^3/ul Absolute Eos (auto) 0.3 (0-0.6) 10^3/ul Absolute Basos (auto) 0 (0-0.2) 10^3/ul Absolute Nucleated RBC 0 10^3/ul Nucleated RBC % 0 INR (Anticoag Therapy) (0.77-1.02) APTT (26.0-36.3) seconds Patient Temperature ABG pH (7.35-7.45) ABG pH (Temp Correct) ABG pCO2 (35-45) mmHg ABG pCO2 (Temp Corrct ABG pO2 (80-100) mmHg ABG pO2 (Temp Correct ABG HCO3 (19-31) mmol/L ABG O2 Saturation (95-98) % ABG Base Excess (-2.0-2.0) Respiration Rate O2 Delivery Device Ventilator Type Vent Mode FiO2 Inspiratory Time PEEP Pressure Support Pressure Control EPAP IPAP BiPAP Sodium 136 (133-145) mmol/L Potassium 5.2 H (3.5-5.0) mmol/L Chloride 104 (101-111) mmol/L Carbon Dioxide 28 (22-32) mmol/L Anion Gap 4 (2-11) mmol/L BUN 37 H (6-24) mg/dL Creatinine 0.82 (0.51-0.95) mg/dL Est GFR ( Amer) 91.5 (>60) Est GFR (Non-Af Amer) 71.1 (>60) BUN/Creatinine Ratio 45.1 H (8-20) Glucose 116 H (70-100) mg/dL Lactic Acid 0.7 (0.5-2.0) mmol/L Calcium 8.8 (8.6-10.3) mg/dL Total Bilirubin 0.20 (0.2-1.0) mg/dL AST 16 (13-39) U/L ALT 15 (7-52) U/L Alkaline Phosphatase 106 H (34-104) U/L Troponin I 0.01 (<0.04) ng/mL C-Reactive Protein 15.50 H (< 5.00) mg/L Total Protein 6.3 L (6.4-8.9) g/dL Albumin 3.4 (3.2-5.2) g/dL Globulin 2.9 (2-4) g/dL Albumin/Globulin Ratio 1.2 (1-3) Urine Color Urine Appearance Urine pH (5-9) Ur Specific [place] (1.010-1.030) Urine Protein (Negative) Urine Ketones (Negative) Urine Blood (Negative) Urine Nitrate (Negative) Urine Bilirubin (Negative) Urine Urobilinogen (Negative) Ur Leukocyte Esterase (Negative) Urine WBC (Auto) (Absent) Urine RBC (Auto) (Absent) Ur Squamous Epith Cells (Absent) Urine Bacteria (Absent) Urine Glucose (Negative) Influenza A (Rapid) (Negative) Influenza B (Rapid) (Negative) 05/02/17 05/02/17 Range/Units 01:43 04:30 WBC (3.5-10.8) 10^3/ul RBC (4.0-5.4) 10^6/ul Hgb (12.0-16.0) g/dl Hct (35-47) % MCV (80-97) fL MCH (27-31) pg MCHC (31-36) g/dl RDW (10.5-15) % Plt Count (150-450) 10^3/ul MPV (7.4-10.4) um3 Neut % (Auto) (38-83) % Lymph % (Auto) (25-47) % M[place]racken % (Auto) (0-7) % Eos % (Auto) (0-6) % Baso % (Auto) (0-2) % Absolute Neuts (auto) (1.5-7.7) 10^3/ul Absolute Lymphs (auto) (1.0-4.8) 10^3/ul Absolute Monos (auto) (0-0.8) 10^3/ul Absolute Eos (auto) (0-0.6) 10^3/ul Absolute Basos (auto) (0-0.2) 10^3/ul Absolute Nucleated RBC 10^3/ul Nucleated RBC % INR (Anticoag Therapy) (0.77-1.02) APTT (26.0-36.3) seconds Patient Temperature ABG pH (7.35-7.45) ABG pH (Temp Correct) ABG pCO2 (35-45) mmHg ABG pCO2 (Temp Corrct ABG pO2 (80-100) mmHg ABG pO2 (Temp Correct ABG HCO3 (19-31) mmol/L ABG O2 Saturation (95-98) % ABG Base Excess (-2.0-2.0) Respiration Rate O2 Delivery Device Ventilator Type Vent Mode FiO2 Inspiratory Time PEEP Pressure Support Pressure Control EPAP IPAP BiPAP Sodium (133-145) mmol/L Potassium (3.5-5.0) mmol/L Chloride (101-111) mmol/L Carbon Dioxide (22-32) mmol/L Anion Gap (2-11) mmol/L BUN (6-24) mg/dL Creatinine (0.51-0.95) mg/dL Est GFR ( Amer) (>60) Est GFR (Non-Af Amer) (>60) BUN/Creatinine Ratio (8-20) Glucose (70-100) mg/dL Lactic Acid 0.8 (0.5-2.0) mmol/L Calcium (8.6-10.3) mg/dL Total Bilirubin (0.2-1.0) mg/dL AST (13-39) U/L ALT (7-52) U/L Alkaline Phosphatase (34-104) U/L Troponin I (<0.04) ng/mL C-Reactive Protein (< 5.00) mg/L Total Protein (6.4-8.9) g/dL Albumin (3.2-5.2) g/dL Globulin (2-4) g/dL Albumin/Globulin Ratio (1-3) Urine Color Yellow Urine Appearance Clear Urine pH 5.0 (5-9) Ur Specific [place] 1.012 (1.010-1.030) Urine Protein Negative (Negative) Urine Ketones Negative (Negative) Urine Blood 1+ A (Negative) Urine Nitrate Negative (Negative) Urine Bilirubin Negative (Negative) Urine Urobilinogen Negative (Negative) Ur Leukocyte Esterase Trace A (Negative) Urine WBC (Auto) 1+(6-10/hpf) A (Absent) Urine RBC (Auto) Absent (Absent) Ur Squamous Epith Cells Present A (Absent) Urine Bacteria Absent (Absent) Urine Glucose Negative (Negative) Influenza A (Rapid) (Negative) Influenza B (Rapid) (Negative) CXR, personally reviewed: white out L lung suspicious for mucous plugging Impression: 61F HX multiple sclerosis presents with acute on chronic hypox/ hypercap respiratory failure 2nd L lung mucous plugging vs L pneumonia DIAGNOSIS & PLAN Primary acute on chronic hypoxic respiratory failure 2nd mucous plugging vs pneumonia : given azithromycin & piperacillin/tazobactam in ED, will continue with piperacillin/tazobactam : IVFs, cautiously given HX CHF : BiPap : supplemental oxygen : blood & sputum CXs : influenza negative : check urine Legionella & S pneumo antigens : supportive care Secondary ESBL E coli UTI 02/2017 : sensitive to piperacillin/tazobactam : recheck UA COPD, refused home oxygen : continue albuterol : supplemental oxygen diastoic HF : continue furosemide HTN : review meds once reconciled PAOD : review meds once reconciled end stage multiple sclerosis, secondary progressive : DNR/I GERD : omeparazole Admission Rational: inpatient for acute on chronic hypoxic respiratory failure requiring BiPap & ICU monitoring in a patient at high risk of mortality DVTp: continue rivaroxaban Code Status: DNR/I HCP: daughterZoe
--- NOTE | 2017-05-02 03:24 | ED ---
Katerin Brower Julia, scribed for Sanya Duarte MD on 05/02/17 at 0028 . Shortness of Breath - HPI Summary HPI Summary: This patient is a 61 year old F BIBA to [facility] from [facility] due to decreased oxygen saturation around 60%. Patient was told she had blue lips prior to arrival. Patient denies SOB and chest pain. Patient states she is usually on 2L of O2, but has been recently using 4 or 5 liters. Patient is unable to move extremities. Patient does not take blood thinners. Patient has a history of a blood clot in her LLE. Medications reviewed. - History of Current Complaint Chief Complaint: EDShortnessOfBreath Time Seen by Provider: 05/02/17 00:14 Hx Obtained From: Patient, EMS Onset/Duration: Lasting Hours Dyspnea At: Rest Associated Signs & Symptoms: Negative - Allergy/Home Medications Allergies/Adverse Reactions: Allergies Allergy/AdvReac Type Severity Reaction Status Date / Time latex Allergy Unknown Verified 04/18/17 20:53 Reaction Details PMH/Surg Hx/FS Hx/Imm Hx Endocrine/Hematology History: Denies: Hx Anticoagulant Therapy, Hx Diabetes, Hx Thyroid Disease Cardiovascular History: Reports: Hx Congestive Heart Failure - 08/07 admission, Hx Hypertension - possible, Other Cardiovascular Problems/Disorders - PVD Denies: Hx Pacemaker/ICD Respiratory History: Reports: Hx Chronic Obstructive Pulmonary Disease (COPD) - possible, Hx Pneumonia, Other Respiratory Problems/Disorders - hypoaxia - on 2L O2 continuously Denies: Hx Asthma GI History: Reports: Hx Gastroesophageal Reflux Disease, Other GI Disorders - chronic constipation History: Reports: Other Problems/Disorders - frequent UTI Denies: Hx Dialysis, Hx Renal Disease Musculoskeletal History: Reports: Other Musculoskeletal History - chronic right leg pain, contractures d/t MS Comment Only: Hx Arthritis - OSTEO Sensory History: Reports: Hx Cataracts Denies: Hx Contacts or Glasses, Hx Hearing Aid Opthamlomology History: Reports: Hx Cataracts Denies: Hx Contacts or Glasses Neurological History: Reports: Other Neuro Impairments/Disorders - ADVANCED MS, QUADRAPALEGIC Denies: Hx Dementia, Hx Seizures Psychiatric History: Reports: Hx Anxiety, Hx Depression, Hx Substance Abuse, Other Psychiatric Issues/Disorders - insomnia Denies: Hx Panic Disorder - Surgical History Surgery Procedure, Year, and Place: 3 skin grafts on right arm; URETERAL STENT, [facility] 2010, F[place]ULA,[facility], RIGHT ILIAC ARTERY; cataract repair Hx Anesthesia Reactions: No - Immunization History Date of Tetanus Vaccine: unknown Date of Influenza Vaccine: this season Infectious Disease History: No Infectious Disease History: Denies: Hx Hepatitis, Hx Human Immunodeficiency Virus (HIV), Traveled Outside the [place] in Last 30 Days - Family History Known Family History: Positive: Other - Negative malignant hyperthermia, negative anesthesia reaction - Social History Alcohol Use: None Hx Substance Use: No Substance Use Type: Reports: None Hx Tobacco Use: Yes Smoking Status (MU): Former Smoker Review of Systems Negative: Chest Pain Positive: Other - decrease SaO2. Negative: Shortness Of Breath Positive: Decreased ROM - unable to move extremities at baseline All Other Systems Reviewed And Are Negative: Yes Physical Exam - Summary Physical Exam Summary: VITAL SIGNS: Reviewed. GENERAL: Patient is a well-developed and nourished female who is lying comfortable in the stretcher. Patient is not in any acute respiratory distress. HEAD AND FACE: No signs of trauma. No ecchymosis, hematomas or skull depressions. No sinus tenderness. EYES: PERRLA, EOMI x 2, No injected conjunctiva, no nystagmus. EARS: Hearing grossly intact. Ear canals and tympanic membranes are within normal limits. MOUTH: Oropharynx within normal limits. NECK: Supple, trachea is midline, no adenopathy, no JVD, no carotid bruit, no c- spine tenderness, neck with full ROM. CHEST: Symmetric, no tenderness at palpation LUNGS: Clear to auscultation bilaterally, with decreased breath sounds bilaterally. No wheezing or crackles. CVS: Regular rate and rhythm, S1 and S2 present, no murmurs or gallops appreciated. ABDOMEN: Soft, non-tender. Abdomen is distented. No rebound no guarding, and no masses palpated. Bowel sounds are normal. EXTREMITIES: Quadriplegic at baseline, no edema, no cyanosis or clubbing. NEURO: Alert and oriented x 3. No acute neurological deficits. Speech is normal and follows commands. SKIN: Dry and warm Triage Information Reviewed: Yes Vital Signs On Initial Exam: Initial Vitals Temp Pulse Resp BP Pulse Ox 97.9 F 79 18 97/57 92 05/01/17 23:58 05/01/17 23:58 05/01/17 23:58 05/01/17 23:58 05/01/17 23:58 Vital Signs Reviewed: Yes Diagnostics - Vital Signs Vital Signs Temp Pulse Resp BP Pulse Ox 05/01/17 23:58 97.9 F 79 18 97/57 92 - Laboratory Lab Results: Lab Results 05/02/17 05/02/17 05/02/17 Range/Units 00:22 00:35 00:45 WBC (3.5-10.8) 10^3/ul RBC (4.0-5.4) 10^6/ul Hgb (12.0-16.0) g/dl Hct (35-47) % MCV (80-97) fL MCH (27-31) pg MCHC (31-36) g/dl RDW (10.5-15) % Plt Count (150-450) 10^3/ul MPV (7.4-10.4) um3 Neut % (Auto) (38-83) % Lymph % (Auto) (25-47) % [place] % (Auto) (0-7) % Eos % (Auto) (0-6) % Baso % (Auto) (0-2) % Absolute Neuts (auto) (1.5-7.7) 10^3/ul Absolute Lymphs (auto) (1.0-4.8) 10^3/ul Absolute Monos (auto) (0-0.8) 10^3/ul Absolute Eos (auto) (0-0.6) 10^3/ul Absolute Basos (auto) (0-0.2) 10^3/ul Absolute Nucleated RBC 10^3/ul Nucleated RBC % INR (Anticoag Therapy) 1.43 H (0.77-1.02) APTT 32.5 (26.0-36.3) seconds Patient Temperature Not Reportable ABG pH 7.30 L (7.35-7.45) ABG pH (Temp Correct) Not Reportable ABG pCO2 60 H (35-45) mmHg ABG pCO2 (Temp Corrct Not Reportable ABG pO2 62 L (80-100) mmHg ABG pO2 (Temp Correct Not Reportable ABG HCO3 26.5 (19-31) mmol/L ABG O2 Saturation 94.8 L (95-98) % ABG Base Excess 2.2 H (-2.0-2.0) Respiration Rate Not Reportable O2 Delivery Device 9lpm oxymask Ventilator Type Not Reportable Vent Mode Not Reportable FiO2 Not Reportable Inspiratory Time Not Reportable PEEP Not Reportable Pressure Support Not Reportable Pressure Control Not Reportable EPAP Not Reportable IPAP Not Reportable BiPAP Not Reportable Sodium (133-145) mmol/L Potassium (3.5-5.0) mmol/L Chloride (101-111) mmol/L Carbon Dioxide (22-32) mmol/L Anion Gap (2-11) mmol/L BUN (6-24) mg/dL Creatinine (0.51-0.95) mg/dL Est GFR ( Amer) (>60) Est GFR (Non-Af Amer) (>60) BUN/Creatinine Ratio (8-20) Glucose (70-100) mg/dL Lactic Acid (0.5-2.0) mmol/L Calcium (8.6-10.3) mg/dL Total Bilirubin (0.2-1.0) mg/dL AST (13-39) U/L ALT (7-52) U/L Alkaline Phosphatase (34-104) U/L Troponin I (<0.04) ng/mL C-Reactive Protein (< 5.00) mg/L Total Protein (6.4-8.9) g/dL Albumin (3.2-5.2) g/dL Globulin (2-4) g/dL Albumin/Globulin Ratio (1-3) Urine Color Urine Appearance Urine pH (5-9) Ur Specific [place] (1.010-1.030) Urine Protein (Negative) Urine Ketones (Negative) Urine Blood (Negative) Urine Nitrate (Negative) Urine Bilirubin (Negative) Urine Urobilinogen (Negative) Ur Leukocyte Esterase (Negative) Urine WBC (Auto) (Absent) Urine RBC (Auto) (Absent) Ur Squamous Epith Cells (Absent) Urine Bacteria (Absent) Urine Glucose (Negative) Influenza A (Rapid) Negative (Negative) Influenza B (Rapid) Negative (Negative) 05/02/17 05/02/17 05/02/17 Range/Units 00:45 00:45 00:45 WBC 7.9 (3.5-10.8) 10^3/ul RBC 3.05 L (4.0-5.4) 10^6/ul Hgb 9.7 L (12.0-16.0) g/dl Hct 31 L (35-47) % MCV 100 H (80-97) fL MCH 32 H (27-31) pg MCHC 32 (31-36) g/dl RDW 14 (10.5-15) % Plt Count 250 (150-450) 10^3/ul MPV 8 (7.4-10.4) um3 Neut % (Auto) 76.4 (38-83) % Lymph % (Auto) 13.3 L (25-47) % Valencia % (Auto) 6.8 (0-7) % Eos % (Auto) 3.2 (0-6) % Baso % (Auto) 0.3 (0-2) % Absolute Neuts (auto) 6.0 (1.5-7.7) 10^3/ul Absolute Lymphs (auto) 1.0 (1.0-4.8) 10^3/ul Absolute Monos (auto) 0.5 (0-0.8) 10^3/ul Absolute Eos (auto) 0.3 (0-0.6) 10^3/ul Absolute Basos (auto) 0 (0-0.2) 10^3/ul Absolute Nucleated RBC 0 10^3/ul Nucleated RBC % 0 INR (Anticoag Therapy) (0.77-1.02) APTT (26.0-36.3) seconds Patient Temperature ABG pH (7.35-7.45) ABG pH (Temp Correct) ABG pCO2 (35-45) mmHg ABG pCO2 (Temp Corrct ABG pO2 (80-100) mmHg ABG pO2 (Temp Correct ABG HCO3 (19-31) mmol/L ABG O2 Saturation (95-98) % ABG Base Excess (-2.0-2.0) Respiration Rate O2 Delivery Device Ventilator Type Vent Mode FiO2 Inspiratory Time PEEP Pressure Support Pressure Control EPAP IPAP BiPAP Sodium 136 (133-145) mmol/L Potassium 5.2 H (3.5-5.0) mmol/L Chloride 104 (101-111) mmol/L Carbon Dioxide 28 (22-32) mmol/L Anion Gap 4 (2-11) mmol/L BUN 37 H (6-24) mg/dL Creatinine 0.82 (0.51-0.95) mg/dL Est GFR ( Amer) 91.5 (>60) Est GFR (Non-Af Amer) 71.1 (>60) BUN/Creatinine Ratio 45.1 H (8-20) Glucose 116 H (70-100) mg/dL Lactic Acid 0.7 (0.5-2.0) mmol/L Calcium 8.8 (8.6-10.3) mg/dL Total Bilirubin 0.20 (0.2-1.0) mg/dL AST 16 (13-39) U/L ALT 15 (7-52) U/L Alkaline Phosphatase 106 H (34-104) U/L Troponin I 0.01 (<0.04) ng/mL C-Reactive Protein 15.50 H (< 5.00) mg/L Total Protein 6.3 L (6.4-8.9) g/dL Albumin 3.4 (3.2-5.2) g/dL Globulin 2.9 (2-4) g/dL Albumin/Globulin Ratio 1.2 (1-3) Urine Color Urine Appearance Urine pH (5-9) Ur Specific [place] (1.010-1.030) Urine Protein (Negative) Urine Ketones (Negative) Urine Blood (Negative) Urine Nitrate (Negative) Urine Bilirubin (Negative) Urine Urobilinogen (Negative) Ur Leukocyte Esterase (Negative) Urine WBC (Auto) (Absent) Urine RBC (Auto) (Absent) Ur Squamous Epith Cells (Absent) Urine Bacteria (Absent) Urine Glucose (Negative) Influenza A (Rapid) (Negative) Influenza B (Rapid) (Negative) 05/02/17 Range/Units 01:43 WBC (3.5-10.8) 10^3/ul RBC (4.0-5.4) 10^6/ul Hgb (12.0-16.0) g/dl Hct (35-47) % MCV (80-97) fL MCH (27-31) pg MCHC (31-36) g/dl RDW (10.5-15) % Plt Count (150-450) 10^3/ul MPV (7.4-10.4) um3 Neut % (Auto) (38-83) % Lymph % (Auto) (25-47) % [place] % (Auto) (0-7) % Eos % (Auto) (0-6) % Baso % (Auto) (0-2) % Absolute Neuts (auto) (1.5-7.7) 10^3/ul Absolute Lymphs (auto) (1.0-4.8) 10^3/ul Absolute Monos (auto) (0-0.8) 10^3/ul Absolute Eos (auto) (0-0.6) 10^3/ul Absolute Basos (auto) (0-0.2) 10^3/ul Absolute Nucleated RBC 10^3/ul Nucleated RBC % INR (Anticoag Therapy) (0.77-1.02) APTT (26.0-36.3) seconds Patient Temperature ABG pH (7.35-7.45) ABG pH (Temp Correct) ABG pCO2 (35-45) mmHg ABG pCO2 (Temp Corrct ABG pO2 (80-100) mmHg ABG pO2 (Temp Correct ABG HCO3 (19-31) mmol/L ABG O2 Saturation (95-98) % ABG Base Excess (-2.0-2.0) Respiration Rate O2 Delivery Device Ventilator Type Vent Mode FiO2 Inspiratory Time PEEP Pressure Support Pressure Control EPAP IPAP BiPAP Sodium (133-145) mmol/L Potassium (3.5-5.0) mmol/L Chloride (101-111) mmol/L Carbon Dioxide (22-32) mmol/L Anion Gap (2-11) mmol/L BUN (6-24) mg/dL Creatinine (0.51-0.95) mg/dL Est GFR ( Amer) (>60) Est GFR (Non-Af Amer) (>60) BUN/Creatinine Ratio (8-20) Glucose (70-100) mg/dL Lactic Acid (0.5-2.0) mmol/L Calcium (8.6-10.3) mg/dL Total Bilirubin (0.2-1.0) mg/dL AST (13-39) U/L ALT (7-52) U/L Alkaline Phosphatase (34-104) U/L Troponin I (<0.04) ng/mL C-Reactive Protein (< 5.00) mg/L Total Protein (6.4-8.9) g/dL Albumin (3.2-5.2) g/dL Globulin (2-4) g/dL Albumin/Globulin Ratio (1-3) Urine Color Yellow Urine Appearance Clear Urine pH 5.0 (5-9) Ur Specific [place] 1.012 (1.010-1.030) Urine Protein Negative (Negative) Urine Ketones Negative (Negative) Urine Blood 1+ A (Negative) Urine Nitrate Negative (Negative) Urine Bilirubin Negative (Negative) Urine Urobilinogen Negative (Negative) Ur Leukocyte Esterase Trace A (Negative) Urine WBC (Auto) 1+(6-10/hpf) A (Absent) Urine RBC (Auto) Absent (Absent) Ur Squamous Epith Cells Present A (Absent) Urine Bacteria Absent (Absent) Urine Glucose Negative (Negative) Influenza A (Rapid) (Negative) Influenza B (Rapid) (Negative) Result Diagrams: 05/02/17 00:45 05/02/17 00:45 Lab Statement: Any lab studies that have been ordered have been reviewed, and results considered in the medical decision making process. - Radiology CXR Radiology Interpretation Completed By: ED Physician - Significant ectasis in the L lung. Possible PNA. Possible Post-obstructive PNA. Course/Dx - Course Course Of Treatment: Patient is brought to the ED from [facility] due to decreased oxygen saturation around 60%. Patient was told she had blue lips prior to arrival. Patient denies SOB and chest pain. A CXR reveals PNA and possible post-obstructive PNA. Patient is given Azithromycin, Piperacillin, and IV fluids. Dr. Sargent agrees to admit this patient. - Diagnoses Provider Diagnoses: Pneumonia involving left lung, possible post-obstructive pneumonia - Physician Notifications Discussed Care of Patient With: Timbo Sargent - hospitalist Time Discussed With Above Provider: 02:40 Instructed by Provider To: Admit As Inpatient Discharge - Discharge Plan Condition: Fair Disposition: ADMITTED TO [facility] Referrals: Jael, [Primary Care Provider] - The documentation as recorded by the Katerin hung Julia accurately reflects the service I personally performed and the decisions made by me, Sanya Duarte MD.
[2017-05-02] MEDS ORDERED: CMCS:Melatonin (NF) 3 MG TAB PO PRN (04:17)
[2017-05-02] MEDS ORDERED: Albuterol 2.5 MG/3 ML NEB.SOL* (0.083%) INH PRN (04:17)
[2017-05-02] MEDS ORDERED: Acetaminophen TAB* 325 MG PO PRN (04:17)
[2017-05-02] MEDS ORDERED: Ondansetron INJ* 2 MG/ML VIAL IV PRN (04:23)
[2017-05-02] MEDS ORDERED: NS 0.9% 1000 ML* 1,000 ML IV SCH (04:30)
[2017-05-02] MEDS ORDERED: oxyCODONE TAB* 5 MG TAB PO PRN (05:22)
[2017-05-02 06:25] LABS: ABS Basophils 0.1 10^3/ul (0-0.2); ABS Eosinophils 0.2 10^3/ul (0-0.6); ABS Monocytes 0.5 10^3/ul (0-0.8); ABS Neutrophils 5.9 10^3/ul (1.5-7.7); ABS Nucleated RBC 0 10^3/ul; Eosinophil % 2.2 % (0-6); Hematocrit 31 % (35-47); Hemoglobin 10.2 g/dl (12.0-16.0); Lymphocyte % 12.8 % (25-47); Mean Corpuscular HGB Conc 33 g/dl (31-36); Mean Corpuscular Hemoglobin 33 pg (27-31); Mean Corpuscular Volume 100 fL (80-97); Mean Platelet Volume 8 um3 (7.4-10.4); Nucleated Red Blood Cells % 0.1; Platelet Count 257 10^3/ul (150-450); Red Blood Count 3.13 10^6/ul (4.0-5.4); Red Cell Distribution Width 15 % (10.5-15); White Blood Count 7.6 10^3/ul (3.5-10.8)
[2017-05-02 06:50] LABS: EGFR Non-African American 59.3 (>60)
[2017-05-02] MEDS ORDERED: Piperacillin/Tazobac ADVAN(*) 3.375 GM in NS 0.9% 100 ML* 100 ML IVPB SCH (08:00)
--- NOTE | 2017-05-02 08:02 | RAD ---
HISTORY: Shortness of breath COMPARISONS: April 18, 2017 VIEWS: 1: frontal portable view of the chest at 1:46 AM. The patient is obliqued to the right. Evaluation is limited by head positioning. FINDINGS: LINES AND TUBES: None. CARDIOMEDIASTINAL SILHOUETTE: The cardiomediastinal silhouette is normal for portable technique. PLEURA: The costophrenic angles are sharp. No pleural abnormalities are noted. LUNG PARENCHYMA: Evaluation is limited by positioning. There is competent alveolar opacification with air bronchograms within the left lower lung. ABDOMEN: The upper abdomen is clear. There is no subphrenic gas. BONES AND SOFT TISSUES: No bone or soft tissue abnormalities are noted. IMPRESSION: 1. LIMITED STUDY. 2. LEFT LOWER LUNG CONSOLIDATION. RECOMMEND FOLLOW-UP UNTIL RESOLUTION TO EXCLUDE UNDERLYING PULMONARY PARENCHYMAL PATHOLOGY.
[2017-05-02] MEDS: Albuterol/Ipratropium RESP(NF) MDI (Combivent Respimat) INH SCH ×4 (08:20→19:54)
--- NOTE | 2017-05-02 08:25 | RAD ---
Indication: Hypoxic respiratory failure. Congestive heart failure. Question pneumonia versus mucous plugging. Comparison: May 02, 2017 Technique: Upright AP 0802 hours Report: Chronic moderate elevation of the RIGHT hemidiaphragm with subsegmental atelectasis of the RIGHT lung without change. Improved aeration at the LEFT lung compared with the prior exam consistent with partial resolution of LEFT lung atelectasis. Trace bilateral pleural effusions are not excluded. Negative for pneumothorax. Cardiomegaly. Unremarkable central pulmonary vasculature accounting for crowding resulting from low lung volumes. IMPRESSION: Interval improvement in LEFT lung atelectasis compared with the earlier exam of the same date.
[2017-05-02] MEDS: Piperacillin/Tazobactam 13.5 GM IV 24 hour continuous infusion IVPB SCH ×2 (08:27)
[2017-05-02] MEDS: Baclofen TAB* 20 MG PO SCH ×4 (08:35→22:14)
[2017-05-02] MEDS: BuPROPion XL* 150 MG TAB.XL PO SCH (08:35)
[2017-05-02] MEDS: Docusate CAP* 100 MG PO SCH ×2 (08:35→22:14)
[2017-05-02] MEDS: Polyethylene Glycol 3350* 17 GM PACKET PO SCH (08:36)
[2017-05-02] MEDS: Folic Acid TAB* 1 MG PO SCH (08:36)
[2017-05-02] MEDS: Senna TAB PO SCH ×2 (08:36→22:14)
[2017-05-02] MEDS: Rivaroxaban TAB(*) 15 MG PO SCH ×2 (08:36→22:13)
[2017-05-02] MEDS ORDERED: Lisinopril TAB* 5 MG PO SCH (09:00)
[2017-05-02] MEDS ORDERED: amLODIPine TAB* 5 MG PO SCH (09:00)
[2017-05-02] MEDS ORDERED: Furosemide TAB* 40 MG PO SCH (09:00)
[2017-05-02] MEDS ORDERED: Acetylcysteine INHALATION SOL* 200 MG/ML NEB.SOLN 10 ML INH PRN (10:00)
--- NOTE | 2017-05-02 12:07 | CONSULT ---
Consult Consult: CRITICAL CARE MEDICINE DATE: 05/02/17 TIME: 2130 REFERRING PROVIDER: Chad REASON/CHIEF COMPLAINT: acute hypoxic and hypercarbic resp failure HISTORY OF PRESENT ILLNESS: 61 yo F with end stage MS, copd nonadherent with O2 , with previous admission for resp failure, coming in with hypoxia and left sided atelectasis and likely mucus plugging. rescue with bipap but with still poor recovery although maintained. REVIEW OF SYSTEMS: As per HPI. PAST MEDICAL HISTORY: As per HPI. "multiple sclerosis, secondary progressive ESBL E coli UTI 02/2017 COPD, refused home oxygen chronic hypoxic/hypercapneic respiratory failure diastoic HF HTN PAOD sacral decubitus, healed GERD" MEDICATIONS: Reviewed. ALLERGIES: Reviewed. SOCIAL HISTORY: Reviewed. FAMILY HISTORY: Noncontributory at present. PHYSICAL EXAM: Vital Signs: Reviewed. Neurologic: awake, able to responsed with head shaking and yes no but not much more. otherwise lethargic to obtunded. HEENT: anciteric. mm dry. Cardiovascular: bp soft. distant. Respiratory: poor effort and mechanics with paradoxical breathing and dec air movement without much sounds. Abdomen: obese, soft, accessory muscle use Extremities: cool LABS: Reviewed. IMAGING: Reviewed. MEDICATIONS: Reviewed. ASSESSMENT: PLAN: Neurologic: somnolent due to condition and concern for inability to thrive, but denies pain and she's trying for her. Cardiovascular: perfusing. intravascular holding on low end but interstitially a bit dry. can take on some isolonic fluid. Respiratory: paradoxical breathing and dec air movement without much sounds. mucus plugging certianly. deep suction and NT suction with some clearance but still difficulty ventilating with bipap. dni, which is appropriate. can trial bipap longer with nt suction and pulm toliet efforts as long as mentation tolerating but if failing may need comfort alone. Gastrointestinal: npo. sup prn Renal/Metabolic: f/u lytes. cr up without much muscle mass and f/u fluid needs. Infectious Disease: abx from primary service but not acting infected. Hematology: stable. Endocrine: stable Musculoskeletal: f/u deconditioning from baseline Psych/Social: family briefly updated and more coming in Supportive and preventative care as ordered. Disposition: need icu currently and [facility] will f/u Code Status: DNR Critical Care Time: 35min Stuart Mckeon, PMedHx
[2017-05-02] MEDS: Mirtazapine TAB* 15 MG PO SCH (22:14)
[2017-05-02] MEDS: Gabapentin CAP(*) 300 MG PO SCH (22:14)
[2017-05-02] MEDS: Tamsulosin CAP* 0.4 MG PO SCH (22:14)
[2017-05-03 07:45] LABS: Hematocrit 32 % (35-47); Mean Corpuscular HGB Conc 31 g/dl (31-36); Mean Corpuscular Hemoglobin 32 pg (27-31); Mean Corpuscular Volume 103 fL (80-97); Mean Platelet Volume 8 um3 (7.4-10.4); Platelet Count 232 10^3/ul (150-450); Red Blood Count 3.14 10^6/ul (4.0-5.4); Red Cell Distribution Width 15 % (10.5-15); White Blood Count 14.1 10^3/ul (3.5-10.8)
[2017-05-03 08:19] LABS: Monocytes % 4 % (0-7)
[2017-05-03] MEDS: Albuterol/Ipratropium RESP(NF) MDI (Combivent Respimat) INH SCH (08:26)
[2017-05-03] MEDS: Docusate CAP* 100 MG PO SCH (08:30)
[2017-05-03] MEDS: BuPROPion XL* 150 MG TAB.XL PO SCH (08:30)
[2017-05-03] MEDS: Baclofen TAB* 20 MG PO SCH ×4 (08:30→20:37)
[2017-05-03] MEDS: Senna TAB PO SCH (08:31)
[2017-05-03] MEDS: Folic Acid TAB* 1 MG PO SCH (08:31)
[2017-05-03] MEDS: Polyethylene Glycol 3350* 17 GM PACKET PO SCH (08:31)
[2017-05-03] MEDS: Rivaroxaban TAB(*) 15 MG PO SCH ×2 (08:31→20:37)
[2017-05-03] MEDS: Piperacillin/Tazobactam 13.5 GM IV 24 hour continuous infusion IVPB SCH ×2 (08:40)
--- NOTE | 2017-05-03 12:29 | PN ---
Progress Note - Progress Note Date of Service: 05/03/17 Note: CRITICAL CARE MEDICINE DATE: 05/03/17 TIME: 1135 SUBJECTIVE: Patient seen and examined. family at bedside. PHYSICAL EXAM: Vital Signs: Reviewed. Neurologic: awake, more alert. HEENT: anciteric. Cardiovascular: S1 S2 stable bp. Respiratory: dec bs, mild rhonchi, still poor but better overall. Abdomen: obese, soft, accessory muscle use less Extremities: warmed; deconditioned LABS: Reviewed. IMAGING: Reviewed. MEDICATIONS: Reviewed. ASSESSMENT: 61 F Debilitating MS Acute hypoxic resp failure sec to mucus plugging, atelectasis Now with gnr in blood cx? [place] on admission - improved PLAN: Neurologic: better alertness. ? thrive. avoiding sedation for now. can keep her baclofen Cardiovascular: perfusing. intravascular ok. off ivf Respiratory: breathing tolerable. off bipap to HFO2. see if she can remain with slow wean and avoid any rescue bipap as explained to her not much benefit to re- rescue with bipap but if fatigue factor, then can consider nocturnal ventiolation. NT suction prn still. pulm aric encouraged. Gastrointestinal: reg diet as desired Renal/Metabolic: Cr better. lytes ok. Infectious Disease: zosyn. gnr. ?pna component with translocation. nontoxic. ? lingering esbl Hematology: stable. rivaroxban Endocrine: stable. Musculoskeletal: f/u deconditioning Psych/Social: family updated and pt agreeable Supportive and preventative care as ordered. Disposition: icu today Code Status: DNR, DNI. Critical Care Time: 35min Stuart Mckeon DO
[2017-05-03] MEDS ORDERED: Morphine INJ* 2 MG/ML 1 ML CARPUJECT IV PRN (15:18)
[2017-05-03] MEDS: Gabapentin CAP(*) 300 MG PO SCH (20:37)
[2017-05-03] MEDS: Tamsulosin CAP* 0.4 MG PO SCH (20:37)
[2017-05-03] MEDS: Mirtazapine TAB* 15 MG PO SCH (20:37)
[2017-05-04] MEDS: Senna TAB PO SCH ×2 (00:02→10:02)
[2017-05-04] MEDS: Docusate CAP* 100 MG PO SCH ×2 (00:02→10:01)
[2017-05-04 06:57] LABS: Hematocrit 33 % (35-47); Hemoglobin 10.2 g/dl (12.0-16.0); Mean Corpuscular HGB Conc 31 g/dl (31-36); Mean Corpuscular Hemoglobin 32 pg (27-31); Mean Corpuscular Volume 103 fL (80-97); Mean Platelet Volume 8 um3 (7.4-10.4); Platelet Count 284 10^3/ul (150-450); Red Blood Count 3.21 10^6/ul (4.0-5.4); Red Cell Distribution Width 15 % (10.5-15); White Blood Count 16.6 10^3/ul (3.5-10.8)
[2017-05-04 07:08] LABS: EGFR Non-African American 67.3 (>60)
[2017-05-04 07:27] LABS: ABS Basophils 0.1 10^3/ul (0-0.2); ABS Eosinophils 0 10^3/ul (0-0.6); ABS Lymphocytes 0.5 10^3/ul (1.0-4.8); ABS Monocytes 0.8 10^3/ul (0-0.8); ABS Neutrophils 15.1 10^3/ul (1.5-7.7)
[2017-05-04 07:31] LABS: Monocytes % 2 % (0-7)
[2017-05-04] MEDS: Piperacillin/Tazobactam 13.5 GM IV 24 hour continuous infusion IVPB SCH ×2 (10:00)
[2017-05-04] MEDS: BuPROPion XL* 150 MG TAB.XL PO SCH (10:01)
[2017-05-04] MEDS: Baclofen TAB* 20 MG PO SCH ×2 (10:01→13:11)
[2017-05-04] MEDS: Rivaroxaban TAB(*) 15 MG PO SCH (10:02)
[2017-05-04] MEDS: Polyethylene Glycol 3350* 17 GM PACKET PO SCH (10:02)
[2017-05-04] MEDS: Folic Acid TAB* 1 MG PO SCH (10:02)
--- NOTE | 2017-05-04 11:23 | PN ---
Progress Note - Progress Note Date of Service: 05/04/17 Note: CRITICAL CARE MEDICINE DATE: 05/04/17 TIME: 1110 SUBJECTIVE: Patient seen and examined. sister at bedside. PHYSICAL EXAM: Vital Signs: Reviewed. Neurologic: not awakening, nor alert. no responding to stimuli. HEENT: anciteric. Cardiovascular: S1 S2 stable bp. Respiratory: dec bs with rapid, shallow.poor effort. Abdomen: obese, soft Extremities: warm; deconditioned LABS: Reviewed. IMAGING: Reviewed. MEDICATIONS: Reviewed. ASSESSMENT: 61 F Debilitating MS Acute hypoxic resp failure sec to mucus plugging, atelectasis - failing. corynebacterium in blood cx? - contaminate. [place] on admission - improved PLAN: Neurologic: coma now. Cardiovascular: perfusing on low end but demands down. Respiratory: breathing, but dep on bipap and failing. look to dc bipap. symptom tx only. start morphine gtt. Gastrointestinal: reg diet as desired yesterday but coma now Renal/Metabolic: renal had held. Infectious Disease: zosyn can stop Hematology: stable numbers Endocrine: stable. Musculoskeletal: deconditioned Psych/Social: family updated and waiting for further members Supportive and preventative care as ordered. Disposition: icu today Code Status: DNR, DNI. Critical Care Time: 25min Stuart Mckeon DO
[2017-05-04] MEDS ORDERED: Morphine PCA ADULT* 5 MG/ML 30 ML PCA SCH ×2 (12:00→12:07)
--- NOTE | 2017-05-04 12:22 | RAD ---
INDICATION: Atelectasis COMPARISON: Chest x-ray May 02, 2017 TECHNIQUE: An AP portable view obtained at 0951 hours is submitted. FINDINGS: Bones/Soft Tissues: There are no acute bony findings. There is a scoliotic deformity. Cardiomediastinal: The heart is normal in size. Central pulmonary vessels and interstitium are prominent compatible with interstitial congestion. Lungs: No focal infiltrates. Pleura: Tiny bilateral effusions. Other: None IMPRESSION: INTERSTITIAL CONGESTIVE CHANGES
[2017-05-04 12:56] VITALS: BP 122/60
[2017-05-04] MEDS ORDERED: Morphine INJ* 10 MG/ML 1 ML CARPUJECT IV ONE (13:10)
--- NOTE | 2017-05-04 14:11 | DS ---
CRITICAL CARE MEDICINE DISCHARGE SUMMARY ADMISSION DATE: 05/02/2017 ICU ADMISSION DATE: 05/02/2017 ICU DISCHARGE DATE: 05/04/2017 REFERRING PHYSICIAN: Felicia. DIAGNOSIS: 1. Acute on chronic hypoxic and hypercarbic respiratory failure. 2. Atelectasis with poor secretion clearance. 3. Debilitating multiple sclerosis. 4. Treatment for bacterial pneumonia. MEDICATIONS AT DISCHARGE: None. ALLERGIES: Latex. HOSPITAL COURSE: 61 year old female with history of secondary relapsing remitting multiple sclerosis with previous episodes of respiratory failure with poor secretion clearance. Admitted and initially rescued with bipap treatment for left lower lobe complete atelectasis. Able to recover a little with secretion clears with deep suctioning attempts and intermittent high flow oxygen. Do not intubate and understood her dynamics with not wanting to be dependent on breathing machine. Tolerated for part of her stay but then began feeling more symptomatic and failing to dependence and discussed with family and all agreed for comfort measures as its what patient would want, and she passed at 1:31pm. DISPOSITION: . Stuart Mckeon DO
== END 2017-05-04 13:31 | disposition expired | DRG 189 ==
LOC: ED 23:53 → ICU 05-02 04:28
PROVIDERS: ADMIT Hospitalist; ATTEND Internal Medicine Critical Care Medicine
PROC: 5A09457 Assistance with Respiratory Ventilation, 24-96 Consecutive Hours, Continuous Positive Airway Pressure (ICD-10-PCS; principal; 2017-05-02)
DX: J96.21 Acute and chronic respiratory failure with hypoxia (principal); J15.9 Unspecified bacterial pneumonia; N17.9 Acute kidney failure, unspecified; I11.0 Hypertensive heart disease with heart failure; I50.30 Unspecified diastolic (congestive) heart failure; J98.11 Atelectasis; G35 Multiple sclerosis; J44.9 Chronic obstructive pulmonary disease, unspecified; Z66 Do not resuscitate; K21.9 Gastro-esophageal reflux disease without esophagitis; T17.990A Other foreign object in respiratory tract, part unspecified in causing asphyxiation, initial encounter; I73.9 Peripheral vascular disease, unspecified; X58.XXXA Exposure to other specified factors, initial encounter; Z79.1 Long term (current) use of non-steroidal anti-inflammatories (NSAID); Y92.9 Unspecified place or not applicable; Z79.891 Long term (current) use of opiate analgesic; Z79.899 Other long term (current) drug therapy; Z91.040 Latex allergy status; Z87.891 Personal history of nicotine dependence
CPT/HCPCS: 36415; 36600; 71045; 80048; 80053; 81003; 81015; 82570; 82803; 83605; 83735; 83880; 84100; 84300; 84484; 84540; 85025; 85610; 85730; 86140; 87040; 87086; 87205; 87502; 87899; 94660; 94760; 99284; A9270-GY; J0456; J2270; J2543